=== PATIENT | male | born 2000 | race Caucasian/White ===

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

== ENCOUNTER 2024-11-05 08:00 | Outpatient (RCR) | payer OTHER, SELFPAY ==
--- NOTE | 2024-11-05 09:00 | BH.SGPN.GN ---
Behaviors/Verbalizations/Mental Status: [] Pt alert and oriented, neatly dressed and groomed. Eye contact good. Motor activity appropriate. Speech within normal limits. Affect congruent, mood hopeful. Thoughts linear, logical, no signs of hallucinations or delusions. Reviewed pt?s symptom tracker, no risk for suicidal ideation, plan, or intent 11/05/24. Client Response/Progress/Benefit: []Pt was an active participant in group discussions. Attentive. Able to identify mental health wins including ?realizing I need the help? and being able to stay at work yesterday without walking out. Pt's stressor today is ?work really sucks right now? sharing that he and his boss do not seem to have the same values. Pt is feeling hopeful? this morning. Pt receptive to feedback from peers which pt reported was helpful. Progress noted. Benefited from group support, encouragement, and feedback. Will continue in IOP to prevent decompensation, improve daily functioning, and increase emotional regulation skills. ?? Narrative Note: []
--- NOTE | 2024-11-05 10:10 | BH.SGPN.GN ---
Behaviors/Verbalizations/Mental Status: []Pt alert and oriented, neatly dressed and groomed. Eye contact fair. Motor activity appropriate. Speech within normal limits. Affect congruent, mood dysthymic. Thoughts linear, logical, no signs of hallucinations or delusions. Client Response/Progress/Benefit: [] Pt was attentive during psychoeducation and participated in group activity. Group discussed what contributes to a person?s perspective and how perspective can positively or negatively impact mental health treatment. Pt reflected on their perspective today and how it is impacting them. ?Pt appeared to benefit from increasing awareness of different perspectives and how they can affect mental health. Pt will continue IOP tx to improve emotion regulation, improve mood stability, and prevent decompensation.
--- NOTE | 2024-11-05 12:24 | BH.MDN ---
Multi-Disciplinary Note Note 60-min Individual: Time Started:: 11:15 Date: 11/05/24 Purpose of session/treatment goals addressed:: Purpose of session was to build rapport, gather background information, and start discussion about treatment goals. Eye Contact:: Good Motor Activity:: Appropriate Appearance:: Neat Speech:: Appropriate Mood:: Euthymic Affect:: Congruent Thoughts:: Linear, Logical and No evidence of hallucinations/delusions noted Staff Interventions:: CBT techniques, rapport building, strengths perspective, treatment planning and other (gather background information) Client Response:: Client shared on October 22, 2024 he was writing goodbye letters to his family but then his mom walked in and he opened up to her about what he was doing. This prompted him to go meet with the crisis team for a crisis assessment at the counseling center for suicidal ideation which he reported was passive thoughts and he was referred to the IOP program by the crisis team. The patient feels he had a bipolar mixed episode over the past several weeks characterized by increased irritability, anger outburst, impulsiveness, reckless behaviors such as driving fast, guilt, depression, crying spells and passive suicidal ideation. The patient has not taken any psychiatric medications for 8 months because he feels they made him too numb and groggy and took all of the experience of gurmeet out of life for him. He often becomes depressed after being hypomanic according to the patient. Client shared during this hypomanic state he was extremely angry for 2 of the days and broke a side table and put dents in his freezer door. Client shared he usually has about 2-3 hypomanic episodes a year, but noted this hypomanic episode lasted much longer and he scared himself that he started writing suicide notes because he's never done that before. He reports his daughter is protective against him attempting suicide and also his mother as he would not want to hurt his mother. He has had passive thoughts of twice in the past week. He denies active suicidal ideation, plan for suicide, homicidal ideation, hallucinations or delusions. Client reported while in [facility] he would like to get a more solid mental health diagnosis, explore medication options, and learn better ways to cope. Risks/Concerns:: See above in client response for suicidal thoughts and risk information. Client future oriented. Denies access to firearms and denies access to medications. Progress Toward Goals/Plan:: Pt's first day in program, limited progress noted. Session focused on building rapport, gathering background information (see psychosocial assessment for more information), and starting to discuss treatment goals. Plan is for client to continue IOP to improve mood stability, increase healthy coping, and prevent decompensation. Time Stopped:: 12:15
--- NOTE | 2024-11-05 14:01 | BH.MTP ---
Master Treatment Plan Patient Information Program Physician:: Dr. Whelan Primary Therapist:: TERRY Gil-S
--- NOTE | 2024-11-05 14:01 | BH.MTP ---
Master Treatment Plan Patient Information Program Physician:: Dr. Whelan Primary Therapist:: TERRY Gil-S
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
--- NOTE | 2024-11-06 10:05 | BH.SGPN.GN ---
Behaviors/Verbalizations/Mental Status: []Patient was alert and oriented, casually dressed and groomed. Eye contact good. motor activity appropriate. speech within normal limits. Affect congruent, mood dysthymic. Thoughts linear, logical, no signs of hallucinations or delusion. Client Response/Progress/Benefit: [] Pt participated in the group discussions AEB providing input, nodding and taking notes. Attentive during psychoeducation Goal Setting. Participated during the discussion on common barriers. Pt worked with group to identify common barriers to goal setting. Group also identified benefits of goals as sense of purpose, improved self-confidence, more motivation for other goals, sense of accomplishment, and improved mental health. Pt identified personal benefits to goal setting. Benefited from increased awareness of mental health benefits of goals as well as psychoeducation on SMART goal criteria. Will continue in IOP to improve mood stability, challenge distortions, and prevent decompensation.
[2024-11-06 10:21] VITALS: BP 133/80; PULSE 65
--- NOTE | 2024-11-06 12:46 | PCM.BH.PSYEV ---
Psychiatric Evaluation Initial Evaluation Initial Evaluation: History of Present Illness: [] The patient is a 24-year-old male with a girlfriend of over 3 years and a [id number] daughter with whom he lives. The patient has a history of bipolar disorder and anxiety and has a long psychiatric history with 5 prior psychiatric admissions with the most recent admission being in December 2023 at [facility]. He had a crisis assessment at the [facility] center on October 22, 2024 for suicidal ideation which were was passive but he was referred to the [facility] program by the crisis team. The patient feels he has had a mixed episode over the past several weeks characterized by increased irritability, anger outburst, impulsiveness, reckless behaviors such as driving fast, guilt, depression,'s crying spells and passive suicidal ideation. On October 22, 2024 he went to work and wrote goodbye letters to his family but then decided instead to go to the crisis center. The patient has not taken any psychiatric medications for 8 months because he feels they made him too numb and groggy and took all of the experience of gurmeet out of life for him. He often becomes depressed after being hypomanic according to the patient. He states that this hypomanic episode lasted longer than usual and he was rage cleaning, organizing the house and garage, irritable with his girlfriend and kicked a TV stand. He states he gets like this 2-3 times per year. He he had only 1 day of poor sleep during this episode. 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 He endorses hopelessness, worthlessness, anhedonia, feels he is a burden to everyone. Appetite and sleep are okay and he is getting 7 or 8 hours a night. He also endorses low energy, isolation and avoidance behaviors. He denies any history of self-harm. He drinks 1 or 2 energy drinks daily. He has some decreased concentration and endorses feeling guilty about the impact of his mental health needs on his family. He endorses passive suicidal ideation in hopes that he will not wake up tomorrow. For primary support he has his mother. He feels his daughter is protective against him committing suicide and also his mother as he would not want to hurt his mother. He has had passive thoughts of only twice in the past week. He denies active suicidal ideation, plan for suicide, homicidal ideation, hallucinations or delusions. Current Psychiatric Medications: [] No meds now and has not taken them for 6 to 8 months due to side effects making him numb, groggy and not able to experience gurmeet. He was on Abilify for 15 years up to 20 mg daily and did not like how he felt on it. He is also prescribed Wellbutrin, Lamictal and clonidine but is not taking them. Past Psychiatric History: [] Patient has been admitted 5 times total to psychiatric facilities which has met with his most recent 1 at [facility] in December 2023. He has a history of 4 5 suicide attempts primarily through overdose and once by hanging occurring between the ages of 15 and 23. He began counseling at age 13 after his father . He has also had other counseling with the most recent one in 2018. He has been on various meds including Zoloft and Prozac but they did not help. He finds Wellbutrin the most helpful. Substance Use History: [] The patient vapes e-cigarettes daily all throughout the day. He used to binge drink from age [age] and 1-1 alcoholic Anonymous meeting and does not drink as much now. He used LSD once and uses 1-2 hits of marijuana daily off of vape only to help with sleep at night. Allergies: [] No known allergies. 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 No medical issues and no surgeries. Family Psychiatric History: [] Father, maternal grandfather and paternal uncles have bipolar disorder. Mother has anxiety, depression and PTSD. No completed suicides in the family. His father and the whole side of his father's family have substance abuse issues. Personal/Social History: [] Patient was born and raised in [place]. His father of a heroin overdose at age 38 and his mother is his #1 supporter and the patient is very close to her. The patient thinks his childhood was mostly positive but his parents when he was 11 years old. His mother remarried and he had a good relationship with his stepfather. Patient feels guilty for being kicked out of the house in 2020 due to behavioral and drinking issues. He has 1 older and 1 younger biological brother and 2 stepsiblings with whom he feels closer. He currently lives with his girlfriend of over 3 years and their [id number]-sce daughter and states that their relationship is rough but has gotten a little better lately. He works as a railroad car cleaner for less than 6 months and is considering looking for new jobs. He graduated high school and had 1 semester of college. He enjoys being outside camping, fishing and boating. Legal History: [] No arrests. No DUIs. 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 Review of Systems: [] Review of systems includes occasional headaches but otherwise is negative except as noted in the present illness. Vital Signs: [] Vital signs are reviewed the nurses notes and updated and the patient is deemed medically able to participate in the IOP. Mental Status Examination: [] The patient is a 24-year-old male who appears normal for stated age and is casually dressed and groomed with good hygiene. He is cooperative during the interview and has no psychomotor agitation or retardation. Eye contact is good and speech is normal rate and rhythm and fluent with no pressure. Mood is irritable and pressed. Affect is minimally constricted. Thought process is goal-directed and organized. Thought content: There is evidence of recent passive thoughts of . There is no evidence of suicidal ideation, thoughts of self-harm, plan for suicide, homicidal ideation, hallucinations or delusions. Reality testing is intact. Intelligence is above average. Impulsivity is moderate. Insight is limited but some present. Judgment is intact. Diagnoses: [] 1. Bipolar 2 disorder (currently depressed and irritable) 2. Anxiety disorder, NOS 3. Primary support issues Plan: [] The patient will start the IOP and behavioral health at [facility] as the structure, support, education and group therapy will hopefully prevent worsening of the patient's symptoms. The risk, options, possible complications and side effects of the medications were discussed with the patient and he understands and accepts these. I recommended that the patient take medication for his highly variable moods and history of numerous psychiatric admissions and suicide attempts. The patient agrees to try Vraylar 1.5 mg p.o. daily if his mom agrees that it is an okay medication. Prescription is sent in for this. Lamictal could be added later to help prevent depression and stabilize mood. Strongly recommended that the patient discontinue all energy drink use as these are angiogenic and could contribute to irritability and anger outbursts. The patient should use coffee and wean slowly down to a reasonable doses of coffee such as 2 or 3 cups a day in the morning only. Patient will stay sober from all substance use. He will continue to follow-up with his outpatient providers and I will see the patient in follow-up in 2 weeks.
--- NOTE | 2024-11-06 12:46 | PCM.BH.PSYEV ---
Psychiatric Evaluation Initial Evaluation Initial Evaluation: History of Present Illness: [] The patient is a 24-year-old male with a girlfriend of over 3 years and a [id number]-[id number] daughter with whom he lives. The patient has a history of bipolar disorder and anxiety and has a long psychiatric history with 5 prior psychiatric admissions with the most recent admission being in December 2023 at [facility]. He had a crisis assessment at the [facility] on October 22, 2024 for suicidal ideation which were was passive but he was referred to the [facility] program by the crisis team. The patient feels he has had a mixed episode over the past several weeks characterized by increased irritability, anger outburst, impulsiveness, reckless behaviors such as driving fast, guilt, depression,'s crying spells and passive suicidal ideation. On October 22, 2024 he went to work and wrote goodbye letters to his family but then decided instead to go to the crisis center. The patient has not taken any psychiatric medications for 8 months because he feels they made him too numb and groggy and took all of the experience of gurmeet out of life for him. He often becomes depressed after being hypomanic according to the patient. He states that this hypomanic episode lasted longer than usual and he was rage cleaning, organizing the house and garage, irritable with his girlfriend and kicked a TV stand. He states he gets like this 2-3 times per year. He he had only 1 day of poor sleep during this episode. 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 He endorses hopelessness, worthlessness, anhedonia, feels he is a burden to everyone. Appetite and sleep are okay and he is getting 7 or 8 hours a night. He also endorses low energy, isolation and avoidance behaviors. He denies any history of self-harm. He drinks 1 or 2 energy drinks daily. He has some decreased concentration and endorses feeling guilty about the impact of his mental health needs on his family. He endorses passive suicidal ideation in hopes that he will not wake up tomorrow. For primary support he has his mother. He feels his daughter is protective against him committing suicide and also his mother as he would not want to hurt his mother. He has had passive thoughts of only twice in the past week. He denies active suicidal ideation, plan for suicide, homicidal ideation, hallucinations or delusions. Current Psychiatric Medications: [] No meds now and has not taken them for 6 to 8 months due to side effects making him numb, groggy and not able to experience gurmeet. He was on Abilify for 15 years up to 20 mg daily and did not like how he felt on it. He is also prescribed Wellbutrin, Lamictal and clonidine but is not taking them. Past Psychiatric History: [] Patient has been admitted 5 times total to psychiatric facilities which has met with his most recent 1 at [facility] in December 2023. He has a history of 4 5 suicide attempts primarily through overdose and once by hanging occurring between the ages of 15 and 23. He began counseling at age 13 after his father . He has also had other counseling with the most recent one in 2018. He has been on various meds including Zoloft and Prozac but they did not help. He finds Wellbutrin the most helpful. Substance Use History: [] The patient vapes e-cigarettes daily all throughout the day. He used to binge drink from age [age] and 1-1 alcoholic Anonymous meeting and does not drink as much now. He used LSD once and uses 1-2 hits of marijuana daily off of vape only to help with sleep at night. Allergies: [] No known allergies. 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 No medical issues and no surgeries. Family Psychiatric History: [] Father, maternal grandfather and paternal uncles have bipolar disorder. Mother has anxiety, depression and PTSD. No completed suicides in the family. His father and the whole side of his father's family have substance abuse issues. Personal/Social History: [] Patient was born and raised in [place]. His father of a heroin overdose at age 38 and his mother is his #1 supporter and the patient is very close to her. The patient thinks his childhood was mostly positive but his parents when he was 11 years old. His mother remarried and he had a good relationship with his stepfather. Patient feels guilty for being kicked out of the house in 2020 due to behavioral and drinking issues. He has 1 older and 1 younger biological brother and 2 stepsiblings with whom he feels closer. He currently lives with his girlfriend of over 3 years and their 96-aecij-eih daughter and states that their relationship is rough but has gotten a little better lately. 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 He graduated high school and had 1 semester of college. He enjoys being outside camping, fishing and boating. Legal History: [] No arrests. No DUIs. 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 Review of Systems: [] Review of systems includes occasional headaches but otherwise is negative except as noted in the present illness. Vital Signs: [] Vital signs are reviewed the nurses notes and updated and the patient is deemed medically able to participate in the IOP. Mental Status Examination: [] The patient is a 24-year-old male who appears normal for stated age and is casually dressed and groomed with good hygiene. He is cooperative during the interview and has no psychomotor agitation or retardation. Eye contact is good and speech is normal rate and rhythm and fluent with no pressure. Mood is irritable and pressed. Affect is minimally constricted. Thought process is goal-directed and organized. Thought content: There is evidence of recent passive thoughts of . There is no evidence of suicidal ideation, thoughts of self-harm, plan for suicide, homicidal ideation, hallucinations or delusions. Reality testing is intact. Intelligence is above average. Impulsivity is moderate. Insight is limited but some present. Judgment is intact. Diagnoses: [] 1. Bipolar 2 disorder (currently depressed and irritable) 2. Anxiety disorder, NOS 3. Primary support issues Plan: [] The patient will start the IOP and behavioral health at [facility] as the structure, support, education and group therapy will hopefully prevent worsening of the patient's symptoms. The risk, options, possible complications and side effects of the medications were discussed with the patient and he understands and accepts these. I recommended that the patient take medication for his highly variable moods and history of numerous psychiatric admissions and suicide attempts. The patient agrees to try Vraylar 1.5 mg p.o. daily if his mom agrees that it is an okay medication. Prescription is sent in for this. Lamictal could be added later to help prevent depression and stabilize mood. Strongly recommended that the patient discontinue all energy drink use as these are angiogenic and could contribute to irritability and anger outbursts. The patient should use coffee and wean slowly down to a reasonable doses of coffee such as 2 or 3 cups a day in the morning only. Patient will stay sober from all substance use. He will continue to follow-up with his outpatient providers and I will see the patient in follow-up in 2 weeks.
--- NOTE | 2024-11-06 12:58 | BH.DR.ITP ---
Initial Treatment Plan Patient Information Visit Information: ADMISSION DATE: EXPECTED LOS: 4-6 weeks Problems/Symptoms Problem #1:: Mood instability Symptom:: Irritability, anger outburst, impulsiveness, guilt, depression, crying spells, recent passive suicidal ideation, passive thoughts of , history of hypomania, worthlessness, hopelessness, anhedonia, low energy, isolation, guilt Problem #2:: Anxiety Symptom:: Worry, rumination, avoidance
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
--- NOTE | 2024-11-07 09:00 | BH.SGPN.GN ---
Behaviors/Verbalizations/Mental Status: [] Pt alert and oriented, neatly dressed and groomed. Eye contact good. Motor activity appropriate. Speech within normal limits. Affect congruent, mood dysthymic. Thoughts linear, logical, no signs of hallucinations or delusions. Reviewed pt?s symptom tracker, no risk for suicidal ideation, plan, or intent 11/07/24. Client Response/Progress/Benefit: []Pt was an active participant in group discussions. Attentive. Able to identify mental health wins including using de-escalation skills with his girlfriend and being able to ?bounce back from an argument? with his girlfriend which pt reports does not happen. Pt's stressor today is ?work has just been so awful.? Pt is feeling discontented? this morning. Pt receptive to feedback from peers which pt reported was helpful. Progress noted. Benefited from group support, encouragement, and feedback. Will continue IOP tx to promote use of healthy coping skills, increase distress tolerance, and improve mood stability. ?? Narrative Note: []
--- NOTE | 2024-11-07 10:00 | BH.SGPN.GN ---
Behaviors/Verbalizations/Mental Status: []Eye contact is good. Motor activity is appropriate. Appearance is casual. Speech is Appropriate. Mood is anxious. Affect is congruent. Thoughts are linear and logical. No evidence of psychosis. Client Response/Progress/Benefit: []Pt was an active participant in group discussion. Engaged and attentive during psychoeducation and interactive discussion on coping skills, why people use unhealthy coping skills, how to replace unhealthy coping skills, and internal vs external coping skills. Attentive as peers came up with list of unhealthy coping skills. Pt reported personally, they tend to either isolate or shut down, though often both occur. Group discussed the effects of maladaptive coping skills on mental health. Benefited from increased understanding of unhealthy coping skills and the need for developing healthy internal and external coping skills. Actively participated during experiential group activity and was able to related this activity to group topic. Will continue in IOP to promote healthy thinking patterns, apply healthy coping skills, and promote mood stability. Narrative Note: []
--- NOTE | 2024-11-07 11:05 | BH.SGPN.GN ---
Behaviors/Verbalizations/Mental Status: []Pt alert and oriented, casual in appearance. Eye contact good. Motor activity appropriate. Speech within normal limits. Affect congruent, mood euthymic. Thoughts linear, logical, no signs of hallucinations or delusions. Client Response/Progress/Benefit: [] Pt engaged participant AEB provided contributions during discussion, taking notes, and listening attentively to others. Engaged in the provided activity. Group discussed the different categories of coping skills which included distraction, emotional release, grounding, self-love, and thought challenging. Pt participated in creating a coping skills ?menu? from the different categories of coping skills. Pt's coping skill menu included: yard work, something creative, breathing, celebrating wins, and playing [facility] advocate on thoughts. Appeared to benefit from increasing repertoire of healthy coping skills. Will continue IOP to promote healthy coping, challenge distortions, and prevent decompensation.
--- NOTE | 2024-11-11 09:00 | BH.SGPN.GN ---
Behaviors/Verbalizations/Mental Status: [] Eye contact is good. Motor activity is appropriate. Appearance is casual. Speech is Appropriate. Mood is irritable. Affect is congruent. Thoughts are linear and logical. No evidence of psychosis. Reviewed daily check in sheet and no reports of suicidal ideations or intent. Client Response/Progress/Benefit: [] Pt was an active participant in group discussion. Attentive. Daily symptom tracker notes / for agitation. Able to identify mental health wins and healthy habits. According to pt he has been utilizing calming techniques and communication skills more consistently and has seen benefits. He reports only one ?little episode? however did not elaborate further. It?s unclear if this was anger outburst, depressive episode, or panic attack. Reports feeling ?ye? today. Stating he is in the middle ?not happy and not sad?. Primary stressors related to dealing with a difficulty person in his life. Group provided empathy and discussed strategies for dealing with difficulty people which was beneficial. Will continue in IOP to maintain safety, prevent decompensation, and increase healthy coping. Narrative Note: []
--- NOTE | 2024-11-11 10:05 | BH.SGPN.GN ---
Behaviors/Verbalizations/Mental Status: []Pt alert and oriented, neatly dressed and groomed. Eye contact good. Motor activity appropriate. Speech within normal limits. Affect congruent, mood agitated. Thoughts linear, logical, no signs of hallucinations or delusions. Client Response/Progress/Benefit: [] Pt was an active participant during interactive group discussions. Attentive during psychoeducation on the six types of boundaries (physical, emotional, intellectual, sexual, time, and material) AEB note-taking and providing input. Along with peers contributed to interactive discussion on defining what a boundary is in mental health. Pt along with peers identified challenges to setting boundaries and pt reported a personal barrier of not knowing what boundary to set. Pt along with peers identified the benefits to setting boundaries such as better relationships, increased time for self-care, and increased confidence, and feeling more heard. Group discussed the mental health benefits to establishing boundaries at work, school, and home. Pt benefited from increased awareness and insight on the importance/benefit to setting health boundaries. Will continue in IOP to prevent decompensation, improve daily functioning, and increase self-awareness. Narrative Note: []
--- NOTE | 2024-11-11 11:10 | BH.SGPN.GN ---
Behaviors/Verbalizations/Mental Status: [] Eye contact is good. Motor activity is appropriate. Appearance is casual. Speech is Appropriate. Mood is dysthymic. Affect is congruent. Thoughts are linear and logical. No evidence of psychosis. Client Response/Progress/Benefit: [] Client responded well to session AEB listening attentively to peers, providing input, as well as taking notes throughout. Group discussed different styles of boundary setting. Reports connecting most with rigid style of boundary setting. Participated in small group discussion brainstorming various strategies for improving healthy boundary setting. Pt took time to complete reflection on which skills would like to implement to improve boundaries. Plans to encourage his girlfriend to go to therapy by helping her find local resources. Seemed to benefit from increased awareness of how different boundary styles can impact mental health. Will continue IOP tx to increase consistent application of skills and prevent decompensation. Narrative Note: []
== END 2024-11-13 23:59 ==
LOC: BHIOP 08:00
PROVIDERS: Referring Provider Psychiatry & Neurology Psychiatry; Visit Provider Psychiatry & Neurology Psychiatry
DX: F31.81 Bipolar II disorder (principal); F41.9 Anxiety disorder, unspecified
CPT/HCPCS: S9480; 90834; 90837; 90853

== ENCOUNTER → 2025-02-19 | Outpatient (CLI) | payer OTHER, SELFPAY ==
--- OUTSIDE RECORDS SUMMARY | 2025-02-19 10:26 | XMS RPT_ITS | CCD ---
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 Name Role Phone WESLY RODRIGUEZ Attending Unavailable NO, PHYSICIAN Primary Care Unavailable Flor NOEL, Latoya De Souza Primary Care Provider LATOYA CHAMBERS Attending Unavailab le LATOYA CHAMBERS Primary Care Unavailab le Unavailable Primary Care Provider Unavailabl e No, Physician Primary Care Provider Unavailabl e BENITO CHIANG Consulting Unavailable RAFAL TREVINO Attending Unavailable NASREEN HADLEY Admitting Unavailable NO, PHYSICIAN Primary Care Unavailable NO, PHYSICIAN Primary Care Unavailable SHELLY NARANJO Attending Unavailable Self, Self Primary Care Provider Unavailabl e Unavailable Primary Care Provider Unavailabl e MERLIN CLEANING Attending Unavailable SELF, SELF Primary Care Unavailable SELF, SELF Referring Unavailable SELF, SELF Primary Care Unavailable EDIS CASTLE Attending Unavail able GIORGIO KEN Attending Unavailable PINA COBOS Attending Unavailable PHYSICIAN, NONE Primary Care Unavailable LENARD GRUBBS DO Attending Unavailable PHYSICIAN, NONE Primary Care Unavailable CHRISTIANO STAPLETON Attending Unavaila ble Unavailable Primary Care Provider UnavailJhoana Renteria Referring Unavailable Care Physician, No Primary Primary Care Unava ilable Jhoana Epstein Attending Unavailable Jhoana Epstein Referring Unavailable Care Physician, No Primary Primary Care Unava ilJhoana Jones Attending Unavailable SELF Referring Unavailable DEMETRIS KING JR Attending Unavailable Medications Current Medications Medication Drug Class(es) Dates Sig (Normalized) Sig (Original) acetaminophen 325 mg / oxyCODONE hydrochloride 5 mg oral tablet (2 sources) Opioid Agonist Start: 07-01-2023 End: 07-01-2023 oxyCODONE-acetamin ophen (PERCOCET) 5-325 MG per tablet 1 tablet Start: 07-01-2023 End: 07-04-2023 take 1 tablet by mouth every six hours as needed oxyCODONE-acetaminophen 5-325 MG per tablet Indications: Pain, dental Take 1 tablet by mouth every 6 hours as needed for up to 3 days. 12 tablet 0 07/01/2023 07/04/2023 Active amoxicillin 875 mg / clavulanate 125 mg oral tablet (4 sources) Penicillin-class Antibacterial Start: 06-30-2023 End: 07-07-2023 take 1 tablet by mouth every twelve hours Amoxicillin-clavulanate 875-125 MG tablet Take 1 tablet by mouth every 12 hours for 7 days. 14 tablet 0 06/30/2023 07/07/2023 Active Start: 06-30-2023 End: 06-30-2023 Amoxicillin-clavulanate (AUG MENTIN) 875-125 MG per tablet 1 tablet ARIPiprazole 15 mg oral tablet (10 sources) Atypical Antipsychotic Start: 01-18-2023 End: 02-17-2023 take 1 tablet by mouth once daily ARIPiprazole (ABILIFY) 15 MG tablet Take 1 (one) tablet (15 mg total) by mouth nightly . 30 tablet 0 01/18/2023 02/17/2023 Active Start: 01-16-2023 ARIPiprazole ( ABILIFY) tablet 10 mg Start: 01-16-2023 End: 01-18-2023 ARIPiprazole (ABILIFY) table t 15 mg Start: 01-14-2023 End: 01-16-2023 ARIPiprazole (ABILIFY) table t 5 mg Start: 11-29-2022 End: 01-18-2023 take 1 tablet by mouth once daily ARIPiprazole (Abilify) 2 MG tablet Indications: Severe episode of recurrent major depressive disorder, without psychotic features (HCC) Take 1 (one) tablet (2 mg total) by mouth daily . 30 tablet 1 11/29/2022 01/18/2023 Discontinued (Stop Taking at Discharge) brompheniramine maleate 0.4 mg/ml / dextromethorphan hydrobromide 2 mg/ml / pseudoephedrine hydrochloride 6 mg/ml oral solution (1 source) alpha-Adrenergic Agonist, Uncompetitive H-ouyafv-K-aspartate Receptor Antagonist, Sigma-1 Agonist Start: 11-14-2024 End: 11-21-2024 take 10 mL by mouth four times daily as needed Mjtkgmqhlpexztq-Zjolzoben-QN (BROMFED DM) 2-30-10 mg/5 mL syrup Indications: Fatigue, unspecified type , Acute cough Take 10 mL by mouth four times a day as needed (Cold Symptoms) for up to 7 days. 200 mL 11/14/2024 11/21/2024 Active dextromethorphan hydrobromide 15 mg / guaiFENesin 400 mg / pseudoephedrine hydrochloride 60 mg oral tablet (3 sources) alpha-Adrenergic Agonist, Uncompetitive M-oxppwq-N-aspartate Receptor Antagonist, Sigma-1 Agonist Start: 06-28-2023 take 1 tablet by mouth every six hours as needed pseudoephedrine-dextromethorp zamudio-guaiFENesin (Capmist DM) 60-15-400 MG tablet Take 1 tablet by mouth every 6 hours as needed for Other (Use as needed for cough & congestion.). 30 tablet 0 06/28/2023 Active escitalopram 10 mg oral tablet (8 sources) Serotonin Reuptake Inhibitor Start: 03-28-2023 take 1 tablet by mouth once daily Escitalopram 10 MG tablet Take 1 tablet by mouth daily. 0 03/28/2023 Active Start: 01-14-2023 End: 01-16-2023 escitalopram oxalate (LEXAPR O) tablet 20 mg Start: 11-29-2022 End: 02-17-2023 escitalopram oxalate (LEXAPR O) tablet 10 mg FLUoxetine 10 mg oral capsule (3 sources) Serotonin Reuptake Inhibitor Start: 02-24-2022 End: 03-24-2022 take 1 capsule by mouth once daily, then take 2 capsules by mouth once daily FLUoxetine (PROZAC) 10 MG capsule Take 1 (one) capsule (10 mg total) by mouth daily for 7 days, THEN 2 (two) capsules (20 mg total) daily for 21 days. 49 capsule 0 02/24/2022 03/24/2022 Active ibuprofen 800 mg oral tablet (3 sources) Nonsteroidal Anti-inflammatory Drug Start: 11-14-2024 End: 11-21-2024 take 1 tablet by mouth three times daily as needed for pain ibuprofen (MOTRIN) 800 mg tablet Indications: Fatigue, unspecified type , Acute cough Take 1 tablet by mouth three times a day as needed for pain or fever (specify temp.) for up to 7 days. 21 tablet 11/14/2024 11/21/2024 Active Start: 06-30-2023 End: 06-30-2023 Ibuprofen (MOTRIN) tablet 60 0 mg Start: 01-14-2023 End: 01-18-2023 take 1 tablet by mouth every six hours as needed for pain ibuprofen (ADVIL,MOTRIN) tablet 600 mg lamoTRIgine 100 mg oral tablet (6 sources) Mood Stabilizer, Anti-epileptic Agent Start: 03-28-2023 take 1 tablet by mouth once daily lamoTRIgine 100 MG tablet Take 1 tablet by mouth daily. 0 03/28/2023 Active Start: 01-19-2023 lamoTRIgine (L AMICTAL) 25 MG tablet 1 daily X 11 days and than 2 daily times X 2wks and than 4 daily thereafter. Watch for rash/fever Start: 01/19/23. 120 tablet 0 01/19/2023 Active Start: 01-19-2023 lamoTRIgine (L AMICTAL) 25 MG tablet 1 daily X 11 days and than 2 daily times X 2wks and than 4 daily thereafter. Watch for rash/fever Start: 01/19/23. 120 tablet 0 01/19/2023 Start: 01-16-2023 End: 01-18-2023 lamoTRIgine (LAMICTAL) table t 25 mg lidocaine hydrochloride 20 mg/ml mucous membrane topical solution (3 sources) Antiarrhythmic, Amide Local Anesthetic Start: 06-28-2023 take 15 mL oropharyngeal route every four hours as needed Lidocaine HCl (Lidocaine viscous) 2 % Solution 15 mL by Mouth/Throat route every 4 hours as needed. 100 mL 0 06/28/2023 Active nicotine 2 mg chewing gum (3 sources) Cholinergic Nicotinic Agonist Start: 01-18-2023 End: 02-17-2023 take 2-4 mg oropharyngeal route every two hours as needed nicotine polacrilex (NICORETTE) 2 mg gum Apply 1 (one) each to 2 (two) each (2-4 mg total) to the mouth or throat every 2 (two) hours as needed for smoking cessation . 100 each 0 01/18/2023 02/17/2023 Active Start: 01-14-2023 End: 01-18-2023 take 2-4 mg oropharyngeal route every hour as needed nicotine polacrilex (NICORETTE) gum 2-4 mg Completed/Discontinued Medications Medication Drug Class(es) Dates Sig (Normalized) Sig (Original) aluminum hydroxide 40 mg/ml / magnesium hydroxide 40 mg/ml / simethicone 4 mg/ml oral suspension (1 source) Start: 01-14-2023 End: 01-18-2023 take 30 mL by mouth every four hours as needed aluminum-magnesium hydroxide-simethico ne (MAALOX PLUS) 200-200-20 mg/5 mL suspension 30 mL 2 ml benztropine mesylate 1 mg/ml injection (1 source) Anticholinergic, Antihistamine Start: 01-14-2023 End: 01-18-2023 inject 2 mg by intramuscular injection every twenty-four hours as needed benztropine (COGENTIN) injection 2 mg cloNIDine hydrochloride 0.1 mg oral tablet (1 source) Central alpha-2 Adrenergic Agonist Start: 11-29-2022 End: 01-18-2023 take 1 tablet by mouth at bedtime as needed cloNIDine HCL (CATAPRES) 0.1 MG tablet Indications: Insomnia, unspecified type Take 1 (one) tablet (0.1 mg total) by mouth at bedtime as needed . 30 tablet 1 11/29/2022 01/18/2023 Discontinued (Stop Taking at Discharge) hydrOXYzine hydrochloride 25 mg oral tablet (1 source) Antihistamine Start: 01-14-2023 End: 01-18-2023 take 1 tablet by mouth every six hours as needed for anxiety hydrOXYzine (ATARAX) tablet 50 mg magnesium hydroxide 80 mg/ml oral suspension (1 source) Start: 01-14-2023 End: 01-18-2023 magnesium hydroxide (MOM) 400 mg/5 mL suspension 2,400 mg OLANZapine 5 mg oral tablet (1 source) Atypical Antipsychotic Start: 01-14-2023 End: 01-18-2023 take 1 tablet by mouth every six hours as needed OLANZapine (ZYPREXA) tablet 5 mg OLANZapine (ZyPREXA) injection 5 mg (1 source) Start: 01-14-2023 End: 01-18-2023 OLANZapine (ZyPREXA) injection 5 mg ondansetron 4 mg disintegrating oral tablet (1 source) Serotonin-3 Receptor Antagonist Start: 07-01-2023 End: 07-01-2023 Ondansetron (ZOFRAN-ODT) disintegrating tablet 4 mg traZODone hydrochloride 50 mg oral tablet (1 source) Serotonin Reuptake Inhibitor Start: 01-14-2023 End: 01-18-2023 traZODone (DESYREL) tablet 50 mg Problems Active Problems Problem Classification Problem Date Documented Da te Episodic/Chronic Anxiety disorders (10 sources) Mixed anxiety and depressive disorder; Translations: [Anxiety disorder, unspecified] Onset: 02-24-2022 Chronic Disorders of teeth and jaw (6 sources) Pulpitis; Translations: [Reversible pulpitis] Onset: 06-30-2023 06-30-2023 Episodic Fever of unknown origin (3 sources) Fever; Translations: [Fever, unspecified] Onset: 06-30-2023 06-30-2023 Episodic Malaise and fatigue (2 sources) Fatigue; Translations: [Other fatigue] Onset: 11-14-2024 11-14-2024 Episodic Mood disorders (10 sources) Major depressive disorder, single episode, unspecified; Translations: [Major depressive affective disorder, single episode, unspecified] Onset: 2022 Resolved: 01-14-2023 01-14-2023 Chronic Other lower respiratory disease (1 source) Cough; Translations: [Acute cough] 11-14-2024 Episodic Other upper respiratory infections (6 sources) Sore throat symptom; Translations: [Acute pharyngitis, unspecified] Onset: 06-28-2023 06-28-2023 Episodic Syncope (3 sources) Vasovagal syncope; Translations: [Syncope and collapse] Onset: 12-30-2022 12-30-2022 Episodic Unclassified (1 source) No additional problems on file Unclassified (1 source) Acute cough; Translations: [Acute cough] Onset: 11-14-2024 Viral infection (3 sources) Viral disease; Translations: [Viral infection, unspecified] Onset: 06-28-2023 06-28-2023 Episodic Past or Other Problems Problem Classification Problem Date Documented Da te Episodic/Chronic Administrative/social admission (5 sources) Patient encounter status; Translations: [Persons encountering health services in other specified circumstances] Onset: 02-24-2022 Episodic Residual codes; unclassified (1 source) Insomnia; Translations: [Insomnia, unspecified] Onset: 2022 2022 Episodic Suicide and intentional self-inflicted injury (2 sources) Suicidal ideations; Translations: [Suicidal ideations] Onset: 05-11-2022 Episodic Unclassified (3 sources) Onset: 12-30-2022 12-30-2022 NEGATED: Highlighted row has been ruled out!Unclassified (3 sources) No known active problems 06-28-2023 Results Test Name Value Interpretation Reference Range Facility ED NOTEon 01-30-2025 ED NOTE HNO ID: [id number] Author: ARTUR SHERMAN RN Service: Emergency Medicine Author Type: Registered Nurse Type: ED Notes Filed: 01/30/2025 21:09 Note Text: Pt states does not want to wait hours for room to be available. States is going to go somewhere that isn't as busy. Pt educated to come back if changes or he he still wants evaluated. Pt verbalized understanding Normal [facility] ED Triage Noteon 01-30-2025 ED Triage Note HNO ID: [id number] Author: DAVE MADRID PA-C Service: ? Author Type: Physician Laboratory Associate Type: ED Triage Notes Filed: 01/30/2025 21:10 Note Text: ED TRIAGE PROVIDER NOTE Patient Name: Abel Benitez Service Date: 01/30/25 BRIEF HPI: This is a 24 year old male who presents to the ED with: Syncopal episode. Patient states he became lightheaded today sat on the floor and then passed out. He states he has passed out approximately 5 times over the last 2 years. He has had some testing. He states he was never really told what the issue was. Denies chest pain palpitations. I suspect vasovagal syncope BRIEF EXAM: NAD Awake and Alert Non labored breathing No focal neurological deficits Heart regular rate and rhythm Respirations clear INITIAL WORKUP AND DECISION MAKING: Orders Placed This Encounter CBC w/ diff BMP High Sensitivity Troponin I with Reflex for ED Chest Pain NaCl 0.9% 1,000 mL iv bolus EKG SIGNATURE: Dave Madrid PA-C [facility] CNOVon 11-14-2024 CNOV Office Visit ([facility] ) ABEL BENITEZ ([id number]) 4 M Date Time Provider Department 11/14/24 5:45 PM DEMETRIS KING JR [facility] During your visit today, we recorded the following information about you: Temperature Pulse Respiration Blood pressure 99.2 degrees 105/minute 20/minute 144/88 Weight 104.2 kg Demetris King Jr., MUSIC PRODUCER.[facility] 11/14/2024 9:19 PM Signed [facility] Salima Benitez is a 24 year old male. The patient is a 23-year-old male presenting with acute onset of sore throat, headaches, myalgias, and fatigue. Patient presents with: Cough: Cough, body aches, fatigue, sore throat, diarrhea x 3 days HPI Acute URI Symptoms: - Onset of symptoms began Monday night/Monday morning. - Severe sore throat described as feeling like a branding iron or cigarette in the back of the throat. - Headaches, myalgias, and fatigue. - Low-grade fever noted during triage; has not checked temperature at home. - Mild cough, described as nothing crazy. - Nasal congestion and difficulty breathing through the nose. - Thick, phlegmy mucus in the throat, difficult to expectorate. - Denies diarrhea. - Has not been around anyone with strep throat. - Stayed home from work today due to symptoms. Review of Systems Constitutional: Positive for fatigue and fever. HENT: Positive for sinus pain. Respiratory: Positive for cough. Gastrointestinal: Negative for abdominal pain. Neurological: Positive for headaches. Objective BP 144/88 Pulse 105 Temp 37.3 ?C (99.2 ?F) (Temporal) Resp 20 Wt 104.2 kg (229 lb 12.8 oz) SpO2 98% Physical Exam General: No acute distress. HEENT: Tympanic membranes pearly william, no signs of infection; ear canals unremarkable; pharynx with significant mucus, no exudate. CV: Heart sounds normal, regular rhythm. Abd: Bowel sounds normal; no tenderness to palpation. Skin: Warm, dry. Tests: (Today) Combined COVID-19, Influenza, and RSV test: Results pending 1. Fatigue, unspecified type (R53.83) 2. Acute cough (R05.1) - Onset of symptoms began Monday morning, including severe pharyngitis, cephalalgia, myalgia, and fatigue. Low-grade fever recorded during triage. Mild cough and nasal congestion reported. No significant dyspnea or abdominal tenderness noted on examination. - Tympanic membranes are pearly william with no signs of infection; ear canals are unremarkable. Oropharyngeal examination reveals significant mucus without exudate. - Differential diagnosis includes viral upper respiratory infection, influenza, and COVID-19. - Ordered respiratory panel to test for COVID-19, influenza, and RSV; results expected tomorrow. - Recommended staying home from work and school until results are available. - Initiated Bromfed DM for cough and decongestion, advised use of Mucinex with adequate hydration (8-12 glasses of water per day) to facilitate mucus clearance. - Prescribed ibuprofen 800 mg for 7 days to manage pain and inflammation. - Patient understands and agrees with the treatment plan. { and Recording using [employer] software for draft documentation of the visit was discussed with the patient/authorized investment representative; all questions welcomed and answered. Patient/authorized investment representative agreed to proceed MDM Procedures Demetris King Jr., APRN.[facility] 11/14/2024 6:36 PM Signed Use Tylenol and the prescribed ibuprofen (800?mg for 7 days) as needed for pain, fever, or discomfort. You may use Bromfed DM if you need additional relief from your cough or congestion (note it lasts about 6 hours). Your COVID/influenza test results will be available tomorrow; please plan to stay home tomorrow while you wait for the results. Rest and take it slow with work and activities until you feel better. Referring Provider: SELF [[id number]] Allergies As of Date: 11/14/2024 (No Known Allergies) Date Reviewed: 11/14/2024 Reviewed by: Demetris King Jr., MUSIC PRODUCER.[facility] - Fully Assessed Reason for Visit: Cough [28] Cmt: Cough, body aches, fatigue, sore throat, diarrhea x 3 days Primary Visit Diagnosis:Fatigue, unspecified type [R53.83] Other Visit Diagnosis:Acute cough [R05.1] Order(s):COVID AND INFLUENZA A/B AND RSV PCR, ROUTINE [SQCVFLRS] Order #: [id number]. #:[id number] Brompheniramine-Pseud oeph-DM (BROMFED DM) 2-30-10 mg/5 mL syrupTake 10 mL by mouth four times a day as needed (Cold Symptoms) for up to 7 days.Disp: 200 mLRfl: 0 ibuprofen (MOTRIN) 800 mg tabletTake 1 tablet by mouth three times a day as needed for pain or fever (specify temp.) for up to 7 days.Disp: 21 tabletRfl: 0 Prescriptions as of 11/14/2024 - Brompheniramine-Pseud oeph-DM (BROMFED DM) 2-30-10 mg/5 mL syrup Take 10 mL by mouth four times a day as needed (Cold Symptoms) for up to 7 days. - ibuprofen (MOTRIN) 800 mg tablet Take 1 tablet by mouth thre (more content not included)... Normal [facility] .Auto Diffon 09-21-2023 Basophil, Absolute 0.1 10 3/mcL Normal 0.0-0.3 [facility] ([place]) Comment on above: Performed By: #### A SAL, CMP, CBC, MDW, ADIFF, MORPH, GFR, ALC #### [facility] [address] [place], [place] [address] Basophils/100 WBC (Bld) 0.9 % Normal 0.0-2.5 [facility] ([place]) Comment on above: Performed By: #### A SAL, CMP, CBC, MDW, ADIFF, MORPH, GFR, ALC #### [facility] [address] [place], [place] [address] Eosinophil, Absolute 0.1 10 3/mcL Normal 0.0-0.7 [facility] ([place]) Comment on above: Performed By: #### A SAL, CMP, CBC, MDW, ADIFF, MORPH, GFR, ALC #### [facility] [address] [place], [place] [address] Eosinophils/100 WBC (Bld) 1.1 % Normal 0.0-6.0 [facility] ([place]) Comment on above: Performed By: #### A SAL, CMP, CBC, MDW, ADIFF, MORPH, GFR, ALC #### [facility] [address] [place], [place] [address] Lymphocyte, Absolute 2.4 10 3/mcL Normal 0.9-4.3 [facility] ([place]) Comment on above: Performed By: #### A SAL, CMP, CBC, MDW, ADIFF, MORPH, GFR, ALC #### [facility] [address] [place], [place] [address] Lymphocytes/100 WBC (Bld) 34.5 % Normal 20.0-40.0 [facility] ([place]) Comment on above: Performed By: #### A SAL, CMP, CBC, MDW, ADIFF, MORPH, GFR, ALC #### [facility] [address] [place], [place] [address] Monocyte, Absolute 0.5 10 3/mcL Normal 0.1-1.4 [facility] ([place]) Comment on above: Performed By: #### A SAL, CMP, CBC, MDW, ADIFF, MORPH, GFR, ALC #### [facility] [address] [place], [place] [address] Monocytes/100 WBC (Bld) 7.4 % Normal 2.0-13.0 [facility] ([place]) Comment on above: Performed By: #### A SAL, CMP, CBC, MDW, ADIFF, MORPH, GFR, ALC #### [facility] [address] [place], [place] [address] Neutrophils/100 WBC (Bld) 56.1 % Normal 50.0-75.0 [facility] ([place]) Comment on above: Performed By: #### A SAL, CMP, CBC, MDW, ADIFF, MORPH, GFR, ALC #### [facility] [address] [place], [place] [address] .GFRon 09-21-2023 GFR Non- 79 ml/min/1.73sqm Normal [facility] ([place]) Comment on above: Result Comment: GFR Population mean for , Non- Americans Ages 20-29 = 116 mL/min/1.73 sq.m. Ages 30-39 = 107 mL/min/1.73 sq.m. Ages 40-49 = 99 mL/min/1.73 sq.m. Ages 50-59 = 93 mL/min/1.73 sq.m. Ages 60-69 = 85 mL/min/1.73 sq.m. Ages 70+ = 75 mL/min/1.73 sq.m. Chronic Kidney Disease: Less than 60 mL/min/1.73 square meters End Stage Renal Disease: Less than 15 mL/min/1.73 square meters Performed By: #### A CETA, DG #### [facility] [address] [place], [place] [address] GFR 96 ml/min/1.73sqm Normal [facility] ([place]) Comment on above: Result Comment: GFR Population mean for , Non- Americans Ages 20-29 = 116 mL/min/1.73 sq.m. Ages 30-39 = 107 mL/min/1.73 sq.m. Ages 40-49 = 99 mL/min/1.73 sq.m. Ages 50-59 = 93 mL/min/1.73 sq.m. Ages 60-69 = 85 mL/min/1.73 sq.m. Ages 70+ = 75 mL/min/1.73 sq.m. Chronic Kidney Disease: Less than 60 mL/min/1.73 square meters End Stage Renal Disease: Less than 15 mL/min/1.73 square meters Performed By: #### A CETA, DG #### [facility] [address] [place], [place] [address] .MDWon 09-21-2023 Monocyte Distribution Width 16.09 Normal 0.00-20.00 [facility] ([place]) Comment on above: Result Comment: For ED adult patients suspected of sepsis, MDW<=20.0 does not rule out sepsis or risk of sepsis Performed By: #### A SAL, CMP, CBC, MDW, ADIFF, MORPH, GFR, ALC #### [facility] [address] [place], [place] [address] .Morphon 09-21-2023 Platelet Estimate Normal Normal [facility]) Comment on above: Performed By: #### A SAL, CMP, CBC, MDW, ADIFF, MORPH, GFR, ALC #### [facility] [address] [place] [id number] .NEUABSon 09-21-2023 Neutrophil, Absolute 3.9 10 3/mcL Normal 2.3-8.1 [facility] ([place]) Comment on above: Performed By: #### A SAL, CMP, CBC, MDW, ADIFF, MORPH, GFR, ALC #### [facility] [address] [place] [address] ACETAon 09-21-2023 Acetaminophen [Mass/Vol] 0.0 ug/mL Normal 10.0-30.0 [facility]) Comment on above: Performed By: #### A CETA, DG #### [facility] [address] [place] [id number] Vivienne 09-21-2023 Ethanol Level 4 mg/dL High 0-3 [facility] ([place]) Comment on above: Performed By: #### A SAL, CMP, CBC, MDW, ADIFF, MORPH, GFR, ALC #### [facility] [address] [place] [id number] CBCon 09-21-2023 Erythrocyte distribution width (RBC) [Ratio] 13.1 % Normal 11.5-15.5 [facility] ([place]) Comment on above: Performed By: #### A SAL, CMP, CBC, MDW, ADIFF, MORPH, GFR, ALC #### [facility] [address] [place] [id number] Hematocrit (Bld) [Volume fraction] 43.6 % Normal 40.0-52.0 [facility] ([place]) Comment on above: Performed By: #### A SAL, CMP, CBC, MDW, ADIFF, MORPH, GFR, ALC #### [facility] [address] [place], [place] [address] Hgb 14.8 G/dL Normal 13.0-17.5 [facility] ([place]) Comment on above: Performed By: #### A SAL, CMP, CBC, MDW, ADIFF, MORPH, GFR, ALC #### [facility] [address] [place], [place] [address] MCH (RBC) [Entitic mass] 32.0 pg Normal 27.0-33.0 [facility] ([place]) Comment on above: Performed By: #### A SAL, CMP, CBC, MDW, ADIFF, MORPH, GFR, ALC #### [facility] [address] [place], [place] [address] MCHC 33.9 G/dL Normal 32.0-36.0 [facility] ([place]) Comment on above: Performed By: #### A SAL, CMP, CBC, MDW, ADIFF, MORPH, GFR, ALC #### [facility] [address] [place], [place] [address] MCV (RBC) [Entitic vol] 94.5 fL Normal 81.0-100.0 [facility] ([place]) Comment on above: Performed By: #### A SAL, CMP, CBC, MDW, ADIFF, MORPH, GFR, ALC #### [facility] [address] [place], [place] [address] Platelet 201 10 3/mcL Normal 150-450 [facility] ([place]) Comment on above: Performed By: #### A SAL, CMP, CBC, MDW, ADIFF, MORPH, GFR, ALC #### [facility] [address] [place], [place] [address] Platelet mean volume (Bld) [Entitic vol] 7.7 fL Normal 6.4-10.5 [facility] ([place]) Comment on above: Performed By: #### A SAL, CMP, CBC, MDW, ADIFF, MORPH, GFR, ALC #### [facility] [address] [place], [place] [address] RBC 4.62 10 6/mcL Normal 4.50-6.00 [facility] ([place]) Comment on above: Performed By: #### A SAL, CMP, CBC, MDW, ADIFF, MORPH, GFR, ALC #### [facility] [address] [place], [place] [address] WBC 7.0 10 3/mcL Normal 4.5-10.8 [facility] ([place]) Comment on above: Performed By: #### A SAL, CMP, CBC, MDW, ADIFF, MORPH, GFR, ALC #### [facility] [address] [place], [place] [address] CMPon 09-21-2023 Albumin Level 4.5 G/dL Normal 3.5-5.0 [facility] ([place]) Comment on above: Performed By: #### A CETA, DG #### [facility] [place], [place] [address] Albumin/Globulin [Mass ratio] 2.0 {ratio} Normal 1.1-2.5 [facility] ([place]) Comment on above: Performed By: #### A CETA, DG #### [facility] [address] [place], [place] [address] ALP [Catalytic activity/Vol] 62 U/L Normal 40-135 [facility] ([place]) Comment on above: Performed By: #### A CETA, DG #### [facility] [address] [place], [place] [address] ALT [Catalytic activity/Vol] 23 U/L Normal 16-63 [facility] ([place]) Comment on above: Performed By: #### A CETA, DG #### [address] [place], [place] [address] AST [Catalytic activity/Vol] 14 U/L Normal 10-40 [facility] ([place]) Comment on above: Performed By: #### A CETA, DG #### [address] [place], [place] [address] Bili Total 0.3 mg/dL Normal 0.2-1.0 [facility] ([place]) Comment on above: Result Comment: Use of this assay is not recommended for patients undergoing treatment with eltrombopag due to the potential for falsely elevated results. Performed By: #### A CETCarrie, DG #### Melony [address] [place], [place] [address] BUN/Creatinine Ratio 9 ratio Normal 7-27 [facility] ([place]) Comment on above: Performed By: #### A CETA, DG #### [address] [place], [place] [address] Calcium [Mass/Vol] 9.6 mg/dL Normal 8.4-10.2 [facility] ([place]) Comment on above: Performed By: #### A CETCarrie, DG #### [address] [place], [place] [address] Chloride [Moles/Vol] 104 mmol/L Normal 98-107 [facility] ([place]) Comment on above: Performed By: #### A CETA, DG #### [address] [place], [place] [address] CO2 [Moles/Vol] 33 mmol/L High 22-29 [facility] ([place]) Comment on above: Performed By: #### A CETCarrie, DG #### [address] [place], [place] [address] Creatinine [Mass/Vol] 1.17 mg/dL Normal 0.70-1.30 [facility] ([place]) Comment on above: Performed By: #### A CETA, DG #### [address] [place], [place] [address] Electrolyte Balance 5.0 mEq/L Normal 4.0-15.0 [facility] ([place]) Comment on above: Performed By: #### A CETA, DG #### [facility] [address] [place], [place] [address] Globulin 2.2 G/dL Normal [facility] ([place]) Comment on above: Performed By: #### A CETA, DG #### [facility] [address] [place], [place] [address] Glucose [Mass/Vol] 79 mg/dL Normal 70-105 [facility] ([place]) Comment on above: Performed By: #### A CETA, DG #### [facility] [address] [place], [place] [address] Potassium [Moles/Vol] 3.8 mmol/L Normal 3.5-5.1 [facility] ([place]) Comment on above: Performed By: #### A CETA, DG #### [facility] [address] [place], [place] [address] Sodium [Moles/Vol] 142 mmol/L Normal 136-145 [facility] ([place]) Comment on above: Performed By: #### A CETA, DG #### [facility] [address] [place], [place] [address] Total Protein 6.7 G/dL Normal 6.4-8.2 [facility] ([place]) Comment on above: Performed By: #### A CETA, DG #### [facility] [address] [place], [place] [address] Urea nitrogen [Mass/Vol] 11 mg/dL Normal 7-18 [facility] ([place]) Comment on above: Performed By: #### A CETA, DG #### [facility] [address] [place], [place] [address] COVPCRon 09-21-2023 SARS-CoV-2 (COVID-19) RNA TIMBO+probe Ql (Unsp spec) Negative Normal Negative [facility] ([place]) Comment on above: Result Comment: This test has been authorized by FDA under an EUA for use by authorized laboratories and has not been FDA cleared or approved. Results from the Xpert Xpress SARS-CoV-2/Flu/RSV or Xpert Xpress SARS-CoV-2 only test should be correlated with the clinical history, epidemiological data, and other data available to the clinician evaluating the patient. Performance of the Xpert Xpress SARS-CoV-2/Flu/RSV or Xpert Xpress SARS-CoV-2 only test has only been established in nasopharyngeal swab specimens. Erroneous test results might occur from improper specimen collection; failure to follow the recommended sample collection, handling, and storage procedures; technical error; or sample mix-up.False negative results may occur if virus is present at levels below the analytical limit of detection. Viral nucleic acid may persist in vivo, independent of virus viability. Detection of analyte target(s) does not imply that the corresponding virus(es) are infectious or are the causative agents for clinical symptoms.Recent patient exposure to FluMist or other live attenuated influenza vaccines may cause inaccurate positive results. Performed By: #### C OVPCR #### [address] [place], [place] [address] SALon 09-21-2023 Salicylate Level 1.6 mg/dL Low 2.8-20.0 [facility] ([place]) Comment on above: Performed By: #### A CETA, DG #### [facility] [place], [place] [address] UDRUGon 09-21-2023 Amphetamine (u) Negative Normal Negative [facility] ([place]) Comment on above: Performed By: #### U DRUG #### [address] [place], [place] [address] Barbiturate (u) Negative Normal Negative [facility] ([place]) Comment on above: Performed By: #### U DRUG #### [address] [place], [place] [address] Benzodiazepine (u) Negative Normal Negative [facility] ([place]) Comment on above: Performed By: #### U DRUG #### [address] [place], [place] [address] Cannabinoid (u) Positive Abnormal Negative [facility] ([place]) Comment on above: Performed By: #### U DRUG #### [address] [place], [place] [address] Cocaine Ql (U) Negative Normal Negative [facility] ([place]) Comment on above: Performed By: #### U DRUG #### [facility] [place], [place] [address] Methadone Ql (U) Negative Normal Negative [facility] ([place]) Comment on above: Performed By: #### U DRUG #### [address] [place], [place] [address] Opiate (u) Negative Normal Negative [facility] ([place]) Comment on above: Performed By: #### U DRUG #### [facility] [address] [place], [place] [address] PCP (u) Negative Normal Negative [facility] ([place]) Comment on above: Performed By: #### U DRUG #### Melony [address] [place], [place] [address] Urine Drugs screened: See Below Normal [facility] ([place]) Comment on above: Performed By: #### U DRUG #### [address] [place], [place] [address] COVID RSV FLU PANELon 2022 FLUAV Ag IA Ql (Unsp spec) Negative [facility] Comment on above: Order Comment: Use r brennen, foam, polyester or flocked swabs to collect a nasopharyngeal specimen. After collection, fold over the open end of the collection sleeve and seal with patient lab label, double bag in biohazard bag, and transport to the lab ELIZABETH, no later than 60 minutes from collection. Collection must be done while wearing N-95 mask, eye protection, gown and gloves. Use karl, foam, polyester or flocked swabs to collect a This order code is for the COVID/Flu/RSV combo testing. Performed By: #### C RFP #### [address] [address] FLUBV Ab IA Ql (S) Negative [facility] Comment on above: Order Comment: Use r brennen, foam, polyester or flocked swabs to collect a nasopharyngeal specimen. After collection, fold over the open end of the collection sleeve and seal with patient lab label, double bag in biohazard bag, and transport to the lab ELIZABETH, no later than 60 minutes from collection. Collection must be done while wearing N-95 mask, eye protection, gown and gloves. Use karl, foam, polyester or flocked swabs to collect a This order code is for the COVID/Flu/RSV combo testing. Performed By: #### C RFP #### [address] [address] RSV BY PCR Negative [facility] Comment on above: Order Comment: Use r brennen, foam, polyester or flocked swabs to collect a nasopharyngeal specimen. After collection, fold over the open end of the collection sleeve and seal with patient lab label, double bag in biohazard bag, and transport to the lab ELIZABETH, no later than 60 minutes from collection. Collection must be done while wearing N-95 mask, eye protection, gown and gloves. Use karl, foam, polyester or flocked swabs to collect a This order code is for the COVID/Flu/RSV combo testing. Performed By: #### C RFP #### [address] [address] SARS-CoV-2 (COVID-19) RNA TIMBO+probe Ql (Resp) Negative [facility] Comment on above: Order Comment: Use r brennen, foam, polyester or flocked swabs to collect a nasopharyngeal specimen. After collection, fold over the open end of the collection sleeve and seal with patient lab label, double bag in biohazard bag, and transport to the lab ELIZABETH, no later than 60 minutes from collection. Collection must be done while wearing N-95 mask, eye protection, gown and gloves. Use karl, foam, polyester or flocked swabs to collect a This order code is for the COVID/Flu/RSV combo testing. Performed By: #### C RFP #### [address] [address] RESPIRATORY PANEL (COVID, [place] U, RSV)on 06-30-2023 FLUAV Ag IA Ql (Unsp spec) Negative [facility] FLUBV Ab IA Ql (S) Negative [facility] Respiratory Syncytial Virus (RSV) Negative [facility] SARS-CoV-2 (COVID-19) RNA TIMBO+probe Ql (Resp) Negative [facility] SARS-CoV-2 (COVID-19) RNA TIMBO+probe Ql (Unsp spec) This order code is for the COVID/Flu/RSV combo testing. [facility] - [address] [place] [address] POCT MOLECULAR STREP Aon S. pyogenes Ag Ql (Throat) Negative [facility] Work Phone: [facility] Work Phone: Electrocardiogram, 12-leadon 01-16-2023 Atrial Rate [address] [facility] P Ramsay [address] [facility] P-R Interval [address] [facility] Q-T Interval [address] [facility] QRS Duration [address] [facility] QTC Calculation (Bezet) [address] [facility] R Ramsay [address] [facility] T Ramsay [address] [facility] Ventricular Rate 64 BPM [facility] Normal sinus rhythm with sinus arrhythmia Normal ECG Confirmed by Ellyn Blake MD ([id number]) on 01/16/2023 1:34:40 PM [facility] CBC Auto Differentialon Basophils (Bld) [#/Vol] 0.05 10*3/uL [facility] Basophils/100 WBC (Bld) 0.9 % [facility] Eosinophils (Bld) [#/Vol] 0.05 10*3/uL [facility] Eosinophils/100 WBC (Bld) 0.9 % [facility] Erythrocyte distribution width (RBC) [Entitic vol] 12.9 % 11.6 - 14.8 % [facility] Hematocrit (Bld) [Volume fraction] 38.4 % Low 41.0 - 53.0 % [facility] Hemoglobin (Bld) [Mass/Vol] 13.0 g/dL Low 13.5 - 17.5 g/dL [facility] Immature granulocytes (Bld) [#/Vol] 0.02 10*3/uL [facility] Immature granulocytes/100 WBC (Bld) 0.30 % [facility] Comment on above: The IG parameter is the percentage of metamyelocytes, myelocytes and promyelocytes. An immature granulocyte count (IG) of 1% or more suggests the possibility of infection, an IG count of 3% is very likely related to an infection. Interpretation and review of laboratory results Abnormal [facility] Lymphocytes (Bld) [#/Vol] 2.27 10*3/uL [facility] Lymphocytes/100 WBC (Bld) 39.3 % [facility] MCH (RBC) [Entitic mass] 31.9 pg 26.0 - 34.[address] [facility] MCHC (RBC) [Mass/Vol] 33.9 g/dL 31.0 - 37.0 g/dL [facility] MCV (RBC) [Entitic vol] 94.3 fL 80.0 - 100.0 fL [facility] Monocytes (Bld) [#/Vol] 0.49 10*3/uL [facility] Monocytes/100 WBC (Bld) 8.5 % [facility] Neutrophils (Bld) [#/Vol] 2.89 10*3/uL [facility] Neutrophils/100 WBC (Bld) 50.1 % [facility] Nucleated RBC (Bld) [#/Vol] 0.00 10*3/uL [facility] Nucleated RBC/100 WBC (Bld) [Ratio] 0.0 % [facility] Platelet mean volume (Bld) [Entitic vol] 9.9 fL 9.4 - 12.[address] [facility] Platelets (Bld) [#/Vol] 156 10*3/uL [facility] RBC (Bld) [#/Vol] 4.07 10*6/uL Low [facility] WBC (Bld) [#/Vol] 5.77 10*3/uL [facility] Comprehensive metabolic 2000 panelon 01-14-2023 Albumin [Mass/Vol] 3.9 g/dL 3.2 - 5.2 g/dL [facility] ALP [Catalytic activity/Vol] 52 U/L Low 75 - 270 U/L [facility] ALT [Catalytic activity/Vol] 16 U/L 14 - 65 U/L [facility] Anion gap [Moles/Vol] 7 mmol/L Low 10 - 20 mmol/L [facility] AST [Catalytic activity/Vol] 8 U/L 0 - 45 U/L [facility] Bilirubin [Mass/Vol] 1.2 mg/dL 0.0 - 1 .3 mg/dL [facility] Calcium [Mass/Vol] 9.4 mg/dL 8.4 - 10. 2 mg/dL [facility] Chloride [Moles/Vol] 111 mmol/L High 98 - 10 8 mmol/L [facility] Creatinine [Mass/Vol] 0.88 mg/dL 0.50 - 1.30 mg/dL [facility] GFR/1.73 sq M.predicted CKD-EPI (S/P/Bld) [Vol rate/Area] 126 - PINF [facility] Comment on above: Estimated GFR was ca lculated using the 2020 CKD-EPI creatinine equation. Glucose [Mass/Vol] 90 mg/dL 65 - 99 mg/dL [facility] HCO3 [Moles/Vol] 30 mmol/L 21 - 32 mmol/L [facility] Interpretation and review of laboratory results Abnormal [facility] Potassium [Moles/Vol] 3.5 mmol/L 3.5 - 5.1 mmol/L [facility] Protein [Mass/Vol] 6.6 g/dL 6.0 - 8.0 g/dL [facility] Sodium [Moles/Vol] 144 mmol/L 135 - 145 mmol/L [facility] Urea nitrogen [Mass/Vol] 13 mg/dL 8 - 25 mg/dL [facility] Urea nitrogen/Creatinine [Mass ratio] 14.8 mg/mg 10.0 - 20.0 [facility] Laborator y Services has implemented the eGFR calculation approach that does not have a coefficient for race that conforms to the NKF-ASN Task Force Recommendations. [facility] Lipid 1996 panelon 3 Cholesterol [Mass/Vol] 103 mg/dL 100 - 199 mg/dL [facility] Comment on above: National Cholesterol Education Program Guidelines: Cholesterol Desirable: <200 mg/dL Borderline High: 200-239 mg/dL High: greater than or equal to 240 mg/dL Cholesterol in HDL [Mass/Vol] 48 mg/dL 40 - 59 mg/dL [facility] Comment on above: National Cholesterol Education Program Guidelines: HDL Cholesterol Low: <40 mg/dL Near Optimal: 40-59 mg/dL High: greater than or equal to 60 mg/dL Cholesterol in LDL [Mass/Vol] 37 mg/dL 10 - 130 mg/dL [facility] Comment on above: National Cholesterol Education Program Guidelines: LDL Cholesterol Optimal: <100 mg/dL Near Optimal/above Optimal: 100-129 mg/dL Borderline High: 130-159 mg/dL High: 160-189 mg/dL Very High: greater than or equal to 190 mg/dL Cholesterol non HDL [Mass/Vol] 55 mg/dL [facility] Comment on above: National Cholesterol Education Program Guidelines: NON HDL Cholesterol Desirable: <130 mg/dL Borderline High: 130-159 mg/dL High: 160-189 mg/dL Very High: > or = 190 mg/dL Cholesterol.total/Ch olesterol in HDL [Mass ratio] 2.1 {ratio} ratio [facility] Comment on above: Males Cholesterol/HD L Ratio: Average risk: 5.0 1/2 average risk: 3.4 2 x average risk: 9.6 Triglyceride [Mass/Vol] 89 mg/dL 30 - 150 mg/dL [facility] Comment on above: National Cholesterol Education Program Guidelines: Triglyceride Normal: <150 mg/dL Borderline High: 150-199 mg/dL High: 200-499 mg/dL Very High: greater than or equal to 500 mg/dL No Panel Informationon 01-14 [facility] TSH DL <= 0.005 mIU/L Qnon 0 01-14-2023 Interpretation and review of laboratory results Normal [facility] TSH Qn 0.50 m[IU]/L [facility] Alcohol, Medicalon Ethanol [Mass/Vol] mg/dL NINF - 10 .00 mg/dL [facility] Comment on above: Alcohol cutoff: <10. 00 mg/dL = None Detected Ethanol [Mass/Vol]on 023 Interpretation and review of laboratory results Normal [facility] Lavender Topon 01-13-2023 Extra Tube Hold for add-ons. [facility] Comment on above: Auto resulted. [facility] No Panel Informationon 01-13 Extra Tube Hold for add-ons. [facility] Comment on above: Auto resulted. [facility] Urine Drug Screenon 01-14-20 23 Amphetamines Ql (U) Not detected None Detected [facility] Comment on above: Urine Amphetamine Cu toff: < 1000 ng/mL = None Detected Barbiturates Screen Ql (U) Not detected None Detected [facility] Comment on above: Urine Barbiturates C utoff: < 200 ng/mL = None Detected Benzodiazepines Ql (U) Not detected None Detected [facility] Comment on above: Urine Benzodiazepine Cutoff: < 200 ng/mL = None Detected Buprenorphine Ql (U) Not detected None Detected [facility] Comment on above: Urine Buprenorphine Cutoff: < 5 ng/mL = None Detected Cannabinoids Screen Ql (U) Positive Abnormal None Detected [facility] Comment on above: Urine Cannabinoids C utoff: < 50 ng/mL = None Detected Cocaine Ql (U) Not detected None Detected [facility] Comment on above: Urine Cocaine Cutoff : < 300 ng/mL = None Detected fentaNYL+Norfentanyl Screen Ql (U) Not detected None Detected [facility] Comment on above: Urine Fentanyl Cutof f: < 1 ng/mL = None Detected Interpretation and review of laboratory results Abnormal [facility] Methadone Screen Ql (U) Not detected None Detected [facility] Comment on above: Urine Methadone Cuto ff: < 300 ng/mL = None Detected Opiates Screen Ql (U) Not detected None Detected [facility] Comment on above: Urine Opiates Cutoff : < 300 ng/mL = None Detected oxyCODONE Ql (U) Not detected None Detected [facility] Comment on above: Urine Oxycodone Cuto ff: < 100 ng/mL = None Detected Specimen will be kep t for 1 week, if the sample is adequate. Confirmation testing can be initiated by calling the lab within 1 week. Screen results should be used for treatment purposes only. [facility] ED Clinical Summaryon 2021 ED Clinical Summary [facility] [address] [place], [address] Fax: [phone] PERSON INFORMATION Name: ABEL BENITEZ Age: 21 Years : 2000 Sex: Male Language: Tajik PCP: Marital Status: Single Med Service: Emergency Medicine Arrival: 11/07/2021 02:05:39 Visit Reason: Finger pain-swelling; Ring stuck on finger Acuity: 5 LOS: 000 01:39 Address: [address] [place] [address] Diagnosis: Constriction injury of finger Medications Administered: Radiology Orders: Laboratory Orders: Lab and Rad: Laboratory or Other Results This Visit (last charted value for your 11/07/2021 visit) No Laboratory or Other Results This Visit Medications: PROVIDER INFORMATION Provider Role Assigned Unassigned Barbie Syed ED Nurse 11/07/2021 02:18:49 MD Kumar Trishena R ED Provider 11/07/2021 02:26:52 Attending Physician: MD Kumar Trishena R Admit Doc MD Kumar Trishena R Consulting Doc VITALS INFORMATION Vital Sign Triage Latest Temp Oral 98.7 Deg F 98.7 Deg F Temp Temporal Temp Intravascular Temp Axillary Temp Rectal 02 Sat 98 % 98 % Respiratory Rate 16 br/min 16 br/min Peripheral Pulse Rate 100 bpm 100 bpm Apical Heart Rate Blood Pressure 139 mmHg / 71 mmHg 139 mmHg / 71 mmHg Allergies No Known Allergies Immunizations No Immunizations Documented This Visit DISCHARGE INFORMATION Discharge Disposition: Home or Self Care Discharge Location: Discharge Date and Time: 11/07/2021 03:44:00 ED Checkout Date and Time: 11/07/2021 03:44:00 DEPART REASON INCOMPLETE INFORMATION Depart Action Incomplete Reason Vital Signs/Pain Recently assessed Problems No Problems Documented Smoking Status 5-9 cigarettes (between 1/4 to 1/2 pack)/day in last 30 days PATIENT EDUCATION INFORMATION Instructions: Finger Sprain, Adult, [id number] Follow up: With: Address: When: Follow up with primary care provider In 1 week 11/14/2021, only if needed Comments: Return for any worsening or worrisome symptoms Normal [facility] ED Note Physicianon 11-08-19 ED Note Physician Basic Information Chief Complaint pt comes to ed with ring stuck on right 4th finger. pt state he placed the ring on and hour ago and has been trying to get it off for an hour now. alert and oriented x3. ED Assigned Provider/Time Time Seen: MD Kumar Trishena R / 11/07/2021 02:26 History of Present Illness This is a 21-year-old male who was trying on a friend's running when it got stuck onto his right ring finger. He has been trying for the last hour to get the ring off without any success Review of Systems 10 point review review of systems completed: Pertinent positives negatives as stated above otherwise review of systems negative Physical Exam Vitals & Measurements T: 98.7 ??F (Oral) HR: 100 (Peripheral) RR: 16 BP: 139/71 SpO2: 98% HT: 187 cm WT: 100 kg (Dosing) BMI: 28.6 General: [Alert and oriented, well nourished, no acute distress]. Eye: [PERRL, EOMI, normal conjunctiva]. HENT: [Normocephalic, tolerating saliva]. Neck: [Supple, non-tender, trachea midline]. Lungs: [Clear to auscultation, non-labored respiration]. Heart: [Normal rate, regular rhythm, no murmur, gallop or edema]. Abdomen: [Soft, non-tender, non-distended, normal bowel sounds]. Musculoskeletal: [Right ring finger with small metal stainless steel ring on the finger, there is swelling near the ring we are unable to safely remove the ring from the finger]. Skin: [Skin is warm, dry and pink, no rashes or lesions]. Neurologic: [Awake, alert, and oriented X3, CN II-XII intact, strength 5 out of 5 throughout sensation to light touch present and symmetrical]. Psychiatric: [Cooperative, appropriate mood and affect]. Procedure No Qualifying Data No Qualifying Data No Qualifying Data No Qualifying Data Medical Decision Making Differential diagnoses: Suspected foreign body, finger injury, finger ischemia. Finger is warm well perfused we will use ring cutter to remove the ring and continue to monitor closely Assessment/Plan Finger pain-swelling [id number] Final Diagnosis: Ring stuck on finger Problem List/Past Medical History Ongoing No qualifying data Historical No qualifying data Medications Inpatient No active inpatient medications Home No active home medications Allergies No Known Allergies Social History Alcohol Current user Substance Use Never Tobacco Smoking tobacco use: 5-9 cigarettes (between 1/4 to 1/2 pack)/day in last 30 days. Diagnostic Results No qualifying data available. Electronically Signed on 11/07/21 04:35 MD José, Aguilar Shultz [facility] ED Patient Summaryon 022 ED Patient Summary [facility] Emergency Department [address] [place] [address] [phone] Discharge Instructions (Patient) Name:ABEL BENITEZ : 2000 [facility]: [id number] Reason For Visit: Finger pain-swelling Final Diagnosis: Constriction injury of finger Visit Date: 11/07/2021 02:05:39 Address: [address] [place] [address] Primary Care Provider: Name: Phone: Emergency Department Providers:Primary Physician: MD José, Aguilar Shultz [facility] would like to thank you for allowing us to assist you with your healthcare needs. The following includes patient education materials and information regarding your injury/illness. Follow-up Instructions: You were treated today on an emergency basis; it may be gupta to contact your primary care provider to notify them of your visit today. You may have been referred to your regular doctor or a specialist, please follow up as instructed. If your condition worsens or you can't get in to see the doctor, contact the Emergency Department. With: Address: When: Follow up with primary care provider In 1 week 11/14/2021, only if needed Comments: Return for any worsening or worrisome symptoms Patient Education Materials: Finger Sprain, Adult, [id number] Finger Sprain, Adult A finger sprain is a tear or stretch in a ligament in your finger. Ligaments are tissues that connect bones to each other. Follow these instructions at home: If you have a splint: ?? Do not put pressure on any part of the splint until it is fully hardened. This may take many hours. ?? Wear the splint as told by your doctor. Take it off only as told by your doctor. ?? Loosen the splint if your fingers tingle, lose feeling (get numb), or turn cold and blue. ?? Keep the splint clean. ?? If the splint is not waterproof: ? Do not let it get wet. ? Cover it with a watertight covering when you take a bath or a shower. If you have a cast: ?? Do not put pressure on any part of the cast until it is fully hardened. This may take many hours. ?? Do not stick anything inside the cast to scratch your skin. ?? Check the skin around the cast every day. Tell your doctor about any concerns. ?? You may put lotion on dry skin around the edges of the cast. Do not put lotion on the skin under the cast. ?? Keep the cast clean. ?? If the cast is not waterproof: ? Do not let it get wet. ? Cover it with a watertight covering when you take a bath or a shower. Managing pain, stiffness, and swelling ?? If directed, put ice on the injured area: ? If you have a removable splint, take it off as told by your doctor. ? Put ice in a plastic bag. ? Place a towel between your skin and the bag or between your cast and the bag. ? Leave the ice on for 20 minutes, 2?3 times a day. ?? Gently move your fingers often to avoid stiffness and to lessen swelling. ?? Raise (elevate) the injured area above the level of your heart while you are sitting or lying down. Medicines ?? Take [id number] and prescription medicines only as told by your doctor. ?? Do not drive or use heavy machinery while taking prescription pain medicine. General instructions ?? Keep any bandages (dressings) dry until your doctor says they can be taken off. ?? Do exercises as told by your doctor or physical therapist. ?? Do not wear rings on your injured finger. ?? Keep all follow-up visits as told by your doctor. This is important. Get help right away if: ?? Your pain is not helped by medicine. ?? Your bruising or swelling gets worse. ?? Your splint or cast is damaged. ?? You lose feeling in your finger. ?? Your finger turns blue. ?? Your finger feels colder than normal when you touch it. ?? You have a fever. Summary ?? A finger sprain is a tear or stretch in a ligament in your finger. Ligaments are tissues that connect bones to each other. ?? If you have a splint, loosen the splint if your fingers tingle, lose feeling (get numb), or turn cold and blue. ?? Gently move your fingers often to avoid stiffness and to lessen swelling. ?? If directed, put ice on the injured area. This information is not intended to replace advice given to you by your health care provider. Make sure you discuss any questions you have with your health care provider. Document Revised: 06/15/2018 Document Reviewed: 2017 [employer] Patient Education ? 2020 [employer]. Allergy Info: No Known Allergies Medication Information: [facility] ED Physicians provided you with a complete list of medications post discharge, if you have been instructed to stop taking a medication please ensure you also follow up with this information to your Primary Care Physician. Unless otherwise noted, patient will continue to take medications as prescribed prior to the Emergency Room visit (more content not included)... Normal [facility] CNOVon 07-29-2019 CNOV Office Visit (UCWSTR ) ABEL BENITEZ ([id number]) 4 M Date Time Provider Department 07/29/19 3:30 PM NADEGE NAGEL WSTR During your visit today, we recorded the following information about you: Temperature Pulse Respiration Blood pressure 98.1 degrees 101/minute 18/minute 102/70 Weight 94.5 kg Nadege Nagel APRN.BOBBIN DOFFER 07/29/2019 4:27 PM Signed [facility] PATIENT INFO BRONCHITIS OVERVIEW Bronchitis develops when there is swelling and irritation of the bronchi, the large tubes that carry air to the lungs. There are two types of bronchitis: acute (sudden onset) and chronic (long-standing). Acute bronchitis often occurs with a viral infection, such as the common cold, and is sometimes called a chest cold. The most common symptom of acute bronchitis is a nagging cough. Treatment of acute bronchitis usually involves treating the symptoms, such as sore throat and congestion. Antibiotics do not help to eliminate acute bronchitis caused by a virus. Antiviral agents are useful in some cases of acute bronchitis due to influenza, but there are antiviral agents for other forms of viral bronchitis. BRONCHITIS CAUSES Most cases of bronchitis are caused by a viral infection of the upper airways, such as the common cold or the flu. Less commonly, a bacterium such as pertussis (whooping cough) is the cause. BRONCHITIS SYMPTOMS The most common symptoms of acute bronchitis include: ? A persistent cough; this may last 10 to 20 days ? Some people cough up mucus, which may be clear, yellow, or green in color Fever is not common in people with acute bronchitis. However, having a fever can be a sign of another condition, such as the flu or pneumonia. Conditions with similar features ? There are other conditions that have symptoms similar to those of acute bronchitis. ? Chronic cough ? A persistent cough that lasts more than eight weeks is considered a chronic cough, which is discussed in detail elsewhere. ? Chronic bronchitis ? Chronic bronchitis is defined as a cough that occurs on most days of the month for at least three months of the year during two consecutive years. ? Pneumonia ? Signs of pneumonia include fever and a fast heart and breathing rate. ? Postnasal drip ? Postnasal drip occurs when secretions drain from the sinuses into the throat. This can cause the throat to feel irritated, which causes you to feel like you need to clear your throat frequently. Postnasal drip can be caused by the common cold, allergies, sinusitis, or environmental irritants. BRONCHITIS DIAGNOSIS Most people who have a persistent cough after an upper respiratory infection (cold) do not need to see a healthcare provider. Diagnostic testing, such as x-rays, cultures, and blood tests, are not usually needed for people with acute bronchitis. However, testing may be recommended if your diagnosis is not clear based upon your examination or if another condition, such as pneumonia, is suspected. When to seek help ? You should call your healthcare provider if you have any of the following: ? Fever (temperature greater than 100.4? F or 38? C) ? A cough that lasts longer than 10 days ? Chest pain with coughing, difficulty breathing, or coughing up blood ? A barking cough that makes it hard to speak, especially if it persists ? Cough accompanied by unexplained weight loss People who are older than 75 do not always have a fever or other concerning symptoms. If you are over 75 years and you have a persistent cough, you should call your clinician to determine if and when an office visit is recommended. BRONCHITIS TREATMENT Relief of symptoms ? There is no specific treatment for bronchitis, but there are a few treatments available for the common cold. ? A nonsteroidal antiinflammatory drug (ibuprofen, naproxen), aspirin, or acetaminophen (Tylenol?) can help to relieve the pain of a sore throat or headache. ? Pseudoephedrine is a decongestant that can improve nasal congestion. Most drugstores in the [place] carry pseudoephedrine behind the counter, so you must ask for it from the pharmacist (a prescription is not required). Other decongestants, such as phenylephrine, are not as effective as pseudoephedrine. Antihistamines such as diphenhydramine (Benadryl?) may also help, but can cause side effects such as drowsiness and drying of the eyes, nose, and mouth. ? Heated, humidified, air can improve symptoms of nasal congestion and runny nose, and has few to no side effects. ? Cough suppressants such as dextromethorphan may be helpful. Antibiotics ? Antibiotics are NOT helpful for most people with bronchitis since the illness is typically caused by a virus. Antibiotics treat bacterial, not viral infections. Antibiotics may be helpful for some patients with other chronic diseases. Many people request antibiotics in the hopes that it will get rid of the cough, and some people even think that antibiotics have helped on previous occasions. However, there is no benefit of antibiotics for most cases of bronchitis. PREVENTING THE SPREAD OF ILLNESS Hand washing is an essential and highly effective way to prevent the spread of infection. Wet your hands with water and plain soap and rub them together for 15 to 30 seconds. Pay special attention to the fingernails, between the fingers, and the wrists. Rinse your hands thoroughly, and dry with a single use towel. Alcohol-based hand rubs are a good alternative for disinfecting hands if a sink is not available. Spread the hand rub over the entire surface of your hands, fingers, and wrists until dry. You can use hand rubs repeatedly without irritating the skin or losing effectiveness. Hand rubs are available as a liquid or wipe in small, portable sizes that are easy to carry in a pocket or handbag. When a sink is available, you should wash visibly soiled hands with soap and water. Wash your hands before preparing food and eating, and after going to the bathroom, and after coughing, blowing the nose, or sneezing. While it is not always possible to limit contact with people who are ill, avoid touching your eyes, nose, or mouth after direct contact, when possible. In addition, use a tissue to cover your mouth when sneezing or coughing. Throw away used tissues promptly and then wash your hands. Sneezing/coughing into the sleeve of your clothing (at the inner elbow) is another way of containing sprays of saliva and secretions and does not contaminate your hands. Sneezing and coughing without covering your mouth can spread infection to anyone within 6 feet. Nadege Nagel APRN.BOBBIN DOFFER 07/29/2019 4:37 PM Signed Subjective HPI Pt presents with c/o nasal congestion, cough and sore throat x 4 days. Cough became more frequent, moist, nonproductive. Past 2 days has been wheezing at hs during coughing fits. Took Dayquil and Nyquil x several times with minimal improvement. No hx asthma, RAD. Denies fever, chills, myalgias, dyspnea. Did not receive influenza vaccine this season. Review of Systems Constitutional: Negative for chills and fever. HENT: Positive for congestion and sore throat. Negative for ear discharge, ear pain, sinus pain and tinnitus. Respiratory: Positive for cough and wheezing. Negative for sputum production and shortness of breath. Cardiovascular: Negative for chest pain. Skin: Negative for rash. Neurological: Negative for headaches. Objective Physical Exam Constitutional: He is oriented to person, place, and time and well-developed, well-nourished, and in no distress. No distress. HENT: Head: Normocephalic. Right Ear: Hearing, tympanic membrane, external ear and ear canal normal. Left Ear: Hearing, tympanic membrane, external ear and ear canal normal. Nose: Nose normal. Right sinus exhibits no maxillary sinus tenderness and no frontal sinus tenderness. Left sinus exhibits no maxillary sinus tenderness and no frontal sinus tenderness. Mouth/Throat: Uvula is midline, oropharynx is clear and moist and mucous membranes are normal. No oropharyngeal exudate, posterior oropharyngeal edema, posterior oropharyngeal erythema or tonsillar abscesses. Eyes: Pupils are equal, round, and reactive to light. Conjunctivae are normal. Right eye exhibits no discharge. Left eye exhibits no discharge. Neck: Neck supple. Cardiovascular: Normal rate, regular rhythm and normal heart sounds. Exam reveals no gallop and no friction rub. No murmur heard. Pulmonary/Chest: Effort normal and breath sounds normal. No accessory muscle usage. No tachypnea. No respiratory distress. He has no decreased breath sounds (CTA, good air movement throughout, no cough noted during exam.). He has no wheezes. He has no rhonchi. He has no rales. Lymphadenopathy: He has no cervical adenopathy. Neurological: He is alert and oriented to person, place, and time. Skin: Skin is warm. He is not diaphoretic. BP 102/70 Pulse 101 Temp 36.7 ?C (98.1 ?F) (Tympanic) Resp 18 Wt 94.5 kg (208 lb 6.4 oz) SpO2 97% .Patient presents with: Sore Throat: sore thorat, cough and fever x 4 days PAST MEDICAL HISTORY Diagnosis Date - Depression - Disruptive mood dysregulation disorder (HCC) - Otitis media PAST SURGICAL HISTORY Procedure Laterality Date - PAST SURGICAL HISTORY OF 12/2010 teeth extracted x 2 ALLERGIES Patient has no known allergies. MEDICATIONS escitalopram oxalate (LEXAPRO) 10 mg tablet Take 1 tablet by mouth once daily. cloNIDine HCl (CATAPRES) 0.1 mg tablet Take 1 tablet by mouth once daily. ARIPiprazole (ABILIFY) 10 mg tablet Take 10 mg by mouth once daily. Acetaminophen (JR. TYLENOL MELTAWAYS) 160 mg TbDL Take by mouth. predniSONE (DELTASONE) 20 mg tablet Take 2 tablets by mouth once daily for 5 days. Take daily with food. guaiFENesin (MUCINEX) 600 mg 12 hr tablet Take 2 tablets by mouth twice daily. benzonatate (TESSALON PERLES) 100 mg capsule Take 1 capsule by mouth three times daily as needed. albuterol HFA (PROVENTIL HFA, VENTOLIN HFA) 90 mcg/actuation inhaler Inhale 2 Puffs as instructed every 4 hours as needed. Inhalational Spacing Device spcr 1 Device one time only for 1 dose. omeprazole (PRILOSEC) 20 mg capsule Take 1 capsule by mouth as needed. FLUoxetine HCl (PROZAC) 40 mg capsule Take 40 mg by mouth once daily. sertraline (ZOLOFT) 25 mg tablet Take 1 tablet by mouth once daily. FAMILY HISTORY Problem Relation Age of Onset - Allergies Father allergic to shellfish - None Mother Social History Tobacco Use - Smoking status: Never Smoker - Smokeless tobacco: Never Used Substance Use Topics - Alcohol use: Not on file - Drug use: Not on file ASSESSMENT/PLAN: 1. Bronchitis - ICD9: 490, ICD10: J40 (primary diagnosis) - PREDNISONE 20 MG TABLET - MUCINEX 600 MG TABLET, EXTENDED RELEASE - BENZONATATE 100 MG CAPSULE - ALBUTEROL SULFATE HFA 90 MCG/ACTUATION AEROSOL INHALER - INHALATIONAL SPACING DEVICE 2. Sore throat - ICD9: 462, ICD10: J02.9 - Rapid Strep negative in the office today and Throat culture pending - Discussed supportive care treatment with fluids, rest and analgesia. - Contagious dz precautions discussed- including considered contagious until on antibiotics for 24 hours - The patient should follow up in 3-5 days if symptoms persist or worsen - Call back if drooling, increased temperature, symptoms of dehydration and/or still sick in one week - RAPID STREP TEST B/O - GROUP A STREPTOCOCCUS BY PCR The patient is instructed to return or seek emergency treatment if symptoms become worse or with any acute change in condition. The patient verbalizes understanding and is in agreement with plan of care. Nadege Nagel CNP Referring Provider: SELF [[id number]] Allergies As of Date: 07/29/2019 (No Known Allergies) Date Reviewed: 07/29/2019 Reviewed by: Liliana Parkinson LPN - Fully Assessed Reason for Visit: Sore Throat [200] Cmt: sore thorat, cough and fever x 4 days Primary Visit Diagnosis:Bronchitis [J40] Other Visit Diagnosis:Sore throat [J02.9] Order(s):RAPID STREP TEST B/O [[id number]] Order #: [id number] GROUP A STREPTOCOCCUS BY PCR [SQGASPCR] Order #: [id number] predniSONE (DELTASONE) 20 mg tabletTake 2 tablets by mouth once daily for 5 days. Take daily with food.Disp: 10 tabletRfl: 0 guaiFENesin (MUCINEX) 600 mg 12 hr tabletTake 2 tablets by mouth twice daily.Disp: 30 tabletRfl: 0 benzonatate (TESSALON PERLES) 100 mg capsuleTake 1 capsule by mouth three times daily as needed.Disp: 40 capsuleRfl: 0 albuterol HFA (PROVENTIL HFA, VENTOLIN HFA) 90 mcg/actuation inhalerInhale 2 Puffs as instructed every 4 hours as needed.Disp: 1 InhalerRfl: 0 Inhalational Spacing Device spcr1 Device one time only for 1 dose.Disp: 1 EachRfl: 0 Prescriptions as of 07/29/2019 Sig: ESCITALOPRAM 10 MG TABLET Take 1 tablet by mouth once d* CLONIDINE HCL 0.1 MG TABLET Take 1 tablet by mouth once d* ARIPIPRAZOLE 10 MG TABLET Take 10 mg by mouth once rc* ACETAMINOPHEN 160 MG DISINTEG* Take by mouth. PREDNISONE 20 MG TABLET Take 2 tablets by mouth once * MUCINEX 600 MG TABLET, EXTEND* Take 2 tablets by mouth twice* BENZONATATE 100 MG CAPSULE Take 1 capsule by mouth three* ALBUTEROL SULFATE HFA 90 MCG/* Inhale 2 Puffs as instructed * INHALATIONAL SPACING DEVICE 1 Device one time only for 1 * OMEPRAZOLE 20 MG CAPSULE,SEBASTIAN* Take 1 capsule by mouth as ne* FLUOXETINE 40 MG CAPSULE Take 40 mg by mouth once rc* * SERTRALINE 25 MG TABLET Take 1 tablet by mouth once d* Medication notes this encounter OMEPRAZOLE 20 MG CAPSULE,DELAYED RELEASE >> Liliana Parkinson [employer] 07/29/2019 3:54 PM >> LILIANA PARKINSON LPN MonJul 29, 2019 3:54 PM PRN Problem List As Of Date 07/29/2019 Noted Resolved Fracture of medial malleolus, left, closed [S82*03/26/2012 Other instructions from your clinician: [facility] PATIENT INFO BRONCHITIS OVERVIEW Bronchitis develops when there is swelling and irritation of the bronchi, the large tubes that carry air to the lungs. There are two types of bronchitis: acute (sudden onset) and chronic (long-standing). Acute bronchitis often occurs with a viral infection, such as the common cold, and is sometimes called a chest cold. The most common symptom of acute bronchitis is a nagging cough. Treatment of acute bronchitis usually involves treating the symptoms, such as sore throat and congestion. Antibiotics do not help to eliminate acute bronchitis caused by a virus. Antiviral agents are useful in some cases of acute bronchitis due to influenza, but there are antiviral agents for other forms of viral bronchitis. BRONCHITIS CAUSES Most cases of bronchitis are caused by a viral infection of the upper airways, such as the common cold or the flu. Less commonly, a bacterium such as pertussis (whooping cough) is the cause. BRONCHITIS SYMPTOMS The most common symptoms of acute bronchitis include: ? A persistent cough; this may last 10 to 20 days ? Some people cough up mucus, which may be clear, yellow, or green in color Fever is not common in people with acute bronchitis. However, having a fever can be a sign of another condition, such as the flu or pneumonia. Conditions with similar features ? There are other conditions that have symptoms similar to those of acute bronchitis. ? Chronic cough ? A persistent cough that lasts more than eight weeks is considered a chronic cough, which is discussed in detail elsewhere. ? Chronic bronchitis ? Chronic bronchitis is defined as a cough that occurs on most days of the month for at least three months of the year during two consecutive years. ? Pneumonia ? Signs of pneumonia include fever and a fast heart and breathing rate. ? Postnasal drip ? Postnasal drip occurs when secretions drain from the sinuses into the throat. This can cause the throat to feel irritated, which causes you to feel like you need to clear your throat frequently. Postnasal drip can be caused by the common cold, allergies, sinusitis, or environmental irritants. BRONCHITIS DIAGNOSIS Most people who have a persistent cough after an upper respiratory infection (cold) do not need to see a healthcare provider. Diagnostic testing, such as x-rays, cultures, and blood tests, are not usually needed for people with acute bronchitis. However, testing may be recommended if your diagnosis is not clear based upon your examination or if another condition, such as pneumonia, is suspected. When to seek help ? You should call your healthcare provider if you have any of the following: ? Fever (temperature greater than 100.4? F or 38? C) ? A cough that lasts longer than 10 days ? Chest pain with coughing, difficulty breathing, or coughing up blood ? A barking cough that makes it hard to speak, especially if it persists ? Cough accompanied by unexplained weight loss People who are older than 75 do not always have a fever or other concerning symptoms. If you are over 75 years and you have a persistent cough, you should call your clinician to determine if and when an office visit is recommended. BRONCHITIS TREATMENT Relief of symptoms ? There is no specific treatment for bronchitis, but there are a few treatments available for the common cold. ? A nonsteroidal antiinflammatory drug (ibuprofen, naproxen), aspirin, or acetaminophen (Tylenol?) can help to relieve the pain of a sore throat or headache. ? Pseudoephedrine is a decongestant that can improve nasal congestion. Most drugstores in the [place] carry pseudoephedrine behind the counter, so you must ask for it from the pharmacist (a prescription is not required). Other decongestants, such as phenylephrine, are not as effective as pseudoephedrine. Antihistamines such as diphenhydramine (Benadryl?) may also help, but can cause side effects such as drowsiness and drying of the eyes, nose, and mouth. ? Heated, humidified, air can improve symptoms of nasal congestion and runny nose, and has few to no side effects. ? Cough suppressants such as dextromethorphan may be helpful. Antibiotics ? Antibiotics are NOT helpful for most people with bronchitis since the illness is typically caused by a virus. Antibiotics treat bacterial, not viral infections. Antibiotics may be helpful for some patients with other chronic diseases. Many people request antibiotics in the hopes that it will get rid of the cough, and some people even think that antibiotics have helped on previous occasions. However, there is no benefit of antibiotics for most cases of bronchitis. PREVENTING THE SPREAD OF ILLNESS Hand washing is an essential and highly effective way to prevent the spread of infection. Wet your hands with water and plain soap and rub them together for 15 to 30 seconds. Pay special attention to the fingernails, between the fingers, and the wrists. Rinse your hands thoroughly, and dry with a single use towel. Alcohol-based hand rubs are a good alternative for disinfecting hands if a sink is not available. Spread the hand rub over the entire surface of your hands, fingers, and wrists until dry. You can use hand rubs repeatedly without irritating the skin or losing effectiveness. Hand rubs are available as a liquid or wipe in small, portable sizes that are easy to carry in a pocket or handbag. When a sink is available, you should wash visibly soiled hands with soap and water. Wash your hands before preparing food and eating, and after going to the bathroom, and after coughing, blowing the nose, or sneezing. While it is not always possible to limit contact with people who are ill, avoid touching your eyes, nose, or mouth after direct contact, when possible. In addition, use a tissue to cover your mouth when sneezing or coughing. Throw away used tissues promptly and then wash your hands. Sneezing/coughing into the sleeve of your clothing (at the inner elbow) is another way of containing sprays of saliva and secretions and does not contaminate your hands. Sneezing and coughing without covering your mouth can spread infection to anyone within 6 feet. Prescriptions ordered this encounter Disp Refills Start End PREDNISONE 20 MG TABLET 10 t* 0 07/29/2019 08/03/2019 Route: ORAL Sig: Take 2 tablets by mouth once daily for 5 days. Take daily with food. MUCINEX 600 MG TABLET, EXTENDED RELE* 30 t* 0 07/29/2019 Route: ORAL Sig: Take 2 tablets by mouth twice daily. BENZONATATE 100 MG CAPSULE 40 c* 0 07/29/2019 Route: ORAL Sig: Take 1 capsule by mouth three times daily as needed. ALBUTEROL SULFATE HFA 90 MCG/ACTUATI* 1 In* 0 07/29/2019 Route: INHALATION Sig: Inhale 2 Puffs as instructed every 4 hours as needed. INHALATIONAL SPACING DEVICE 1 Ea* 0 07/29/2019 07/29/2019 Route: Misc Si Device one time only for 1 dose. Letter Text Encounter Status:Closed by NADEGE NAGEL CNP on 07/29/19 Normal [facility] Group A Strep by PCRon 07-29 GAS Specimen Source Throat Swab Normal [facility] Comment on above: Performed By: #### G ASPCR #### [facility] [address] [place], [place] [address] Group A Strep PCR Negative Normal [facility] Comment on above: Result Comment: This test was developed and its performance characteristics determined by [facility]'s [facility] [place] ( [facility]). It has not been cleared or approved by the FDA. [facility] is regulated under CLIA as qualified to perform high complexity testing. This test is used for clinical purposes. It should not be regarded as investigational or for research. Performed By: #### G ASPCR #### [facility] [address] [place], [place] [address] PROGRESSon 07-29-2019 PROGRESS HNO ID: [id number] Author: Nadege Nagel Service: ? Author Type: Nurse Practitioner Type: Progress Notes Filed: 07/29/2019 4:37 PM Note Text: Subjective HPI Pt presents with c/o nasal congestion, cough and sore throat x 4 days. Cough became more frequent, moist, nonproductive. Past 2 days has been wheezing at hs during coughing fits. Took Dayquil and Nyquil x several times with minimal improvement. No hx asthma, RAD. Denies fever, chills, myalgias, dyspnea. Did not receive influenza vaccine this season. Review of Systems Constitutional: Negative for chills and fever. HENT: Positive for congestion and sore throat. Negative for ear discharge, ear pain, sinus pain and tinnitus. Respiratory: Positive for cough and wheezing. Negative for sputum production and shortness of breath. Cardiovascular: Negative for chest pain. Skin: Negative for rash. Neurological: Negative for headaches. Objective Physical Exam Constitutional: He is oriented to person, place, and time and well-developed, well-nourished, and in no distress. No distress. HENT: Head: Normocephalic. Right Ear: Hearing, tympanic membrane, external ear and ear canal normal. Left Ear: Hearing, tympanic membrane, external ear and ear canal normal. Nose: Nose normal. Right sinus exhibits no maxillary sinus tenderness and no frontal sinus tenderness. Left sinus exhibits no maxillary sinus tenderness and no frontal sinus tenderness. Mouth/Throat: Uvula is midline, oropharynx is clear and moist and mucous membranes are normal. No oropharyngeal exudate, posterior oropharyngeal edema, posterior oropharyngeal erythema or tonsillar abscesses. Eyes: Pupils are equal, round, and reactive to light. Conjunctivae are normal. Right eye exhibits no discharge. Left eye exhibits no discharge. Neck: Neck supple. Cardiovascular: Normal rate, regular rhythm and normal heart sounds. Exam reveals no gallop and no friction rub. No murmur heard. Pulmonary/Chest: Effort normal and breath sounds normal. No accessory muscle usage. No tachypnea. No respiratory distress. He has no decreased breath sounds (CTA, good air movement throughout, no cough noted during exam.). He has no wheezes. He has no rhonchi. He has no rales. Lymphadenopathy: He has no cervical adenopathy. Neurological: He is alert and oriented to person, place, and time. Skin: Skin is warm. He is not diaphoretic. BP 102/70 Pulse 101 Temp 36.7 ?C (98.1 ?F) (Tympanic) Resp 18 Wt 94.5 kg (208 lb 6.4 oz) SpO2 97% .Patient presents with: Sore Throat: sore thorat, cough and fever x 4 days PAST MEDICAL HISTORY Diagnosis Date - Depression - Disruptive mood dysregulation disorder (HCC) - Otitis media PAST SURGICAL HISTORY Procedure Laterality Date - PAST SURGICAL HISTORY OF 12/2010 teeth extracted x 2 ALLERGIES Patient has no known allergies. MEDICATIONS escitalopram oxalate (LEXAPRO) 10 mg tablet Take 1 tablet by mouth once daily. cloNIDine HCl (CATAPRES) 0.1 mg tablet Take 1 tablet by mouth once daily. ARIPiprazole (ABILIFY) 10 mg tablet Take 10 mg by mouth once daily. Acetaminophen (JR. TYLENOL MELTAWAYS) 160 mg TbDL Take by mouth. predniSONE (DELTASONE) 20 mg tablet Take 2 tablets by mouth once daily for 5 days. Take daily with food. guaiFENesin (MUCINEX) 600 mg 12 hr tablet Take 2 tablets by mouth twice daily. benzonatate (TESSALON PERLES) 100 mg capsule Take 1 capsule by mouth three times daily as needed. albuterol HFA (PROVENTIL HFA, VENTOLIN HFA) 90 mcg/actuation inhaler Inhale 2 Puffs as instructed every 4 hours as needed. Inhalational Spacing Device spcr 1 Device one time only for 1 dose. omeprazole (PRILOSEC) 20 mg capsule Take 1 capsule by mouth as needed. FLUoxetine HCl (PROZAC) 40 mg capsule Take 40 mg by mouth once daily. sertraline (ZOLOFT) 25 mg tablet Take 1 tablet by mouth once daily. FAMILY HISTORY Problem Relation Age of Onset - Allergies Father allergic to shellfish - None Mother Social History Tobacco Use - Smoking status: Never Smoker - Smokeless tobacco: Never Used Substance Use Topics - Alcohol use: Not on file - Drug use: Not on file ASSESSMENT/PLAN: 1. Bronchitis - ICD9: 490, ICD10: J40 (primary diagnosis) - PREDNISONE 20 MG TABLET - MUCINEX 600 MG TABLET, EXTENDED RELEASE - BENZONATATE 100 MG CAPSULE - ALBUTEROL SULFATE HFA 90 MCG/ACTUATION AEROSOL INHALER - INHALATIONAL SPACING DEVICE 2. Sore throat - ICD9: 462, ICD10: J02.9 - Rapid Strep negative in the office today and Throat culture pending - Discussed supportive care treatment with fluids, rest and analgesia. - Contagious dz precautions discussed- including considered contagious until on antibiotics for 24 hours - The patient should follow up in 3-5 days if symptoms persist or worsen - Call back if drooling, increased temperature, symptoms of dehydration and/or still sick in one week - RAPID STREP TEST B/O - GROUP A STREPTOCOCCUS BY PCR The patient is instructed to return or seek emergency treatment if symptoms become worse or with any acute change in condition. The patient verbalizes understanding and is in agreement with plan of care. Nadege Nagel CNP Normal [facility] CNOVon 05-02-2019 CNOV Office Visit ([facility] ) ABEL BENITEZ ([id number]) 4 M Date Time Provider Department 05/02/19 2:00 PM SHAI GUERRERO [facility] During your visit today, we recorded the following information about you: Temperature Pulse Respiration Blood pressure 98.3 degrees 71/minute 16/minute 104/68 Weight 94.5 kg Shai Guerrero MD 05/02/2019 2:29 PM Signed Patient presents with: Testicular Pain: with swelling x 1 week HPI: Testicular pain: Duration: bothering him for a month or 2. Much worse the last week Location: scrotum Character: Swollen painful and itchy rash Relieving: Neosporin last night helped PAST MEDICAL HISTORY Diagnosis Date - Depression - Disruptive mood dysregulation disorder (HCC) - Otitis media PAST SURGICAL HISTORY Procedure Laterality Date - PAST SURGICAL HISTORY OF 12/2010 teeth extracted x 2 MEDICATIONS: escitalopram oxalate (LEXAPRO) 10 mg tablet Take 1 tablet by mouth once daily. omeprazole (PRILOSEC) 20 mg capsule Take 1 capsule by mouth as needed. cloNIDine HCl (CATAPRES) 0.1 mg tablet Take 1 tablet by mouth once daily. ARIPiprazole (ABILIFY) 10 mg tablet Take 10 mg by mouth once daily. Acetaminophen (JR. TYLENOL MELTAWAYS) 160 mg TbDL Take by mouth. FLUoxetine HCl (PROZAC) 40 mg capsule Take 40 mg by mouth once daily. sertraline (ZOLOFT) 25 mg tablet Take 1 tablet by mouth once daily. ALLERGIES: ALLERGIES No Known Allergies VITALS: BP 104/68 Pulse 71 Temp 36.8 ?C (98.3 ?F) (Left Tympanic) Resp 16 Wt 94.5 kg (208 lb 6.4 oz) SpO2 98% PE: Pleasant, in no acute distress. Accompanied by his mother. : normal external male genitalia. Erythema of the scrotum, inguinal creases and perigenital thighs. Bilaterally descended testicles are non-tender. ASSESSMENT/PLAN: 1. Tinea cruris - ICD9: 110.3, ICD10: B35.6 He may use antifungal cream initially since it may be more soothing. - NYSTATIN 100,000 UNIT/GRAM TOPICAL POWDER Shai Guerrero MD Referring Provider: SELF [200] Allergies As of Date: 05/02/2019 (No Known Allergies) Date Reviewed: 05/02/2019 Reviewed by: Leisa Oates Ma - Fully Assessed Reason for Visit: Testicular Pain [823] Cmt: with swelling x 1 week Primary Visit Diagnosis:Tinea cruris [B35.6] Order(s):nystatin (NYSTOP) powderApply 1 application to affected area twice daily for 14 days.Disp: 30 gRfl: 0 Prescriptions as of 05/02/2019 Sig: ESCITALOPRAM 10 MG TABLET Take 1 tablet by mouth once d* OMEPRAZOLE 20 MG CAPSULE,SEBASTIAN* Take 1 capsule by mouth as ne* CLONIDINE HCL 0.1 MG TABLET Take 1 tablet by mouth once d* ARIPIPRAZOLE 10 MG TABLET Take 10 mg by mouth once rc* ACETAMINOPHEN 160 MG DISINTEG* Take by mouth. NYSTATIN 100,000 UNIT/GRAM TO* Apply 1 application to affect* FLUOXETINE 40 MG CAPSULE Take 40 mg by mouth once rc* * SERTRALINE 25 MG TABLET Take 1 tablet by mouth once d* Medication notes this encounter FLUOXETINE 40 MG CAPSULE >> Lesia Oates Ma 05/02/2019 2:05 PM >> LESIA OATES MA May 02, 2019 2:05 PM D/C Problem List As Of Date 05/02/2019 Noted Resolved Fracture of medial malleolus, left, closed [S82*INVALID FOR* Prescriptions ordered this encounter Disp Refills Start End NYSTATIN 100,000 UNIT/GRAM TOPICAL P* 30 g 0 05/02/2019 05/16/2019 Route: TOPICAL Sig: Apply 1 application to affected area twice daily for 14 days. Encounter Status:Closed by SHAI GUERRERO MD on 05/02/19 Normal [facility] PROGRESSon 05-02-2019 PROGRESS HNO ID: [id number] Author: Shai Guerrero Service: ? Author Type: Physician Type: Progress Notes Filed: 05/02/2019 2:29 PM Note Text: Patient presents with: Testicular Pain: with swelling x 1 week HPI: Testicular pain: Duration: bothering him for a month or 2. Much worse the last week Location: scrotum Character: Swollen painful and itchy rash Relieving: Neosporin last night helped PAST MEDICAL HISTORY Diagnosis Date - Depression - Disruptive mood dysregulation disorder (HCC) - Otitis media PAST SURGICAL HISTORY Procedure Laterality Date - PAST SURGICAL HISTORY OF 12/2010 teeth extracted x 2 MEDICATIONS: escitalopram oxalate (LEXAPRO) 10 mg tablet Take 1 tablet by mouth once daily. omeprazole (PRILOSEC) 20 mg capsule Take 1 capsule by mouth as needed. cloNIDine HCl (CATAPRES) 0.1 mg tablet Take 1 tablet by mouth once daily. ARIPiprazole (ABILIFY) 10 mg tablet Take 10 mg by mouth once daily. Acetaminophen (JR. TYLENOL MELTAWAYS) 160 mg TbDL Take by mouth. FLUoxetine HCl (PROZAC) 40 mg capsule Take 40 mg by mouth once daily. sertraline (ZOLOFT) 25 mg tablet Take 1 tablet by mouth once daily. ALLERGIES: ALLERGIES No Known Allergies VITALS: BP 104/68 Pulse 71 Temp 36.8 ?C (98.3 ?F) (Left Tympanic) Resp 16 Wt 94.5 kg (208 lb 6.4 oz) SpO2 98% PE: Pleasant, in no acute distress. Accompanied by his mother. : normal external male genitalia. Erythema of the scrotum, inguinal creases and perigenital thighs. Bilaterally descended testicles are non-tender. ASSESSMENT/PLAN: 1. Tinea cruris - ICD9: 110.3, ICD10: B35.6 He may use antifungal cream initially since it may be more soothing. - NYSTATIN 100,000 UNIT/GRAM TOPICAL POWDER Shai Guerrero MD Normal [facility] Vital Signs Date Time Vital Sign Value Performing Clinician Keeshai cecilio 11-14-2024 18:03-0400 Body temperature 99.19 [degF] Demetris King Jr., MUSIC PRODUCER.TAVIA Work Phone: [facility] 11-14-2024 18:03-0400 Body weight 104.24 kg Demetris King Jr., MUSIC PRODUCER.TAVIA Work Phone: [facility] 11-14-2024 18:03-0400 Diastolic blood pressure 88 mm[Hg] Demetris King Jr., MUSIC PRODUCER.TAVIA Work Phone: [facility] 11-14-2024 18:03-0400 Heart rate 105 /min Demetris King Jr., MUSIC PRODUCER.BOBBIN DOFFER Work Phone: [facility] 11-14-2024 18:03-0400 Respiratory rate 20 /min Demetris King Jr., MUSIC PRODUCER.BOBBIN DOFFER Work Phone: [facility] 11-14-2024 18:03-0400 SaO2% (BldA) [Mass fraction] 98 % Demetris King Jr., MUSIC PRODUCER.BOBBIN DOFFER Work Phone: [facility] 11-14-2024 18:03-0400 Systolic blood pressure 144 mm[Hg] Demetris King Jr., MUSIC PRODUCER.BOBBIN DOFFER Work Phone: [facility] 07-01-2023 14:57-0500 Body temperature 98.2 [degF] Giorgio Suellen DO Work Phone: [facility] 07-01-2023 14:57-0500 Diastolic blood pressure 85 mm[Hg] Giorgio Ken DO Work Phone: [facility] 07-01-2023 14:57-0500 Heart rate 76 /min Giorgio Suellen DO Work Phone: [facility] 07-01-2023 14:57-0500 Respiratory rate 14 /min Giorgio Suellen DO Work Phone: [facility] 07-01-2023 14:57-0500 SaO2% (BldA) [Mass fraction] 97 % Giorgio Suellen DO Work Phone: [facility] 07-01-2023 14:57-0500 Systolic blood pressure 152 mm[Hg] Giorgio Suellen DO Work Phone: [facility] 06-30-2023 11:04-0500 Body height 190.5 cm Edis Castle DO Work Phone: [facility] 06-30-2023 11:04-0500 Body mass index (BMI) [Ratio] 24.47 kg/m2 Edis Castle DO Work Phone: [facility] 06-30-2023 11:04-0500 Body weight 88.8 kg Edis Castle DO Work Phone: [facility] 06-30-2023 10:59-0500 Body temperature 101.3 [degF] Edis Castle DO Work Phone: [facility] 06-30-2023 10:59-0500 Diastolic blood pressure 69 mm[Hg] Edis Monroeugh DO Work Phone: [facility] 06-30-2023 10:59-0500 Heart rate 109 /min Edis Castle DO Work Phone: [facility] 06-30-2023 10:59-0500 Respiratory rate 18 /min Edis Castle DO Work Phone: [facility] 06-30-2023 10:59-0500 SaO2% (BldA) [Mass fraction] 97 % Edis Catsle DO Work Phone: [facility] 06-30-2023 10:59-0500 Systolic blood pressure 129 mm[Hg] Edis Castle DO Work Phone: [facility] 06-28-2023 12:16-0500 Body temperature 99.81 [degF] Merlin Cleaning MARKETING SEGMENT MANAGER Work Phone: [facility] 06-28-2023 12:16-0500 Heart rate 97 /min Merlin West MARKETING SEGMENT MANAGER Work Phone: [facility] 06-28-2023 12:16-0500 Respiratory rate 16 /min Merlin West MARKETING SEGMENT MANAGER Work Phone: [facility] 06-28-2023 12:16-0500 SaO2% (BldA) [Mass fraction] 99 % Merlin West MARKETING SEGMENT MANAGER Work Phone: [facility] 01-18-2023 08:12-0400 Body temperature 97.9 [degF] Rafal Trevino MD Work Phone: [facility] 01-18-2023 08:12-0400 Diastolic blood pressure 73 mm[Hg] Rafal Trevino MD Work Phone: [facility] 01-18-2023 08:12-0400 Heart rate 58 /min Rafal Trevino MD Work Phone: [facility] 01-18-2023 08:12-0400 Respiratory rate 16 /min Rafal Trevino MD Work Phone: [facility] 01-18-2023 08:12-0400 SaO2% (BldA) [Mass fraction] 100 % Rafal Trevino MD Work Phone: [facility] 01-18-2023 08:12-0400 Systolic blood pressure 115 mm[Hg] Rafal Trevino MD Work Phone: [facility] 01-14-2023 01:58-0400 Body height 190.5 cm Rafal Trevino MD Work Phone: [facility] 01-14-2023 01:58-0400 Body mass index (BMI) [Ratio] 20.62 kg/m2 Rafal Trevino MD Work Phone: [facility] 01-14-2023 01:58-0400 Body weight 74.84 kg Rafal Trevino MD Work Phone: [facility] 12-30-2022 01:46-0400 SaO2% (BldA) [Mass fraction] 98 % Pina Foskey DO Work Phone: [facility] 12-30-2022 01:42-0400 Diastolic blood pressure 50 mm[Hg] Pina Foskey DO Work Phone: [facility] 12-30-2022 01:42-0400 Heart rate 58 /min Pina Foskey DO Work Phone: [facility] 12-30-2022 01:42-0400 Respiratory rate 18 /min Pina Foskey DO Work Phone: [facility] 12-30-2022 01:42-0400 Systolic blood pressure 94 mm[Hg] Pina Foskey DO Work Phone: [facility] 12-30-2022 01:04-0400 Body temperature 97.81 [degF] Pina Cobos DO Work Phone: [facility] 12-30-2022 01:04-0400 Body weight 82.24 kg Pina Cobos DO Work Phone: [facility] 02-24-2022 11:55-0400 Body height 188 cm Latoya Chambers MD Work Phone: [facility] 02-24-2022 11:55-0400 Body mass index (BMI) [Ratio] 26.28 kg/m2 Latoya Chambers MD Work Phone: [facility] 02-24-2022 11:55-0400 Body weight 92.85 kg Latoya Chambers MD Work Phone: [facility] 02-24-2022 11:55-0400 Diastolic blood pressure 63 mm[Hg] Latoya Chambers MD Work Phone: [facility] 02-24-2022 11:55-0400 Heart rate 65 /min Latoya Chambers MD Work Phone: [facility] 02-24-2022 11:55-0400 SaO2% (BldA) [Mass fraction] 95 % Latoya Chambers MD Work Phone: [facility] 02-24-2022 11:55-0400 Systolic blood pressure 98 mm[Hg] Latoya Chambers MD Work Phone: [facility] Encounters Encounter Date Encounter Type Care Provider Facility Start: 01-30-2025 End: 01-30-2025 Emergency department patient visit Facility:[id number] Start: 11-14-2024 End: 11-14-2024 ambulatory SELF Facility:[id number] Start: 11-14-2024 End: 11-14-2024 Patient encounter procedure Demetris King APRN.BOBBIN DOFFER Work Phone: [facility] Nelda Comment on above: Fatigue, unspecified type (Primary Dx); Acute cough Start: 11-14-2024 End: 11-21-2024 ambulatory [facility] Facility:[facility] Start: 11-05-2024 End: 11-13-2024 ambulatory [facility] Facility:[facility] Start: 10-17-2023 End: 10-17-2023 Emergency department patient visit NONE PHYSICIAN Facility:A Start: 09-21-2023 End: 09-21-2023 Emergency department patient visit NONE PHYSICIAN Facility:A Start: 07-01-2023 End: 07-01-2023 Emergency department patient visit GIORGIO KEN Facility:[facility] Start: 07-01-2023 End: 07-01-2023 Emergency department patient visit Giorgio Ken DO Work Phone: [facility] Emergency Department Start: 06-30-2023 End: 06-30-2023 Emergency department patient visit SELF SELF Facility:[facility] Start: 06-30-2023 End: 06-30-2023 Emergency department patient visit Edis Castle DO Work Phone: [facility] Emergency Department Start: 06-28-2023 ambulatory [facility] Facility:[facility] Start: 06-28-2023 End: 06-28-2023 Office outpatient new 30 minutes [facility] MARKETING SEGMENT MANAGER Work Phone: [facility] Comment on above: Viral illness (Prima ry Dx); Sore throat Start: 01-13-2023 End: 01-18-2023 Evaluation and management of inpatient [facility] Start: 01-13-2023 End: 01-18-2023 Evaluation and management of inpatient Genia Mao MD Work Phone: [facility] Start: 12-30-2022 End: 12-30-2022 Emergency department patient visit PINA COBOS [facility] Start: 12-30-2022 End: 12-30-2022 Emergency department patient visit Pina Cobos DO Work Phone: [facility] Emergency Department Start: 05-11-2022 End: 05-11-2022 Emergency department patient visit PHYSICIAN [facility] Start: 03-18-2022 Documentation procedure Magaly Willams MA [facility] Comment on above: Care coordination P Start: 02-25-2022 Documentation procedure Magaly Willams MA [facility] Comment on above: Care coordination P Start: 02-24-2022 End: 02-24-2022 ambulatory LATOYA CHAMBERS [facility] Amb[facility] Start: 02-24-2022 End: 02-24-2022 Office outpatient new 45 minutes Latoya Chambers MD Work Phone: [facility] Comment on above: Encounter to [facility] (Primary Dx); Anxiety and depression Start: 12-25-2021 End: 12-25-2021 Emergency department patient visit [facility] Procedures Date Procedure Procedure Detail Performing Clinician Start: 06-30-2023 RESPIRATORY PANEL (C OVID, FLU, RSV) Edis Castle DO Work Phone: Start: 06-28-2023 Iadna streptococcus group a amplified probe tq [facility] MARKETING SEGMENT MANAGER Work Phone: Start: 01-14-2023 Ecg routine ecg w/le ast 12 lds trcg only w/o i&r Nasreen Hadley MD Work Phone: Start: 01-14-2023 Comprehensive metabo lic panel Nasreen Hadley MD Work Phone: Start: 01-14-2023 Lipid panel Nasreen Hadley MD Work Phone: Start: 01-13-2023 Drug tst prsmv instr mnt chem analyzers pr date Genia Mao MD Work Phone: Start: 01-13-2023 Blood ethanol measurement Genia Mao MD Work Phone: Start: 01-13-2023 ROBIN TOP Genia Mao MD Work Phone: Start: 01-13-2023 LAVENDER TOP Genia Mao MD Work Phone: Start: 01-13-2023 LIGHT GREEN TOP Genia Mao MD Work Phone: Start: 01-13-2023 MINT GREEN TOP Genia Mao MD Work Phone: Start: 01-13-2023 RAINBOW DRAW Genia Mao MD Work Phone: Start: 02-24-2022 Adult depression scr eening assessment Latoya Chambers MD Work Phone: Plan of Treatment Date Care Activity Detail Author Start: 03-17-2025 Influenza vaccination Influenza Vaccine (Season Ended) [facility] Start: 02-27-2025 Urine microalbumin profile DTaP,Tdap,Td Vaccine (4 - Td or Tdap) [facility] Start: 03-17-2024 Covid-19 Vaccine ( season) Covid-19 Vaccine ( season) [facility] Start: 03-17-2023 Influenza [facility] Start: 01-27-2023 End: 01-27-2023 Patient encounter procedure 01/27/2023 3:30 PM EDT Office Visit [facility] [address] [place] [phone] Guanako Shepherd CNP [address] [place] [address] [facility] Start: 12-25-2022 Depression Remission Assessment (PHQ9) Depression Remission Assessment (PHQ9) [facility] Start: 03-17-2022 Influenza vaccination Sequential Influenza Vaccine (#1) [facility] Start: 03-10-2022 End: 03-10-2022 Patient encounter procedure 03/10/2022 Office Visit Primary Care Latoya Chambers MD [address] [place] [address] [id number] [facility] Start: 2021 Hepatitis B Vaccine (1 of 3 - 19+ 3-dose series) Hepatitis B Vaccine (1 of 3 - 19+ 3-dose series) [facility] Start: 2021 Third diphtheria, tetanus and acellular pertussis (DTaP) vaccination TDAP (ADULT) [facility] Start: 2020 Anxiety Screening Anxiety Screening [facility] Start: 2020 Depression Screening Depression Screening [facility] Start: 2020 Hepatitis C screening Hepatitis C Screening [facility] Start: 2020 HIV screening HIV Screening [facility] Start: 2018 Meningococcal B Vaccine (1 of 2 - Standard) Meningococcal B Vaccine (1 of 2 - Standard) [facility] Start: [address] [facility] Start: 2017 HPV Vaccine (1 - Male 3-dose series) HPV Vaccine (1 - Male 3-dose series) [facility] Start: 2016 Peds To Adult Transition Annual Assessment Peds To Adult Transition Annual Assessment [facility] Start: 2014 Depression screening using PHQ-9 (Patient Health Questionnaire 9) score Depression Screening (PHQ-2/9) [facility] Start: 2014 Peds To Adult Transition Initial Discussion Peds To Adult Transition Initial Discussion [facility] Start: 2013 Vaccination for human papillomavirus [facility] Start: 2008 PNEUMOCOCCAL VACCINE SERIES (1 - PCV) PNEUMOCOCCAL VACCINE SERIES (1 - PCV) [facility] Start: 2008 Pneumococcal Vaccine: Ped or At-Risk (1 - PCV) Pneumococcal Vaccine: Ped or At-Risk (1 - PCV) [facility] [facility] Start: 2005 History and physical examination, annual for health maintenance Wellness Visit [facility] Start: 03-25-2003 COVID-19 Vaccine (#1) COVID-19 Vaccine (#1) [facility] Start: 2002 Hepatitis B vaccination HEP B VACCINE (1 of 3 - 3-dose series) [facility] Start: 2002 Hepatitis C screening HEPATITIS C VIRUS SCREENING [facility] Start: [address] [facility] COVID & INFLUENZA A/ B & RSV PCR, ROUTINE COVID & INFLUENZA A/B & RSV PCR, ROUTINE Microbiology Routine Fatigue, unspecified type Acute cough 11/14/2024 6:43 PM EDT [facility] Work Phone: Immunizations Immunization Date Immunization Notes Care Provider Viraj dacosta 06-10-2013 influenza virus vacc ine, unspecified formulation Demetris King Jr., MUSIC PRODUCER.BOBBIN DOFFER Work Phone: [facility] Payers Date Payer Category Payer Self-pay 2024 Unknown [id number] 2023 Private Health Insurance [id number] 2023 Medicaid MEDICAID [facility] [id number] 2023-Present [phone] [address] [place] [address] [id number] 2022 Medicaid [id number] 2022 Unknown [id number] 2019 Unknown [id number] 2019 Unknown [id number] 2002 Unknown [id number] 00 2002 Unknown [id number] 03 2002 Unknown [id number] 03 2002 Unknown [id number] 03 2002 Unknown [id number] 78 2002 Unknown [id number] 78 2002 Unknown [id number] 78 2002 Unknown [id number] 83 2002 Unknown [id number] 27 2002 Unknown [id number] 27 Unknown [id number] 62 Unknown [id number] 62 Social History Date Type Detail Facility Start: 12-25-2021 End: 06-28-2023 Tobacco smoking status NVIS Occasional tobacco smoker [facility] History of tobacco use Cigarette Smoker [facility] Start: 12-25-2021 End: 11-14-2024 Cigarettes smoked current (pack per day) - Reported 0.5 [facility] Start: 12-25-2021 End: 11-14-2024 Tobacco use and exposure Smokeless tobacco non-user [facility] Start: 02-24-2022 Alcohol intake Current drinke r of alcohol (finding) [facility] Start: 02-24-2022 History SDOH Alcohol [facility] Start: 02-24-2022 History SDOH Alcohol Comment socially [facility] Start: 02-24-2022 History SDOH [facility] Start: 02-24-2022 History SDOH Food Worry [address] [facility] Start: 02-24-2022 History SDOH Transport Med 2 [facility] Start: 2002 [facility]: 02-14-2022 End: 12-30-2022 Exposure to SARS-CoV-2 (event) Not sure [facility] Start: 12-30-2022 End: 11-14-2024 Tobacco smoking status NVIS Never smoked tobacco [facility] Start: 12-30-2022 End: 11-14-2024 Alcohol intake Ex-drinker (finding) [facility] Start: 12-30-2022 End: 11-14-[address] [facility] Start: 01-14-2023 Tobacco smoking status NHIS Smokes tobacco daily [facility] Start: 01-14-2023 Tobacco use and exposure Former smokeless tobacco user [facility] How often to you hav e a drink containing alcohol? 2-[address] [facility] Average Number of Drinks Not on file [facility] How often do you hav e 6 or more drinks on 1 occasion? Monthly [facility] Do you feel stress - tense, restless, nervous, or anxious, or unable to sleep at night because your mind is troubled all the time - these days [OSQ] Very much [facility] (I/We) worried whether (my/our) food would run out before (I/we) got money to buy more. Never true [facility] In the past 12 months, was there a time when you were not able to pay the mortgage or rent on time? No [facility] Start: 09-15-2022 Gender identity Identifies as male gender (finding) [facility] Start: 09-15-2022 Sexual orientation Heterosexual (fin ling) [facility] Start: 06-28-2023 Tobacco use and exposure User of smokeless tobacco [facility] Phone: NEGATED: Highlighted rowStart: MARITZA History of tobacco use Passive smoker [facility] Clinical Notes 01-20-2020 to 11-14-2024 Patient InstructionsDemetris King Jr., MUSIC PRODUCER.BOBBIN DOFFER - 11/14/2024 6:34 PM EDTDischarge InstructionsAttachJoaquim Ken, DO - 07/01/2023 3:16 PM Eva Ken, DO - 07/01/2023 3:16 PM ESTAttachments Note Date & Type Note Facility 11-14-2024 Note SARS-COV-2 (AGENT OF COVID-19) RNA: Not detected INFLUENZA A RNA: Not detected INFLUENZA B RNA: Not detected RESPIRATORY SYNCYTIAL VIRUS (RSV) RNA: Not detected [facility] Comment on above: Performed By: #### [id number] #### [facility] CLIA [id number] [address] [place] [address] [place] 11-14-2024 Instructions Demetris King Jr., MUSIC PRODUCER.BOBBIN DOFFER - 11/14/2024 6:36 PM EDT Use Tylenol and the prescribed ibuprofen (800?mg for 7 days) as needed for pain, fever, or discomfort. You may use Bromfed DM if you need additional relief from your cough or congestion (note it lasts about 6 hours). Your COVID/influenza test results will be available tomorrow; please plan to stay home tomorrow while you wait for the results. Rest and take it slow with work and activities until you feel better. documented in this encounter [facility] 11-14-2024 Note HNO ID: [id number] Author: DEMETRIS KING JR, APRN.BOBBIN DOFFER Service: ? Author Type: Nurse Practitioner Type: Progress Notes Filed: 11/14/2024 21:19 Note Text: [facility] NELDA Benitez is a 24 year old male. The patient is a 23-year-old male presenting with acute onset of sore throat, headaches, myalgias, and fatigue. Patient presents with: Cough: Cough, body aches, fatigue, sore throat, diarrhea x 3 days HPI Acute URI Symptoms: - Onset of symptoms began Monday night/Monday morning. - Severe sore throat described as feeling like a branding iron or cigarette in the back of the throat. - Headaches, myalgias, and fatigue. - Low-grade fever noted during triage; has not checked temperature at home. - Mild cough, described as nothing crazy. - Nasal congestion and difficulty breathing through the nose. - Thick, phlegmy mucus in the throat, difficult to expectorate. - Denies diarrhea. - Has not been around anyone with strep throat. - Stayed home from work today due to symptoms. Review of Systems Constitutional: Positive for fatigue and fever. HENT: Positive for sinus pain. Respiratory: Positive for cough. Gastrointestinal: Negative for abdominal pain. Neurological: Positive for headaches. Objective BP 144/88 Pulse 105 Temp 37.3 ?C (99.2 ?F) (Temporal) Resp 20 Wt 104.2 kg (229 lb 12.8 oz) SpO2 98% Physical Exam General: No acute distress. HEENT: Tympanic membranes pearly william, no signs of infection; ear canals unremarkable; pharynx with significant mucus, no exudate. CV: Heart sounds normal, regular rhythm. Abd: Bowel sounds normal; no tenderness to palpation. Skin: Warm, dry. Tests: (Today) Combined COVID-19, Influenza, and RSV test: Results pending 1. Fatigue, unspecified type (R53.83) 2. Acute cough (R05.1) - Onset of symptoms began Monday morning, including severe pharyngitis, cephalalgia, myalgia, and fatigue. Low-grade fever recorded during triage. Mild cough and nasal congestion reported. No significant dyspnea or abdominal tenderness noted on examination. - Tympanic membranes are pearly william with no signs of infection; ear canals are unremarkable. Oropharyngeal examination reveals significant mucus without exudate. - Differential diagnosis includes viral upper respiratory infection, influenza, and COVID-19. - Ordered respiratory panel to test for COVID-19, influenza, and RSV; results expected tomorrow. - Recommended staying home from work and school until results are available. - Initiated Bromfed DM for cough and decongestion, advised use of Mucinex with adequate hydration (8-12 glasses of water per day) to facilitate mucus clearance. - Prescribed ibuprofen 800 mg for 7 days to manage pain and inflammation. - Patient understands and agrees with the treatment plan. { and Recording using [employer] software for draft documentation of the visit was discussed with the patient/authorized investment representative; all questions welcomed and answered. Patient/authorized investment representative agreed to proceed MDM Procedures [facility] 11-14-2024 History of Present illness Narrative [facility] NELDA Benitez is a 24 year old male. The patient is a 23-year-old male presenting with acute onset of sore throat, headaches, myalgias, and fatigue. Patient presents with: Cough: Cough, body aches, fatigue, sore throat, diarrhea x 3 days HPI Acute URI Symptoms: - Onset of symptoms began Monday night/Monday morning. - Severe sore throat described as feeling like a branding iron or cigarette in the back of the throat. - Headaches, myalgias, and fatigue. - Low-grade fever noted during triage; has not checked temperature at home. - Mild cough, described as nothing crazy. - Nasal congestion and difficulty breathing through the nose. - Thick, phlegmy mucus in the throat, difficult to expectorate. - Denies diarrhea. - Has not been around anyone with strep throat. - Stayed home from work today due to symptoms. Review of Systems Constitutional: Positive for fatigue and fever. HENT: Positive for sinus pain. Respiratory: Positive for cough. Gastrointestinal: Negative for abdominal pain. Neurological: Positive for headaches. Objective BP 144/88 Pulse 105 Temp 37.3 C (99.2 F) (Temporal) Resp 20 Wt 104.2 kg (229 lb 12.8 oz) SpO2 98% Physical Exam General: No acute distress. HEENT: Tympanic membranes pearly william, no signs of infection; ear canals unremarkable; pharynx with significant mucus, no exudate. CV: Heart sounds normal, regular rhythm. Abd: Bowel sounds normal; no tenderness to palpation. Skin: Warm, dry. Tests: (Today) Combined COVID-19, Influenza, and RSV test: Results pending 1. Fatigue, unspecified type (R53.83) 2. Acute cough (R05.1) - Onset of symptoms began Monday morning, including severe pharyngitis, cephalalgia, myalgia, and fatigue. Low-grade fever recorded during triage. Mild cough and nasal congestion reported. No significant dyspnea or abdominal tenderness noted on examination. - Tympanic membranes are pearly william with no signs of infection; ear canals are unremarkable. Oropharyngeal examination reveals significant mucus without exudate. - Differential diagnosis includes viral upper respiratory infection, influenza, and COVID-19. - Ordered respiratory panel to test for COVID-19, influenza, and RSV; results expected tomorrow. - Recommended staying home from work and school until results are available. - Initiated Bromfed DM for cough and decongestion, advised use of Mucinex with adequate hydration (8-12 glasses of water per day) to facilitate mucus clearance. - Prescribed ibuprofen 800 mg for 7 days to manage pain and inflammation. - Patient understands and agrees with the treatment plan. { and Recording using [employer] software for draft documentation of the visit was discussed with the patient/authorized investment representative; all questions welcomed and answered. Patient/authorized investment representative agreed to proceed MDM Procedures documented in this encounter [facility] 07-01-2023 Hospital Discharge instructions Giorgio Ken, - 07/01/2023 3:57 PM EST Thank you for coming to [facility] ED for your healthcare needs! You were seen and evaluated for dental pain. You did not want to get CT scan or labs performed during this visit. Please continue take the antibiotic as prescribed. You were given a short course of pain medication for home. Did not take prior to driving or operating heavy machinery understand the risks of addiction, respiratory depression with this medication. There is Tylenol and this medication but you can supplement with Motrin and Tylenol with a max dose of Tylenol 4 g a day.. Please return to the emergency department for any new or concerning symptoms such as but not limited to drooling, inability to swallow secretions. no improvement after 48 hours of antibiotics or any other new or concerning symptoms.. Please call you PCP and schedule a follow up appointment as soon as possible for re-evaluation. If you were provided with follow up with a specialist please call and schedule an appointment as soon as possible. Please take all medications as prescribed. You were given information regards to the dental Clinic at [facility]. Recommend calling to schedule a follow-up appointment as soon as possible. Please look for a survey in the mail and to give us feedback about the care you received today. Have a great day! The following attachments cannot be sent through Care Everywhere.Tooth and Gum Pain (Tajik)documented in this encounter [facility] Work Phone: 07-01-2023 Physician Emergency department Note Chief Complaint Patient presents with Abscess Abel Benitez is a 22 y.o. male who presented with complaints of concerns for her a dental abscess. Patient was seen evaluated yesterday for similar complaint. He was discharged home on Augmentin. He is had 1 dose of Augmentin since discharge. At that time it was discussed per chart review of possibly obtaining a CT scan although the suspicion remained low for any deep space abscess. Patient states that he was having fevers previously, no fevers today and has not taken anything for pain prior to arrival or today at all. He states that he is really here because of the pain. He states that it hurts to swallow but is able tolerate his secretions. Denies any headache, vomiting, neck stiffness. Past Medical History: Diagnosis Date Syncope No past surgical history on file. History reviewed. No pertinent family history. No Known Allergies Social History Socioeconomic History Marital status: Single Spouse name: Not on file Number of children: Not on file Years of education: Not on file Highest education level: Not on file Occupational History Not on file Tobacco Use Smoking status: Some Days Types: Cigarettes Smokeless tobacco: Current Vaping Use Vaping Use: Some days Substance and Sexual Activity Alcohol use: Not Currently Drug use: Yes Frequency: 7.0 times per week Types: Other, Marijuana Comment: THC edible at night for sleep Sexual activity: Yes Other Topics Concern Not on file Social History Narrative Not on file Social Determinants of Health Financial Resource Strain: Not on file Food Insecurity: Not on file Transportation Needs: Not on file Physical Activity: Not on file Stress: Not on file Social Connections: Not on file Intimate Partner Violence: Not on file Housing Stability: Not on file Review of Systems Constitutional: Negative for activity change, appetite change, fatigue and fever. HENT: Positive for dental problem and sore throat. Negative for congestion and drooling. Gastrointestinal: Negative for nausea and vomiting. Musculoskeletal: Negative for neck pain and neck stiffness. Skin: Negative for wound. Neurological: Negative for headaches. All other systems reviewed and are negative. Physical Exam ED Triage Vitals [07/01/23 1457] Enc Vitals Group BP 152/85 Pulse (Heart Rate) 76 Resp Rate 14 Temp 98.2 F (36.8 C) Temp source Oral O2 Sat (%) 97 % Weight Height Head Circumference Peak Flow Pain Score Pain Loc Pain Edu? Excl. in GC? Vitals: 07/01/23 1457 BP: 152/85 Pulse: 76 Resp: 14 Temp: 98.2 degrees F (36.8 degrees C) TempSrc: Oral SpO2: 97% Physical Exam Vitals and nursing note reviewed. Constitutional: General: He is not in acute distress. Appearance: Normal appearance. He is not ill-appearing or toxic-appearing. HENT: Head: Normocephalic and atraumatic. Mouth/Throat: Mouth: Mucous membranes are moist. Comments: Patient handling secretions without difficulty, no dental abscess, there is some poor dentition, particularly in the right lower molars, no submental swelling or erythema, no tongue elevation, there is some mild posterior pharyngeal erythema on the right, but tonsils are symmetric, uvula midline, no trismus, handling secretions without difficulty. Does have some reproducible dental pain with palpation of the most posterior molar on the lower right side Cardiovascular: Rate and Rhythm: Normal rate. Pulses: Normal pulses. Pulmonary: Effort: Pulmonary effort is normal. No respiratory distress. Abdominal: General: Abdomen is flat. Neurological: Mental Status: He is alert. Mental status is at baseline. Psychiatric: Behavior: Behavior normal. No results found for this visit on 07/01/23. No orders to display EKG ED Course Upon my evaluation, this patient had high probability of imminent or life-threatening deterioration due to which required my direct attention, intervention and personal management Total minutes of critical care time spent in direct and indirect care of this critically ill patient excludes separately billable procedures. This time includes airway assessment and stabilization if indicated, ordering and interpretation of laboratory data, ordering and interpretation of radiologic tests, discussion with consultants/patient's family, and monitoring for potential decompensation. Interventions were performed as documented. MEDICAL DECISION MAKING External documents reviewed: nursing notes this encounter, patient medical records available in [employer] locally or with care everywhere Medical Decision Making Patient is [age] male who presents with complaints of dental pain, sore throat. On exam patient is well-appearing, nontoxic. Vital signs are within normal limits. Patient is handling secretions without difficulty, no change in phonation. No red flags on exam, uvula midline, tonsils symmetric, no dental abscess, no tongue elevation or submandibular swelling or erythema. He is tolerating his secretions. Based on his clinical exam I have a low suspicion for peritonsillar abscess, Mark's or other deep space infections however per chart review from visit yesterday did offer CT scan with contrast as well as basic labs. Patient states that he does not want CT or labs at this time and is just here for something for pain. I did discuss with the patient why we would be obtaining the CT scan including for looking for deep space infection, small peritonsillar abscess that is not clinically evident on exam. Patient is understanding of this, the risks and benefits and is declining at this time. Will plan for a 1 time dose of Percocet, Zofran to prevent any nausea or vomiting and if patient is feeling better discharge home. ED Course as of 07/01/23 1701 Time: 07/01 152 Comment: Given that patient has only taken 1 dose of the antibiotic, would not consider this a failure of outpatient antibiotics. I did discuss this with the patient. Time: 07/01 1537 Comment: Patient is feeling better after the dose of pain medication. Will give him a couple doses for home as well as information for follow-up in the dental clinic at [facility]. Patient is still does not want labs and CT scan at this time. He does want to go home with pain control. Will provide patient prescription for Percocet, he was instructed not to take prior to driving or operating heavy machinery understand the risks of addiction and respiratory depression with this medication. Patient was given strict return precautions including no improvement of symptoms after 48 hours of antibiotics, inability to handle secretions or any other concerning symptoms. Patient agreeable for discharge home at this time. After shared decision-making patient discharged home in stable condition. Risk Prescription drug management. Shared decision making: Discussed plan of care and follow up plan with patient Code status if being admitted: 1. Pain, dental Giorgio Ken DO 07/01/23 1701 [facility] Phone: 07-01-2023 Emergency department Note Chief Complaint Patient presents with Abscess Abel Benitez is a 22 y.o. male who presented with complaints of concerns for her a dental abscess. Patient was seen evaluated yesterday for similar complaint. He was discharged home on Augmentin. He is had 1 dose of Augmentin since discharge. At that time it was discussed per chart review of possibly obtaining a CT scan although the suspicion remained low for any deep space abscess. Patient states that he was having fevers previously, no fevers today and has not taken anything for pain prior to arrival or today at all. He states that he is really here because of the pain. He states that it hurts to swallow but is able tolerate his secretions. Denies any headache, vomiting, neck stiffness. Past Medical History: Diagnosis Date Syncope No past surgical history on file. History reviewed. No pertinent family history. No Known Allergies Social History Socioeconomic History Marital status: Single Spouse name: Not on file Number of children: Not on file Years of education: Not on file Highest education level: Not on file Occupational History Not on file Tobacco Use Smoking status: Some Days Types: Cigarettes Smokeless tobacco: Current Vaping Use Vaping Use: Some days Substance and Sexual Activity Alcohol use: Not Currently Drug use: Yes Frequency: 7.0 times per week Types: Other, Marijuana Comment: THC edible at night for sleep Sexual activity: Yes Other Topics Concern Not on file Social History Narrative Not on file Social Determinants of Health Financial Resource Strain: Not on file Food Insecurity: Not on file Transportation Needs: Not on file Physical Activity: Not on file Stress: Not on file Social Connections: Not on file Intimate Partner Violence: Not on file Housing Stability: Not on file Review of Systems Constitutional: Negative for activity change, appetite change, fatigue and fever. HENT: Positive for dental problem and sore throat. Negative for congestion and drooling. Gastrointestinal: Negative for nausea and vomiting. Musculoskeletal: Negative for neck pain and neck stiffness. Skin: Negative for wound. Neurological: Negative for headaches. All other systems reviewed and are negative. Physical Exam ED Triage Vitals [07/01/23 1457] Enc Vitals Group BP 152/85 Pulse (Heart Rate) 76 Resp Rate 14 Temp 98.2 F (36.8 C) Temp source Oral O2 Sat (%) 97 % Weight Height Head Circumference Peak Flow Pain Score Pain Loc Pain Edu? Excl. in GC? Vitals: 07/01/23 1457 BP: 152/85 Pulse: 76 Resp: 14 Temp: 98.2 degrees F (36.8 degrees C) TempSrc: Oral SpO2: 97% Physical Exam Vitals and nursing note reviewed. Constitutional: General: He is not in acute distress. Appearance: Normal appearance. He is not ill-appearing or toxic-appearing. HENT: Head: Normocephalic and atraumatic. Mouth/Throat: Mouth: Mucous membranes are moist. Comments: Patient handling secretions without difficulty, no dental abscess, there is some poor dentition, particularly in the right lower molars, no submental swelling or erythema, no tongue elevation, there is some mild posterior pharyngeal erythema on the right, but tonsils are symmetric, uvula midline, no trismus, handling secretions without difficulty. Does have some reproducible dental pain with palpation of the most posterior molar on the lower right side Cardiovascular: Rate and Rhythm: Normal rate. Pulses: Normal pulses. Pulmonary: Effort: Pulmonary effort is normal. No respiratory distress. Abdominal: General: Abdomen is flat. Neurological: Mental Status: He is alert. Mental status is at baseline. Psychiatric: Behavior: Behavior normal. No results found for this visit on 07/01/23. No orders to display EKG ED Course Upon my evaluation, this patient had high probability of imminent or life-threatening deterioration due to which required my direct attention, intervention and personal management Total minutes of critical care time spent in direct and indirect care of this critically ill patient excludes separately billable procedures. This time includes airway assessment and stabilization if indicated, ordering and interpretation of laboratory data, ordering and interpretation of radiologic tests, discussion with consultants/patient's family, and monitoring for potential decompensation. Interventions were performed as documented. MEDICAL DECISION MAKING External documents reviewed: nursing notes this encounter, patient medical records available in Epic locally or with care everywhere Medical Decision Making Patient is J89-ifdr-jzy male who presents with complaints of dental pain, sore throat. On exam patient is well-appearing, nontoxic. Vital signs are within normal limits. Patient is handling secretions without difficulty, no change in phonation. No red flags on exam, uvula midline, tonsils symmetric, no dental abscess, no tongue elevation or submandibular swelling or erythema. He is tolerating his secretions. Based on his clinical exam I have a low suspicion for peritonsillar abscess, Mark's or other deep space infections however per chart review from visit yesterday did offer CT scan with contrast as well as basic labs. Patient states that he does not want CT or labs at this time and is just here for something for pain. I did discuss with the patient why we would be obtaining the CT scan including for looking for deep space infection, small peritonsillar abscess that is not clinically evident on exam. Patient is understanding of this, the risks and benefits and is declining at this time. Will plan for a 1 time dose of Percocet, Zofran to prevent any nausea or vomiting and if patient is feeling better discharge home. ED Course as of 07/01/23 170 Time: 07/01 1524 Comment: Given that patient has only taken 1 dose of the antibiotic, would not consider this a failure of outpatient antibiotics. I did discuss this with the patient. Time: 07/01 1559 Comment: Patient is feeling better after the dose of pain medication. Will give him a couple doses for home as well as information for follow-up in the dental clinic at [facility]. Patient is still does not want labs and CT scan at this time. He does want to go home with pain control. Will provide patient prescription for Percocet, he was instructed not to take prior to driving or operating heavy machinery understand the risks of addiction and respiratory depression with this medication. Patient was given strict return precautions including no improvement of symptoms after 48 hours of antibiotics, inability to handle secretions or any other concerning symptoms. Patient agreeable for discharge home at this time. After shared decision-making patient discharged home in stable condition. Risk Prescription drug management. Shared decision making: Discussed plan of care and follow up plan with patient Code status if being admitted: 1. Pain, dental Giorgio Ken DO 07/01/231702 Pt here for same complaint yesterday, abscess to right lower wisdom tooth, given antibiotics. Pt states feeling worse and fever persists. However patient hasn't taken anything for fever since yesterday documented in this encounter -[facility] Phone: 07-01-2023 Emergency department Note Pt here for same complaint yesterday, abscess to right lower wisdom tooth, given antibiotics. Pt states feeling worse and fever persists. However patient hasn't taken anything for fever since yesterday -[facility] Phone: 06-30-2023 Hospital Discharge instructions Edis Castle DO - 06/30/2023 11:37 AM EST As we discussed there was no specific abscess to be drained today. I am not sure that your fever is coming from your dental infection. I will call you with your viral panel results which maybe helpful. Take the antibiotics prescribed as directed return to the emergency department if you feel any worsened swelling in the back of your throat difficulty breathing lightheadedness or any other concerns The following attachments cannot be sent through Care Everywhere.URI (Upper Respiratory Infection): Viral (Tajik)Tooth: Abscessed (Tajik)documented in this encounter -[facility] Phone: 06-30-2023 Physician Emergency department Note Chief Complaint Patient presents with Dental Pain Abscess Abel Benitez is a 22 y.o. male who presented with concerns for a dental infection. The patient has had URI symptoms for the past several days was seen at urgent care a few days ago had a rapid strep test that was negative worse complaint at that point was a sore throat but also with nasal congestion stuffy head runny nose. He states around that time that he was there he began with some dental pain in his wisdom tooth on the bottom right. He feels it is swollen inside of his mouth a little in his worried that he is an abscess areas never had that before. No difficulty breathing or swallowing other than the sore throat sensation that he has been having. He has been having fevers off and on past 3 days as well unsure if they are coming from dental infection or his other illness. Family member was positive sick contact ill at the same time Past Medical History: Diagnosis Date Syncope No past surgical history on file. No family history on file. No Known Allergies Social History Socioeconomic History Marital status: Single Spouse name: Not on file Number of children: Not on file Years of education: Not on file Highest education level: Not on file Occupational History Not on file Tobacco Use Smoking status: Some Days Types: Cigarettes Smokeless tobacco: Current Vaping Use Vaping Use: Some days Substance and Sexual Activity Alcohol use: Not Currently Drug use: Yes Frequency: 7.0 times per week Types: Other, Marijuana Comment: THC edible at night for sleep Sexual activity: Yes Other Topics Concern Not on file Social History Narrative Not on file Social Determinants of Health Financial Resource Strain: Not on file Food Insecurity: Not on file Transportation Needs: Not on file Physical Activity: Not on file Stress: Not on file Social Connections: Not on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 motivation. 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 As he got older, he began to have periods of high energy and severe insomnia, sometimes lasting for weeks at a time. His mood remains dysphoric during these periods. He only has (visual) hallucinations and paranoid thoughts when he has been sleep deprived for a while. His mother and maternal grandfather are both diagnosed with bipolar disorder. He has a [employer] card. Other than this, he does not drink alcohol or use street drugs. He does admit to taking his medications irregularly. Discharge Diagnoses and Associated Hospital Course: * Bipolar affective disorder, depressed, severe ([facility]) Assessment & Plan A: Abel is a 22 year old male who has had severe mood problems since he was 12 years old, when his father by accidental overdose on drugs. In addition to chronic depression, he has periods of hyperactivity and severe insomnia. Focus and concentration are poor. No psychosis unless he is sleep-deprived. Not taking medicine regularly. Crashed into some mail boxes in a half-hearted suicide attempt. He has made two previous attempts. No substance abuse outside of cannabis (medical card). 01-15-2023: Abel is feeling about the same as yesterday. He remains depressed but he denies suicidal thoughts today. He thinks he may be a little calmer after the increase in Abilify to 5 mg. No side effects. Plan: Admit to inpatient psychiatry for patient safety and stabilization Suicide precautions Continue Abilify 5 mg at bedtime and Lexapro 20 mg PRN medications for agitation, insomnia and anxiety Individual and group therapies Internal medicine consult Milieu consult for collateral information and discharge planning 01-16-2023: Patient reports he is still feeling tired and down but not as compared to yesterday. Patient has appropriately engaged with staff and peers and is attending his groups and taking care of his ADLs. He is not withdrawn or isolated. He is tolerating the increase in Abilify well. Patient endorses his thoughts are still racing and he is distractible. Patient understands that he has been impulsive and has difficulty managing his emotions. Patient is aware that he has legal issues awaiting with his court date on 01/18/2023. Patient denies any active or passive suicidal ideation today. Patient is sleeping better. Still struggling with his energy and motivation. Still feeling helpless and worthless but denies any feelings of hopelessness Increase Abilify to 10 mg p.o. daily Reduce Lexapro to 10 mg p.o. daily Start lamotrigine 25 mg p.o. daily. Hunter-Juvencio's rash was discussed. Patient to monitor for rash/fever 01-17-2023: Patient is feeling less tired as compared to yesterday. He feels less depressed and denies feeling irritable today. He is not displaying any psychomotor agitation. Impulse control is fair. He reports reduced racing thoughts and is less distractible. Anxiety distress is moderate. Patient slept 8 hours last night. Still his energy and motivation is not where he would like it to be but overall he feels better. He is feels significantly less hopeless as compared to the time of his hospitalization. He denies suicidal ideation. Appetite is fair. Increase Abilify to 50 mg p.o. daily Continue Lexapro 10 mg p.o. daily Continue lamotrigine 25 mg p.o. daily 01/18/2023: Patient is a brief but beneficial stay. Patient responded well to medication management as well as psychotherapeutic interventions provided on the unit. By the time of discharge patient was reported he was feeling significantly better and denied feeling irritable or sad. He reports improved energy and motivation and was not feeling tired or drowsy. Sleep quality and quantity is fair. Appetite is within normal limits. He is not endorsing any racing thoughts or flight of ideas or distractibility at discharge attention span and concentration is fair. Motor activity is within normal limits. He denied any ongoing feelings of hopelessness or active or passive suicidal ideation at the time of discharge. Impulse control is fair at discharge. He was discharged home in fair condition. Consults placed Procedures Inpatient consult to Behavioral Health Emergency Department consult to Psych - Component Design Engineer Hospitalize Patient To : Inpatient consult to Hospitalist Allergies Patient has no known allergies. Procedures performed No orders of the defined types were placed in this encounter. Other tests No orders of the defined types were placed in this encounter. Studies pending at discharge None Laboratory Results: Results from last 7 days Lab Units 01/14/23 0643 SODIUM mmol/L 144 POTASSIUM mmol/L 3.5 CHLORIDE mmol/L 111* BUN mg/dL 13 CREATININE mg/dL 0.88 ALTR U/L 16 AST U/L 8 ALK PHOS U/L 52* TOTAL PROTEIN g/dL 6.6 GLUCOSE mg/dL 90 CALCIUM mg/dL 9.4 Results from last 7 days Lab Units 01/14/23 0643 WBC K/mcL 5.77 HGB g/dL 13.0* HCT % 38.4* PLT K/mcL 156 Lab Results Component Value Date CHOL 103 01/14/2023 HDL 48 01/14/2023 LDLCALC 37 01/14/2023 TRIG 89 01/14/2023 No results found for: HGBA1C Lab Results Component Value Date TSH 0.50 01/14/2023 Review of Systems: Constitutional:No fever, no weight loss Eyes:No diplopia ENT:No sinus drainage CV:No chest pain. No ankle swelling Resp:No dyspnea. No wheezing GI:No abdominal pain.No abdominal distention :No dysuria Neuro:No headache Integumentary:No skin rash MuscSkel:No arthralgias Endo:No polyuria Heme/lymphatic:No apparent lymphadenopathy Allergic/Immunologic:No hives Mental Status Evaluation: General Appearance & Behavior: age appropiate, pleasant, cooperative, and good eye contact Grooming & Hygiene: Fair hygiene and grooming Psychomotor Activity: no psychomotor abnormalities or muscle atrophy noted Gait & Station stable gait and ability to rise from bed/chair without assistance Speech: normal rate, rhythym, volume, and spontaneity Flow of Thought: linear and goal directed Thought Associations: Intact Content of Thought: No evidence of suicidal ideations/homicidal ideations/psychosis Mood: Better Affect: Pleasant and full range Insight: fair Judgment: Improved Orientation: alert and oriented to person, place, time, and circumstances Memory: intact recent and remote Attention: adequate Concentration: Fair Language: intact Fund of Knowledge: estimated average intelligence Discharge Information PRINCIPAL DIAGNOSIS at Discharge: Bipolar affective disorder, depressed, severe (HCC) Discharge Medications: Medication List START taking these medications lamoTRIgine 25 MG tablet Commonly known as: LAMICTAL 1 daily X 11 days and than 2 daily times X 2wks and than 4 daily thereafter. Watch for rash/fever Start: 01/19/23. Start taking on: January 19, 2023 nicotine polacrilex 2 mg gum Commonly known as: NICORETTE Apply 1 (one) each to 2 (two) each (2-4 mg total) to the mouth or throat every 2 (two) hours as needed for smoking cessation . CHANGE how you take these medications ARIPiprazole 15 MG tablet Commonly known as: ABILIFY Take 1 (one) tablet (15 mg total) by mouth nightly . What changed: medication strength how much to take when to take this CONTINUE taking these medications escitalopram oxalate 10 MG tablet Commonly known as: LEXAPRO Take 1 (one) tablet (10 mg total) by mouth daily . STOP taking these medications cloNIDine HCL 0.1 MG tablet Commonly known as: CATAPRES Where to Get Your Medications These medications were sent to [facility]/pharmacy #[id number] AT INTERSECTION OF [address] [address] ARIPiprazole 15 MG tablet escitalopram oxalate 10 MG tablet lamoTRIgine 25 MG tablet nicotine polacrilex 2 mg gum This patient is being discharged on one antipsychotic. Diagnostic work up including: BMI, blood pressure, hemoglobin A1c or blood glucose, and lipid panel have been completed in the past year performed within [facility] and available in EPIC. Glucose <126mg/dL, no indication of impaired glucose tolerance or insulin resistance in fasting or nonfasting state. Tobacco cessation medication ordered for patient at this time. Disposition: Home Follow Up: [facility] [address] [address] Go in 1 month(s) *FOR A NEW FAMILY DOCTOR: WALK IN CLINIC HELD DAILY: M-F 8-4 & SAT. 8-5* Guanako Shepherd CNP [address] [facility] [address] Go on 01/27/2023 Appt already listed on AVS: 01/27/23 at 3:30 pm with Guanako Shepherd CNP, for med management PLEASE CALL TO RESCHEDULE IF UNABLE TO MAKE APPT Discharge Diet: Resume home diet Additional Information: Provider(s): Primary Care: No, Physician Phone: None Address: [facility] To contact Rafal Trevino MD or diet consultant physician, call [phone] ([place]) for 24 hour/7 day for emergencies related to inpatient stay or to obtain results of studies pending at discharge. Patient instructions, including activity, were given to the patient/family at discharge. Please see the After Visit Summary in the medical record for details. Time spent on discharge: > 30 minutes Completed by: Rafal Trevino on 01/18/23, 12:22 PM documented in this encounter [facility] 01-18-2023 History of Present illness Narrative Dr. Trevino to discharge patient home today. Follow-[facility] with [facility] provider of care has mutual access to the [email or web address] therefore AVS not faxed. Safety Plan already completed. He denies any SI, HI, hallucinations, or further discharge needs. He has transportation home to a safe environment. Case closed. Time in Group: 40 - 0 Goal: Pt shares he is feeling relieved because I am heading home today. His goal for today is to start fresh. Steps include take accountability for my mistakes, communicate how I am feeling and what I need, put my words into actions. Goal is important because it is long overdo. Life Skills: Group had a round table discussion in regards to dealing with worry/anxiety. Pt shares that he has been with his girlfriend constantly for the past year is now finding himself running/pulling away. Talked about the importance of healthy boundaries in relationships and qualities that are needed. Pt receptive to feedback and motivated to make positive changes. Awoke per self. Obtained breakfast tray and is eating in the lounge. 0834 Up in the hallway, having used the phone. States slept eh. Could have been better. The beds are hard. Denies pain. States appetite was good. Denies any thoughts of suicide or self harm and agrees to come to staff if feels unsafe to self. Denies any depression and rates his anxiety at a 4/10. Is thankful that he may be discharged today and says he feels ready to go. Says he has a court date to get ready for and a dog at home that he misses. Describes his dog as a long-haired Morrison Retriever, [place] mix, named Max. 0900 Up Walking in the hallway. 1000 To scheduled therapy group. 1132 Discharge teaching completed, voicing understanding. Phoned girlfriend for transportation. Provided with AVS and Return to work slip. 1146 Discharged home with belongings including safe items in care of girlfriend. RN walked him through front entrance to meet her. Pt thanked RN by name, smiling. 1930: Patient is in lounge watching tv with peers, visitor just left. 1999: Patient having drink and snack in lounge, talking to peer, watching a movie. Mood is good. Denies SI, not anxious, but feels saying I am anxious to go home if that counts. He says he feels ready to go home, more forward thinking. He says he struggled with sleep last night, felt like he tossed and turned. He would like to try trazodone tonight. 2029: Patient showered. Appropriate with hygiene supplies. 2104: Patient up to nurse station for medication and trazodone. He goes into room to lay down. 2200: Patient resting in bed quietly, eyes closed, respirations even and unlabored. 2300: Patient is resting in bed quietly, eyes closed, respirations even and unlabored. 0000: Patient is resting quietly in bed, eyes closed, respirations even and unlabored. 0100: Patient up to use restroom. 0200: Patient resting quietly, even respirations. 0400: Patient is resting quietly in bed, eyes closed, respirations even and unlabored. 0600: Patient is resting in bed quietly, eyes closed, respirations even and unlabored. Pt slept 8 hours so far. Psychiatry Progress Note Patient Name: Abel Benitez Admit Date: 6290819 MR #: [id number] : 2000 Perpetual Assessment Abel Benitez is a 22 y.o. male presenting with unstable mood and suicidal ideation. Diagnosis & Plan/Recommendations PRINCIPAL DIAGNOSIS: Bipolar affective disorder, depressed, severe (HCC) * Bipolar affective disorder, depressed, severe (HCC) Assessment & Plan A: Abel is a 22 year old male who has had severe mood problems since he was 12 years old, when his father by accidental overdose on drugs. In addition to chronic depression, he has periods of hyperactivity and severe insomnia. Focus and concentration are poor. No psychosis unless he is sleep-deprived. Not taking medicine regularly. Crashed into some mail boxes in a half-hearted suicide attempt. He has made two previous attempts. No substance abuse outside of cannabis (medical card). 01-15-2023: Abel is feeling about the same as yesterday. He remains depressed but he denies suicidal thoughts today. He thinks he may be a little calmer after the increase in Abilify to 5 mg. No side effects. 01-16-2023: Patient reports he is still feeling tired and down but not as compared to yesterday. Patient has appropriately engaged with staff and peers and is attending his groups and taking care of his ADLs. He is not withdrawn or isolated. He is tolerating the increase in Abilify well. Patient endorses his thoughts are still racing and he is distractible. Patient understands that he has been impulsive and has difficulty managing his emotions. Patient is aware that he has legal issues awaiting with his court date on 01/18/2023. Patient denies any active or passive suicidal ideation today. Patient is sleeping better. Still struggling with his energy and motivation. Still feeling helpless and worthless but denies any feelings of hopelessness 01-17-2023: Patient is feeling less tired as compared to yesterday. He feels less depressed and denies feeling irritable today. He is not displaying any psychomotor agitation. Impulse control is fair. He reports reduced racing thoughts and is less distractible. Anxiety distress is moderate. Patient slept 8 hours last night. Still his energy and motivation is not where he would like it to be but overall he feels better. He is feels significantly less hopeless as compared to the time of his hospitalization. He denies suicidal ideation. Appetite is fair. Plan: Admit to inpatient psychiatry for patient safety and stabilization Suicide precautions Continue Abilify to 15 mg p.o. daily Continue Lexapro to 10 mg p.o. daily Continue lamotrigine 25 mg p.o. daily. Patient to monitor for rash/fever. Hunter-Juvencio's rash was discussed. PRN medications for agitation, insomnia and anxiety Individual and group therapies Internal medicine consult Milieu SW consult for collateral information and discharge planning Comorbid issues impacting my care plan include non-adherence and substance use. Following for depressed mood, unstable mood, suicidal ideation Interval History: Charts were reviewed, updates obtained from designated nursing staff and psychologist social. Patient was interviewed and discussed in treatment team. Patient reports he is feeling less down and depressed and less tired as compared to yesterday. Still his motivation and energy is not where he would like it to be but he feels mildly improved as compared to yesterday. Patient reports reduced racing thoughts and is less distractible. He is feeling less hopeless and denied any active or passive suicidal ideation today. He has not made any threats or gestures of self-harm. ADLs are fair. He reports moderate anxiety distress. He denies any irritability. Impulse control has been fair. He has not made any threats of harming others. He has not been violent or aggressive. Review of Systems: Constitutional, cardiac, pulmonary, neurologic, musculoskeletal, GI, and systems reveiwed and negative except as noted above Physical Examination: Vital Signs: BP 105/60 (BP Location: Right arm, Patient Position: Sitting) Pulse (!) 58 Temp 97.9 F (36.6 C) (Oral) Resp 16 Ht 6' 3 Wt 74.8 kg (165 lb) SpO2 98% BMI 20.62 kg/m Mental Status Evaluation: General Appearance & Behavior: age appropriate, pleasant, cooperative, good eye contact Grooming & Hygiene: street clothes adequate hygiene Psychomotor Activity: no psychomotor abnormalities or muscle atrophy noted Gait & Station stable gait and ability to rise from bed/chair without assistance Speech: Normal rate and tone Flow of Thought: Reduced racing thoughts Thought Associations: Intact Content of Thought: No evidence of SI/HI Mood: Okay Affect: Restricted Insight: Adequate Judgment: Adequate Orientation: alert and oriented to person, place, time, and circumstances Memory: intact recent and remote Attention: Less distractible Concentration: Adequate Language: fluent Fund of Knowledge: estimated average intelligence Laboratory and Additional Data Reviewed: Laboratory 01/17/23 1:00 PM Medications 01/17/23 1:00 PM Transcriptions 01/17/23 1:00 PM Treatment options and alternatives reviewed with patient. Risks, benefits, side effects of all psychiatric medications discussed with patient and informed consent obtained. All questions were answered. Rafal Trevino MD 01/17/2023 1:00 PM Has been quietly sitting in the lounge , watching tv with male peer. Now obtaining breakfast tray and returning to the [facility] to eat. RN introduced self . Was polite and soft spoken, maintaining appropriate eye contact and denying any needs at this time. 0806 Returned to his room/bed. States didn't sleep well last night and woke up around 4 AM. VS obtained. Describes mood as Tired. Denies feeling depressed and rates anxiety at a level 3/10. Denies feeling suicidal and agrees to come to staff if feels unsafe to self. Affect dull. Spoke of being unhappy living in [place]. He enjoys camping and being outdoors. 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 0859 In the dining area looking at a picture book. Shared that would like to travel. AM medications reviewed before taking. Med compliant. Checked for pill taking. 0946 1:[address] Trevino. 1140 Awakened from nap for lunch. [facility]. 1215 Resting quietly in bed. 1630 Participated in Nursing group, receiving , completing and reviewing handout entitled, My Strengths and Qualities. 1640 Eating supper in the lounge. 1745 Reading in the dining area. 1800 Female visitor here. 1930: Patient is in lounge watching tv, visitor just left. He is calm, quiet, cooperative. 1999: Patient having drink and snack in lounge with peers. 2030: Pt up to nurse station for medication. He reports feeling ok rates anxiety 10. Educated pt on anxiety, panic attacks, coping skills, medications. Pt verbalized understanding. Given hydroxyzine with Abilify. Discussed changes to Abilify from 10mg to 15mg. He was given the 5mg earlier this evening, called for order to administer 10mg tonight and proceed with 15mg at bedtime tomorrow. Pt verbalized understanding. Educated on medications, pt says he used to be on trazodone but it made him so tired he wet the bed because he couldn't wake up to use restroom. 2100: Pt completed HS hygiene routine and went to bed. He denies further needs or concerns. Visitor brought him clothing, they were placed in washer. 2200: Patient is resting in bed quietly, eyes closed, respirations even and unlabored. 0000: Patient is resting quietly in bed, eyes closed, respirations even and unlabored. 0200: Patient is resting in bed quietly, eyes closed, respirations even and unlabored. 0400: Patient resting quietly, eyes closed, respirations even and unlabored. 0600: Patient resting in bed quietly, eyes closed, respirations even and unlabored. He slept about 8 hours so far. Unstable mood anPsychiatry Progress Note Patient Name: Abel Benitez Admit Date: [id number] MR #: [id number] : 2000 Perpetual Assessment Abel Benitez is a 22 y.o. male presenting with unstable mood and suicidal ideation. Diagnosis & Plan/Recommendations PRINCIPAL DIAGNOSIS: Bipolar affective disorder, depressed, severe (HCC) * Bipolar affective disorder, depressed, severe (HCC) Assessment & Plan A: Abel is a 22 year old male who has had severe mood problems since he was 12 years old, when his father by accidental overdose on drugs. In addition to chronic depression, he has periods of hyperactivity and severe insomnia. Focus and concentration are poor. No psychosis unless he is sleep-deprived. Not taking medicine regularly. Crashed into some mail boxes in a half-hearted suicide attempt. He has made two previous attempts. No substance abuse outside of cannabis (medical card). 01-15-2023: Abel is feeling about the same as yesterday. He remains depressed but he denies suicidal thoughts today. He thinks he may be a little calmer after the increase in Abilify to 5 mg. No side effects. 01-16-2023: Patient reports he is still feeling tired and down but not as compared to yesterday. Patient has appropriately engaged with staff and peers and is attending his groups and taking care of his ADLs. He is not withdrawn or isolated. He is tolerating the increase in Abilify well. Patient endorses his thoughts are still racing and he is distractible. Patient understands that he has been impulsive and has difficulty managing his emotions. Patient is aware that he has legal issues awaiting with his court date on 01/18/2023. Patient denies any active or passive suicidal ideation today. Patient is sleeping better. Still struggling with his energy and motivation. Still feeling helpless and worthless but denies any feelings of hopelessness Plan: Admit to inpatient psychiatry for patient safety and stabilization Suicide precautions Increase Abilify to 10 mg p.o. daily Reduce Lexapro to 10 mg p.o. daily Start lamotrigine 25 mg p.o. daily. Patient to monitor for rash/fever. Hunter-Juvencio's rash was discussed. PRN medications for agitation, insomnia and anxiety Individual and group therapies Internal medicine consult Milieu consult for collateral information and discharge planning Comorbid issues impacting my care plan include non-adherence and substance use. Following for depressed mood, unstable mood, suicidal ideation Interval History: Charts were reviewed, updates obtained from designated nursing staff and psychologist social. Patient was interviewed and discussed in treatment team. Patient reported he still feeling tired and struggling with low energy and low motivation. He is making efforts to attend his groups and engage appropriately. He is not isolated or withdrawn. Patient reports he still has increasing anxiety. Patient acknowledges that he has been impulsive and unable to manage his emotions. He is somewhat anxious about his legal problems and has a court date in 2 days. Patient is still feeling helpless and worthless but reports decreased feelings of hopelessness denied any active or passive suicidal ideation today. He has not been any threats or gestures of self-harm. While he has not hospitalized his impulse control has been fair. ADLs are fair. He has not been aggressive or violent. Review of Systems: Constitutional, cardiac, pulmonary, neurologic, musculoskeletal, GI, and systems reveiwed and negative except as noted above Physical Examination: Vital Signs: BP (!) 112/56 Pulse 60 Temp 97.5 F (36.4 C) (Oral) Resp 14 Ht 6' 3 Wt 74.8 kg (165 lb) SpO2 100% BMI 20.62 kg/m Mental Status Evaluation: General Appearance & Behavior: age appropriate, pleasant, cooperative, good eye contact Grooming & Hygiene: street clothes adequate hygiene Psychomotor Activity: no psychomotor abnormalities or muscle atrophy noted Gait & Station stable gait and ability to rise from bed/chair without assistance Speech: Normal rate and tone Flow of Thought: Racing thoughts Thought Associations: Intact Content of Thought: No evidence of SI/HI Mood: Tired Affect: Restricted Insight: Adequate Judgment: Adequate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 for back pain. Skin: Negative for rash. Neurological: Positive for syncope. Negative for dizziness, tremors, seizures, facial asymmetry, speech difficulty, weakness, light-headedness, numbness and headaches. Psychiatric/Behavioral: Negative for confusion. All other systems reviewed and are negative. Past Medical History: Past Medical History: Diagnosis Date Syncope Past Surgical History: No past surgical history on file. Allergies: No Known Allergies Medications: Patient's Medications No medications on file Family History: History reviewed. No pertinent family history. Social History: Social History Socioeconomic History Marital status: Single Spouse name: Not on file Number of children: Not on file Years of education: Not on file Highest education level: Not on file Occupational History Not on file Tobacco Use Smoking status: Never Smokeless tobacco: Never Vaping Use Vaping Use: Never used Substance and Sexual Activity Alcohol use: Not Currently Drug use: Yes Frequency: 7.0 times per week Types: Other, Marijuana Comment: THC edible at night for sleep Sexual activity: Yes Other Topics Concern Not on file Social History Narrative Not on file Social Determinants of Health Financial Resource Strain: Not on file Food Insecurity: Not on file Transportation Needs: Not on file Physical Activity: Not on file Stress: Not on file Social Connections: Not on file Intimate Partner Violence: Not on file Housing Stability: Not on file Physical Exam: Physical Exam Vitals and nursing note reviewed. Constitutional: General: He is not in acute distress. HENT: Head: Normocephalic and atraumatic. Right Ear: Tympanic membrane normal. Left Ear: Tympanic membrane normal. Nose: Nose normal. Mouth/Throat: Pharynx: Uvula midline. Eyes: General: No scleral icterus. Right eye: No discharge. Left eye: No discharge. Conjunctiva/sclera: Conjunctivae normal. Pupils: Pupils are equal, round, and reactive to light. Neck: Thyroid: No thyromegaly. Vascular: No JVD. Cardiovascular: Rate and Rhythm: Normal rate and regular rhythm. Heart sounds: Normal heart sounds. No murmur heard. Pulmonary: Effort: Pulmonary effort is normal. No respiratory distress. Breath sounds: Normal breath sounds. Abdominal: General: Bowel sounds are normal. Palpations: Abdomen is soft. Tenderness: There is no abdominal tenderness. Musculoskeletal: General: Normal range of motion. Right hand: Normal. Normal strength. Left hand: Normal. Normal strength. Cervical back: Normal range of motion and neck supple. Right lower leg: Normal. No swelling. No edema. Left lower leg: Normal. No swelling. No edema. Skin: General: Skin is warm. Findings: No rash. Neurological: General: No focal deficit present. Mental Status: He is alert and oriented to person, place, and time. GCS: GCS eye subscore is 4. GCS verbal subscore is 5. GCS motor subscore is 6. Cranial Nerves: Cranial nerves 2-12 are intact. No cranial nerve deficit, dysarthria or facial asymmetry. Sensory: Sensation is intact. No sensory deficit. Motor: Motor function is intact. Coordination: Coordination is intact. Gait: Gait is intact. Deep Tendon Reflexes: Reflexes are normal and symmetric. Reflex Scores: Patellar reflexes are 2+ on the right side and 2+ on the left side. Vital Signs During ED Visit Patient Vitals for the past 24 hrs: BP Temp Temp src Pulse Resp SpO2 Weight 12/30/22 0104 -- 97.8 F (36.6 C) Oral -- -- -- 82.2 kg (181 lb 4.8 oz) 12/30/22 0101 98/58 -- -- (!) 42 16 97 % -- Orders/Results: No orders of the defined types were placed in this encounter. No results found for this or any previous visit. Radiographic Imaging No orders to display Procedures: Procedures Moderate Sedation Procedure: No Medications Ordered/Given During ED Visit Medications - No data to display Medical Decision Making Vasovagal episode. He stable. No neuro findings. An related without difficulty. Discharge. Clinical Impression: 1. Vasovagal episode Acute No follow-ups on file. New Prescriptions No medications on file Discontinued Medications No medications on file An After Visit Summary was printed and given to the patient with above information. Pina Cobos DO 12/30/22 0140 documented in this encounter [facility] 12-30-2022 Hospital Discharge instructions Pina Cobos DO - 12/30/2022 1:33 AM EDT Thank you for allowing us to be involved in your care today. Please follow up as discussed during your stay. This information is included in your discharge paperwork. Appropriate follow up is essential in your continued care after today's visit. If you had any diagnostic studies (Labs, X-rays, CT-scan , Ultrasound or Cultures) have your Primary Care Physician (PCP) review them with you since there may be results that require further follow up or investigation. Return to the Emergency Department at any point with worsening conditions or concerns. The physician and staff of the Emergency Department would like to thank you for choosing our facility for your health care needs. Our goal is to provide exceptional service. You may be receiving a survey in the mail following your visit. Because your feedback is very important to us, we hope you will take the time to complete and return the survey. If for any reason, you feel that you cannot rate us Very Good or 5 for the service you received today, please let us know prior to your discharge. Please follow up with your family doctor or one of your choosing. You may find a provider through the [facility] Physician Referral Service by calling [phone] or by visiting [email or web address] Thank You for choosing the [facility] Emergency Department! The following attachments cannot be sent through Care Everywhere.Vasovagal Syncope (Tajik)documented in this encounter [facility] 12-30-2022 Emergency department Note This RN was triaging another pt while this pt was in the room as a visitor. The pt was sitting in the chair, started to slump over in chair and against sink, dystonia of bilat hands and wrists. Pt was then moved by this Rn and another RN from chair to bed, laid face down. Pt then became alert, recited medications that pt took, name and . No episodes of vomiting, no loss of bladder control. Pt then moved to RM 6 in pt ED cot. [facility] 12-30-2022 Physician Emergency department Note Emergency Department Report [facility] EMERGENCY DEPARTMENT Service Date:.12/30/22 PCP: No primary care provider on file. Chief Complaint: Chief Complaint Patient presents with Syncope Pt visitor- brief episode of syncope, pt very pale upon being transported to bed 6. Per patient, this has been happening for 2 weeks now, I'm not sure, I haven't had time to follow up about it. Upon entering room patient is bradycardic (42 is palpated pulse)-provider notified, no further orders. KLEBER Benitez is a 22 y.o. male presents to the ED today due to Vasovagal episode while in the emergency department with his girlfriend. He was concerned she was going to be so he says he ever worked up and passed out. He had a vasovagal episode in front of the nursing staff as well as me. No postictal state. No loss of bowel or bladder. He was immediately alert and aware with no postictal state. He has no other complaints currently. Review of Systems: Review of Systems Constitutional: Negative for chills and fever. HENT: Negative for congestion, sore throat, trouble swallowing and voice change. Eyes: Negative for discharge and visual disturbance. Respiratory: Negative for cough and shortness of breath. Cardiovascular: Negative for chest pain and leg swelling. Gastrointestinal: Negative for abdominal pain, nausea and vomiting. Genitourinary: Negative for dysuria. Musculoskeletal: Negative for back pain. Skin: Negative for rash. Neurological: Positive for syncope. Negative for dizziness, tremors, seizures, facial asymmetry, speech difficulty, weakness, light-headedness, numbness and headaches. Psychiatric/Behavioral: Negative for confusion. All other systems reviewed and are negative. Past Medical History: Past Medical History: Diagnosis Date Syncope Past Surgical History: No past surgical history on file. Allergies: No Known Allergies Medications: Patient's Medications No medications on file Family History: History reviewed. No pertinent family history. Social History: Social History Socioeconomic History Marital status: Single Spouse name: Not on file Number of children: Not on file Years of education: Not on file Highest education level: Not on file Occupational History Not on file Tobacco Use Smoking status: Never Smokeless tobacco: Never Vaping Use Vaping Use: Never used Substance and Sexual Activity Alcohol use: Not Currently Drug use: Yes Frequency: 7.0 times per week Types: Other, Marijuana Comment: THC edible at night for sleep Sexual activity: Yes Other Topics Concern Not on file Social History Narrative Not on file Social Determinants of Health Financial Resource Strain: Not on file Food Insecurity: Not on file Transportation Needs: Not on file Physical Activity: Not on file Stress: Not on file Social Connections: Not on file Intimate Partner Violence: Not on file Housing Stability: Not on file Physical Exam: Physical Exam Vitals and nursing note reviewed. Constitutional: General: He is not in acute distress. HENT: Head: Normocephalic and atraumatic. Right Ear: Tympanic membrane normal. Left Ear: Tympanic membrane normal. Nose: Nose normal. Mouth/Throat: Pharynx: Uvula midline. Eyes: General: No scleral icterus. Right eye: No discharge. Left eye: No discharge. Conjunctiva/sclera: Conjunctivae normal. Pupils: Pupils are equal, round, and reactive to light. Neck: Thyroid: No thyromegaly. Vascular: No JVD. Cardiovascular: Rate and Rhythm: Normal rate and regular rhythm. Heart sounds: Normal heart sounds. No murmur heard. Pulmonary: Effort: Pulmonary effort is normal. No respiratory distress. Breath sounds: Normal breath sounds. Abdominal: General: Bowel sounds are normal. Palpations: Abdomen is soft. Tenderness: There is no abdominal tenderness. Musculoskeletal: General: Normal range of motion. Right hand: Normal. Normal strength. Left hand: Normal. Normal strength. Cervical back: Normal range of motion and neck supple. Right lower leg: Normal. No swelling. No edema. Left lower leg: Normal. No swelling. No edema. Skin: General: Skin is warm. Findings: No rash. Neurological: General: No focal deficit present. Mental Status: He is alert and oriented to person, place, and time. GCS: GCS eye subscore is 4. GCS verbal subscore is 5. GCS motor subscore is 6. Cranial Nerves: Cranial nerves 2-12 are intact. No cranial nerve deficit, dysarthria or facial asymmetry. Sensory: Sensation is intact. No sensory deficit. Motor: Motor function is intact. Coordination: Coordination is intact. Gait: Gait is intact. Deep Tendon Reflexes: Reflexes are normal and symmetric. Reflex Scores: Patellar reflexes are 2+ on the right side and 2+ on the left side. Vital Signs During ED Visit Patient Vitals for the past 24 hrs: BP Temp Temp src Pulse Resp SpO2 Weight 12/30/22 0104 -- 97.8 F (36.6 C) Oral -- -- -- 82.2 kg (181 lb 4.8 oz) 12/30/22 0101 98/58 -- -- (!) 42 16 97 % -- Orders/Results: No orders of the defined types were placed in this encounter. No results found for this or any previous visit. Radiographic Imaging No orders to display Procedures: Procedures Moderate Sedation Procedure: No Medications Ordered/Given During ED Visit Medications - No data to display Medical Decision Making Vasovagal episode. He stable. No neuro findings. An related without difficulty. Discharge. Clinical Impression: 1. Vasovagal episode Acute No follow-ups on file. New Prescriptions No medications on file Discontinued Medications No medications on file An After Visit Summary was printed and given to the patient with above information. Pina Cobos DO 12/30/22 0140 [facility] 03-18-2022 History of Present illness Narrative This [employer] manager of employee relations attempted to contact patient regarding referral to [facility] program placed by PCP at request of [employer]. The patient did not answer. Left voice mail message at patient's contact number with request for return call. THIRD and FINAL attempt. [phone] Behavioral Health Screenings: JACY-7 02/24/2022 JACY-7 Score 18 PHQ-9 02/24/2022 PHQ-9 Total Score 19 documented in this encounter [facility] 02-25-2022 History of Present illness Narrative This [employer] manager of employee relations attempted to contact patient regarding referral to [facility] program placed by PCP at request of [employer]. The patient did not answer. Left voice mail message at patient's contact number with request for return call. First attempt. [phone] Behavioral Health Screenings: JACY-7 02/24/2022 JACY-7 Score 18 PHQ-9 02/24/2022 PHQ-9 Total Score 19 documented in this encounter [facility] 02-24-2022 Evaluation + Plan note Associated Problem(s): Anxiety and depression Ordered prozac 10mg Referral placed for [facility] 02-24-2022 Miscellaneous Notes Associated Problem(s): Anxiety and depression Ordered prozac 10mg Referral placed for [employer] documented in this encounter [facility] 02-24-2022 Instructions Latoya Chambers MD - 02/24/2022 12:05 PM EDT [id number] Suicide crisis hotline documented in this encounter [facility] 02-24-2022 History of Present illness Narrative OFFICE VISIT PROGRESS NOTE HPI Abel Benitez is here to establish care Complains of anxiety and depression Interested medication and counseling Thinks he has Restless Leg Syndrome Also thinks he has aspergers as he thinks he has issues with social cues No suicidal ideation or homicidal ideation Previously tried lexapro, zoloft, and prozac The following portions of the patient's history were reviewed and updated as appropriate: allergies, current medications and problem list. The patient's surgical, family, and social history was reviewed and updated as appropriate. Review of Systems Constitutional: Negative for chills and fever. HENT: Negative for congestion and sore throat. Eyes: Negative for visual disturbance. Respiratory: Negative for cough. Gastrointestinal: Negative for abdominal pain, constipation and diarrhea. Musculoskeletal: Negative for back pain and myalgias. Skin: Negative for rash and wound. Neurological: Negative for dizziness, weakness and headaches. Psychiatric/Behavioral: Negative for sleep disturbance. The patient is nervous/anxious and depression. Vitals: 02/24/22 1155 BP: 98/63 BP Location: Right arm Patient Position: Sitting BP Cuff Size: X-large Adult Pulse: 65 SpO2: 95% Weight: 92.9 kg (204 lb 11.2 oz) Height: 6' 2 Body mass index is 26.28 kg/m . Physical Exam Vitals and nursing note reviewed. Constitutional: Appearance: Normal appearance. HENT: Head: Normocephalic and atraumatic. Nose: Nose normal. No congestion. Mouth/Throat: Mouth: Mucous membranes are moist. Eyes: Conjunctiva/sclera: Conjunctivae normal. Cardiovascular: Rate and Rhythm: Normal rate and regular rhythm. Pulses: Normal pulses. Pulmonary: Effort: Pulmonary effort is normal. No respiratory distress. Breath sounds: Normal breath sounds. Abdominal: General: Abdomen is flat. Palpations: Abdomen is soft. Skin: General: Skin is warm. Neurological: General: No focal deficit present. Mental Status: She is alert. Gait: Gait normal. Psychiatric: Mood and Affect: Mood normal. Behavior: Behavior normal. Thought Content: Thought content normal. Judgment: Judgment normal. OARRS/NARxCHECK Report Received and Assessed: No data found Date controlled substance agreement signed: No data found Date of last drug screen: No data found Functional Assessment: No data found Assessment/Plan Problem List Items Addressed This Visit Other Anxiety and depression Ordered prozac 10mg Referral placed for [facility] Relevant Medications FLUoxetine (PROZAC) 10 MG capsule Other Relevant Orders Ambulatory Ref to [facility] Regional Engineer Encounter to establish care - Primary Return in about 2 weeks (around 03/10/2022) for anxiety and depression. If any referrals were placed at today's visit the patient was instructed to call the office if they haven't heard anything about the referral within 2 weeks of today's visit. For any new medications prescribed today, patient was educated about indications for the medication, how to take the medication and potential side effects of the medications. Depression Screening 02/24/2022 Little interest or pleasure in doing things 2 Feeling down, depressed, or hopeless 2 PHQ-2 Total Score 4 Trouble falling or staying asleep, or sleeping too much 3 Feeling tired or having little energy 3 Poor appetite or overeating 0 Feeling bad about yourself - or that you are a failure or have let yourself or your family down 3 Trouble concentrating on things, such as reading the newspaper or watching television 3 Moving or speaking so slowly that other people could have noticed. Or the opposite - being so fidgety or restless that you have been moving around a lot more than usual 3 Thoughts that you would be better off , or of hurting yourself in some way 0 PHQ-9 Total Score 19 If you checked off any problems, how difficult have these problems made it for you to do your work, take care of things at home, or get along with other people? Very difficult PHQ2 = 4 PHQ9 = 19 GAD7 = 18 documented in this encounter [facility] 11-07-2021 Note Patient Education In structions Name: ABEL BENITEZ Current Date: 11/07/2021 03:44:26 [facility]: [id number] The following sheet(s) are the Patient Education Leaflets for ABEL BENITEZ [facility] Finger Sprain, Adult A finger sprain is a tear or stretch in a ligament in your finger. Ligaments are tissues that connect bones to each other. Follow these instructions at home: If you have a splint: ?? Do not put pressure on any part of the splint until it is fully hardened. This may take many hours. ?? Wear the splint as told by your doctor. Take it off only as told by your doctor. ?? Loosen the splint if your fingers tingle, lose feeling (get numb), or turn cold and blue. ?? Keep the splint clean. ?? If the splint is not waterproof: ? Do not let it get wet. ? Cover it with a watertight covering when you take a bath or a shower. If you have a cast: ?? Do not put pressure on any part of the cast until it is fully hardened. This may take many hours. ?? Do not stick anything inside the cast to scratch your skin. ?? Check the skin around the cast every day. Tell your doctor about any concerns. ?? You may put lotion on dry skin around the edges of the cast. Do not put lotion on the skin under the cast. ?? Keep the cast clean. ?? If the cast is not waterproof: ? Do not let it get wet. ? Cover it with a watertight covering when you take a bath or a shower. Managing pain, stiffness, and swelling ?? If directed, put ice on the injured area: ? If you have a removable splint, take it off as told by your doctor. ? Put ice in a plastic bag. ? Place a towel between your skin and the bag or between your cast and the bag. ? Leave the ice on for 20 minutes, 2?3 times a day. ?? Gently move your fingers often to avoid stiffness and to lessen swelling. ?? Raise (elevate) the injured area above the level of your heart while you are sitting or lying down. Medicines ?? Take xinu-puz-glssqet and prescription medicines only as told by your doctor. ?? Do not drive or use heavy machinery while taking prescription pain medicine. General instructions ?? Keep any bandages (dressings) dry until your doctor says they can be taken off. ?? Do exercises as told by your doctor or physical therapist. ?? Do not wear rings on your injured finger. ?? Keep all follow-up visits as told by your doctor. This is important. Get help right away if: ?? Your pain is not helped by medicine. ?? Your bruising or swelling gets worse. ?? Your splint or cast is damaged. ?? You lose feeling in your finger. ?? Your finger turns blue. ?? Your finger feels colder than normal when you touch it. ?? You have a fever. Summary ?? A finger sprain is a tear or stretch in a ligament in your finger. Ligaments are tissues that connect bones to each other. ?? If you have a splint, loosen the splint if your fingers tingle, lose feeling (get numb), or turn cold and blue. ?? Gently move your fingers often to avoid stiffness and to lessen swelling. ?? If directed, put ice on the injured area. This information is not intended to replace advice given to you by your health care provider. Make sure you discuss any questions you have with your health care provider. Document Revised: 06/15/2018 Document Reviewed: 2017 [employer] Patient Education ? 2020 [employer]. [facility] 10-29-2020 Note CHILD PSYCHIATRY OUT PATIENT PROGRESS NOTE DATE OF SERVICE: 10/29/2020 AGE: 20 y.o. GRADE: [employer], 12th grade. IEP in place. I interviewed the patient and his mother via phone for 20 minutes. This is a telephone evaluation and management service requested by the patient/guardian that was performed with the originating site at home and the distant site at office. This visit occurred during the Coronavirus (COVID-19) Public Health Emergency. An audio/visual visit was not available. Prior to interview patient's electronic medical records and available collateral information were reviewed and incorporated into current note and noted in italics. Patient was informed of the purpose and nature of the interview to take place and the confidentiality boundaries that applied. REASON FOR VISIT: Medication check. SUBJECTIVE: (reported issues and events since last appointment) Abel states I don't have concerns for myself today. Overall, I feel like things are going really good. I graduated in July and I am going to walk for graduation. Reports good energy but lacking motivation for basic chores but with other things it's pretty good. Denies anhedonia. Enjoys hanging out with friends. States I got my licence and a car so I have been driving around a lot. Denies SI/HI/AH/VH. Denies self harm. Hetal states 'I have had any anxiety. Denies feeling restless. Denies panic attacks. Mom states he has been doing very well. He is looking towards future goals. 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 He seem to have a good group of friends. We are very proud me. History of legal involvement as a minor. Previous PO ([facility], [facility]). Sleep: Abel reports sleeping well School Bedtime: Fluctuates, 1-2 AM, up at 8-10 am, varies on weekends . Appetite: Decreased. Eating 2 meals per day. Exercise: so-so, it's been lacking. I go to the gym once per month. Current Risk Level Low Acute Risk: History of past [id number]- or suicidal thoughts;Protective factors outweigh risk factors Patient able to plan for safety: yes Safety education provided to guardian: yes [place] Suicide Severity Rating Scale (C-SSRS) SUICIDAL IDEATION SINCE LAST VISIT 1. Wish to be ? No If yes, describe: 2. Non-Specific Active Suicidal Thoughts: No If yes, describe: 3. Active Suicidal Ideation with Any Methods (Not Plan) without Intent to Act: If yes, describe: 4. Active Suicidal Ideation with Some Intent to Act, without Specific Plan: If yes, describe: 5. Active Suicidal Ideation with Specific Plan and Intent: If yes, describe: INTENSITY OF IDEATION SINCE LAST VISIT Most Severe Ideation: Description of Ideation: Frequency: Duration: Controllability: Deterrents: Reasons for Ideation: SUICIDAL BEHAVIOR SINCE LAST VISIT (Check all that apply, so long as these are separate events; must ask about all types) Actual Attempt: No Total # of Attempts: If yes, describe: Has subject engaged in Non-Suicidal Self-Injurious Behavior? No Interrupted Attempt: No Total # of interrupted: If yes, describe: Aborted or Self-Interrupted Attempt: No Total # of aborted or self-interrupted: If yes, describe: Preparatory Acts or Behavior: No Total # of preparatory acts: If yes, describe: ACTUAL/POTENTIAL LETHALITY SINCE LAST VISIT Most Lethal Attempt Date: Actual Lethality/Medical Damage: Potential Lethality: [email or web address] Peer/Family Relationship: Lives with mom (Giorgio, step-dad (Dave), 15 y/o step-brother (Lb) , 12 y/o step-sister (Abril), and 11 y/o brother (Nico). Abel reports getting along well with family. Biological father is .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 on 01/14/23 at 0311, 5 mg = 1 mL May cause QT interval prolongation. If not already reconstituted, reconstitute 10 mg vial with 2.1 mL sterile water inj. Final concentration = 5 mg/mL. FOR IM USE ONLY. Use within 1 hr., I understand this medication is on National Backorder Shortage and I am using it for one of the resticted indications. Acknowledged OLANZapine (ZYPREXA) tablet 5 mg 5 mg, Oral, Every 6 hours PRN, Agitation, Starting on 01/14/23 at 0309, May cause QT interval prolongation. traZODone (DESYREL) tablet 50 mg 50 mg, Oral, Nightly PRN, sleep, Starting on 01/14/23 at 0136, May repeat once after 30 minutes if still awake. 210 (Given - Provider: Jessica Montelongo, JONO) Scheduled Medication Order 06/28/2023 06/29/2023 06/30/2023 Amoxicillin-clavulanate (AUGMENTIN) 875-125 MG per tablet 1 tablet (COMPLETED) 1 tablet, Oral, ONCE, 1 dose, On Mon06/30/23 at 1200 1144 (Given - Provid er: Radha Saul RN) Ibuprofen (MOTRIN) tablet 600 mg (COMPLETED) 600 mg, Oral, ONCE, 1 dose, On Mon06/30/23 at 1130, Give with food 1144 (Given - Provid er: Radha Saul RN) Scheduled Medication Order 06/29/2023 06/30/2023 07/01/2023 Ondansetron (ZOFRAN-ODT) disintegrating tablet 4 mg (COMPLETED) 4 mg, Oral, ONCE, 1 dose, On 07/01/23 at 1530 1523 (Given - Provid er: Kalie Ochoa RN) oxyCODONE-acetaminophen (PERCOCET) 5-325 MG per tablet 1 tablet (COMPLETED) 1 tablet, Oral, ONCE, 1 dose, On 07/01/23 at 1600, Maximum dose of acetaminophen is 4000 mg from all sources in 24 hours. 1522 (Given - Provid er: Kalie Ochoa RN) Source Comments (unrecognize d section and content) In the event this informatio n is protected by the Federal Confidentiality of Alcohol and Drug Abuse Patient Records regulations: The Federal rules restrict any use of the information to criminally investigate or prosecute any alcohol or drug abuse patient.[facility] FOR RECORDS PERTAINING TO PATIENTS WHO ARE OR HAVE BEEN ENROLLED IN A CHEMICAL DEPENDENCY/SUBSTANCEABUSE PROGRAM, SOME INFORMATION MAY BE OMITTED. This clinical summary was aggregated from multiple sources. Caution should be exercised in using it in the provision of clinical care. This summary normalizes information from multiple sources, and as a consequence, information in this document may materially change the coding, format and clinical context of patient data. In addition, data may be omitted in some cases. CLINICAL DECISIONS SHOULD BE BASED ON THE PRIMARY CLINICAL RECORDS. [employer] [facility]. provides no warranty or guarantee of the accuracy or completeness of information in this document.
[2025-02-19 12:44] LABS: Hematocrit 40.5 % (40-54); Hemoglobin 13.8 g/dL (13.0-16.5); Immature Granulocytes Count 0.020 X10^3/uL (0.0-0.0); Mean Corp Hgb Conc 34.1 g/dL (32-36); Mean Corpuscular Volume 90.8 fL (80-94); Mean Platelet Vol. 10.6 fl (6.2-12.0); NRBC Flagged by Analyzer 0 % (0-5); Platelet Count 198 K/mm3 (150-450); RBC Distribution Width CV 12.6 % (11.6-14.6); RBC Distribution Width SD 42.0 fl (35.1-43.9); Red Blood Count 4.46 M/mm3 (4.6-6.2); White Blood Count 6.0 K/mm3 (4.4-11.0)
[2025-02-19 13:19] LABS: AST(SGOT) 23 U/L (<=37); Alanine Aminotransfer ALT/SGPT 27 U/L (<=46); Albumin, Serum 4.6 g/dL (3.5-5.0); Alkaline Phosphatase 60 U/L (40-129); Anion Gap 11 (5-15); BUN 10 mg/dL (4-19); BUN/Creat Ratio 10.1 RATIO (10-20); Calcium,Total 9.6 mg/dL (7.6-11.0); Carbon Dioxide 24.8 mmol/L (21.0-32.0); Chloride 105 mmol/L (98-108); Globulin 2.2 g/dL (2.2-4.2); Glucose 92 mg/dL (70-99); Potassium 4.1 mmol/L (3.3-5.1)
== END | disposition home or self-care (01) ==
LOC: BFHLAB 09:21
PROVIDERS: PCP Family Medicine; Visit Provider Family Medicine
DX: R55 Syncope and collapse (principal); R00.1 Bradycardia, unspecified
CPT/HCPCS: 36415; 80053; 84439; 84443; 85025

== ENCOUNTER → 2025-03-07 | Outpatient (CLI) | payer OTHER, SELFPAY | END | disposition home or self-care (01) | LOC: PSN 08:30 | PROVIDERS: PCP Family Medicine; Referring Provider Family Medicine; Visit Provider Family Medicine | DX: R55 Syncope and collapse (principal); R00.1 Bradycardia, unspecified | CPT/HCPCS: 93225; 93226 ==

== ENCOUNTER → 2025-03-12 | Outpatient (CLI) | payer OTHER, SELFPAY ==
--- NOTE | 2025-03-12 13:54 | ECHOD_ITS ---
Reason For Study Reason For Study: SYNCOPE/ BRADYCARDIA Left Ventricle Normal LV size. Left ventricular systolic function is normal. No regional wall motion abnormalities noted. Right Ventricle Normal RV size. Normal systolic function. Atria Normal left atrium. Normal right atrium. Bubble contrast study is negative for PFO/ASD. Mitral Valve Normal mitral valve. Tricuspid Valve Normal tricuspid valve. Aortic Valve Normal aortic valve. Pulmonic Valve Normal pulmonic valve. Great Vessels Normal aortic root. The pulmonary artery is normal size. Inferior vena cava collapse with respiration. Pericardium/Pleural No pericardial effusion. Medication 22 gauge I.V. with prn adaptor inserted into right arm. Performed a rapid injection of agitated mix of 9 cc saline and 1cc air to assess for atrial septal defect. MMode/2D Measurements & Calculations LVIDd: 4.9 cm IVSd: 0.94 cm LVOT diam: 2.4 cm LVIDs: 2.9 cm LVPWd: 0.86 cm LVOT area: 4.5 cm2 RVDd: 4.2 cm FS: 40.6 % CO(Teich): 4.3 l/min asc Aorta Diam: 2.7 cm LAV(MOD- bp): 47.4 ml LAV(MOD- bp) Indexed: 20.7 ml/m2 LAV(MOD- sp2): 53.9 ml LAV(MOD- sp4): 38.7 ml CO(MOD- sp4): 2.8 l/min LVAd ap4: 31.0 cm2 LVAd ap2: 31.3 cm2 SV(MOD- sp4): 53.7 ml LVLd ap4: 8.1 cm LVLd ap2: 8.6 cm EDV(MOD-sp4): 95.4 ml EDV(MOD-sp2): 94.2 ml SI(MOD- sp4): 23.5 ml/m2 EDV(sp4-el): 100.2 ml EDV(sp2-el): 96.9 ml LVAs ap4: 18.5 cm2 LVAs ap2: 18.9 cm2 LVLs ap4: 7.1 cm LVLs ap2: 7.2 cm ESV(MOD-sp4): 41.7 ml ESV(MOD-sp2): 42.1 ml ESV(sp4-el): 41.0 ml ESV(sp2-el): 41.7 ml EF(MOD-sp4): 56.3 % EF(MOD-sp2): 55.4 % EF(sp4-el): 59.1 % SV(MOD-sp2): 52.2 ml SV(sp4-el): 59.2 ml Ao sinus diam: 3.4 cm SI(MOD-sp2): 22.8 ml/m2 Ao ST [place]: 2.7 cm LA dimension(2D): 3.4 cm LA A4 area: 15.5 cm2 TAPSE: 1.9 cm RA A4 area: 16.4 cm2 Time Measurements MV dec time: 0.11 sec Doppler Measurements & Calculations MV E max miguel: 72.1 cm/sec Lat Peak E' Miguel: 19.7 cm/sec Med Peak E' Miguel: 15.3 cm/sec MV A max miguel: 51.7 cm/sec E/E' lat: 3.7 E/E' med: 4.7 MV E/A: 1.4 MV dec slope: 636.8 cm/sec2 Ao V2 max: 135.9 cm/sec LV V1 max: 107.7 cm/sec Ao max P.4 mmHg LV V1 max P.6 mmHg Ao V2 mean: 89.3 cm/sec LV V1 mean P.5 mmHg Ao mean P.7 mmHg LV V1 mean: 73.9 cm/sec Ao V2 VTI: 31.6 cm LV V1 VTI: 26.2 cm AV (velocity ratio): 0.83 NEL(I,D): 3.7 cm2 NEL(V,D): 3.6 cm2 CO(LVOT): 6.3 l/min PA V2 max: 109.0 cm/sec PI end-d miguel: 82.3 cm/sec SV(LVOT): 117.2 ml TR max miguel: 209.7 cm/sec TR max P.6 mmHg ECHO/Echo Complete Interpretation Summary Normal LV size. Left ventricular systolic function is normal. Bubble contrast study is negative for PFO/ASD. No regional wall motion abnormalities noted. Ordering Physician: Reza Garza Referring Physician: Reza Garza Performed By: Gabi Candelario RDCS
== END | disposition home or self-care (01) ==
LOC: CVS 13:54
PROVIDERS: PCP Family Medicine; Referring Provider Family Medicine; Visit Provider Family Medicine
DX: R55 Syncope and collapse (principal); R00.1 Bradycardia, unspecified
CPT/HCPCS: 93306; A4216

== ENCOUNTER → 2025-06-25 | Outpatient (CLI) | payer OTHER, SELFPAY ==
--- NOTE | 2025-06-25 12:12 | STEWCON_ITS ---
Reason For Study Reason For Study: Syncope; Chest Pain Stress Results Protocol: Ismael Protocol WITH DEFINITY Maximum Predicted HR: 198 bpm Target HR: 168 bpm % Maximum Predicted HR: 87 % DurationHeart Rate Stage (mm:ss) (bpm) BP Comment Baseline 48 128/72No Chest Pain; 3 ML Diluted Definity Ismael Protocol Stage I 3:00 112 122/64No Chest Pain Ismael Protocol Stage II 3:00 121 134/66No Chest Pain Ismael Protocol Stage III 3:00 153 164/70No Chest Pain Ismael Protocol Stage IV 3:00 173 170/64No Chest Pain Recovery 96 122/78No Chest Pain Stress Duration: 12:00 mm:ss Maximum Stress HR: 173 bpm METS: 13 Baseline Echocardiogram Findings Stress Echo Wall motion Data Resting WM Intermediate WM Stress WM Resting Wall Motion Wall Motion Stress Normal resting wall motion. Estimated All wall segments hyperdynamic post LVEF 60%. exercise. Postexercise LVEF 75%. EKG Data Resting ECG sinus bradycardia with heart rate 48 bpm. Patient achieved 87% of the maximum predicted heart rate at 173 bpm. No ischemic ECG changes noted with exercise or in recovery. ECHO/Stress Test Echo W/Contrast Interpretation Summary Excellent functional capacity. Exercise time 12 minutes. No ischemic ECG changes at 87% of the maximum predicted heart rate. No ischemic changes in recovery. No cardiac dysrhythmias noted. All left ventricular wall segments hyperdynamic postexercise. No echo evidence of ischemia. Negative exercise stress echocardiogram. Ordering Physician: Ismael Adan Referring Physician: Ismael Adan Performed By: Gabi Candelario RDCS
--- OUTSIDE RECORDS SUMMARY | 2025-06-25 12:16 | XMS RPT_ITS | CCD ---
Author Organization [place] [employer] Inform ion [facility] Care Team Providers Care Farm Labor Contractor Name Role Phone WESLY RODRIGUEZ Attending Unavailable [...] Unavailable NO, PHYSICIAN Primary Care Unavailable SHELLY NAARNJO Attending Unavailable Self, Self Primary Care Provider [...] Attending Unavaila ble Unavailable Primary Care Provider Unavailabl e SELF Referring Unavailable DEMETRIS KING JR Attending Unavailable Reza Garza Primary Care Unavailable Reza Garza Attending Unavailable Reza Garza Referring Unavailable MichaelaReza roblero Primary Care Unavailable Reza Garza Attending Unavailable Reza Garza Primary Care Unavailable Ismael Adan Attending Unavailable Reza Garza Referring Unavailable MichaelaReza roblero Referring Unavailable MichaelaReza roblero Primary Care Unavailable Reza Garza Attending Unavailable Reza Garza Referring Unavailable Rom Guevara Attending Unavailable Reza Garza Primary Care Unavailable Rom Guevara Attending Unavailable Reza Garza Primary Care Unavailable Reza Garza Primary Care Unavailable Ismael Adan Attending Unavailable Ismael Adan Referring Unavailable Jhoana Epstein Attending Unavailable Jhoana Epstein Referring Unavailable Care Physician, No Primary Primary Care Unava ilable Jhoana Epstein Referring Unavailable Care Physician, No Primary Primary Care Unava ilable Jhoana Epstein Attending Unavailable Medications Current Medications Medication Drug [...] oral solution (1 source) alpha-Adrenergic Agonist, Uncompetitive L-rmeaob-L-aspartate Receptor Antagonist, Sigma-1 Agonist Start: 11-14-2024 End: 11-21-2024 take 10 mL by mouth four times daily as needed Cmywrbtwlositeb-Glncrldjj-IC (BROMFED DM) 2-30-10 mg/5 mL syrup Indications: Fatigue, unspecified type , Acute cough Take 10 mL by mouth four times a day as needed (Cold Symptoms) for up to 7 days. 200 mL 11/14/2024 11/21/2024 Active dextromethorphan hydrobromide 15 mg / guaiFENesin 400 mg / pseudoephedrine hydrochloride 60 mg oral tablet (3 sources) alpha-Adrenergic Agonist, Uncompetitive Q-hvjbcz-F-aspartate Receptor Antagonist, Sigma-1 Agonist Start: 06-28-2023 take [...] Translations: [Anxiety disorder, unspecified] Onset: 02-24-2022 Chronic Cardiac dysrhythmias (2 sources) Bradycardia, unspecified; Translations: [Bradycardia, unspecified] Onset: 04-29-2025 Episodic Disorders of teeth and jaw (6 sources) Pulpitis; Translations: [Reversible pulpitis] Onset: 06-30-2023 06-30-2023 Episodic Fever of unknown origin (3 sources) Fever; Translations: [Fever, unspecified] Onset: 06-30-2023 06-30-2023 Episodic Malaise and fatigue (2 sources) Fatigue; Translations: [Other fatigue] Onset: 11-14-2024 11-14-2024 Episodic Mood disorders (11 sources) Major depressive disorder, single episode, unspecified; Translations: [Major depressive affective disorder, single episode, unspecified] Onset: 2022 Resolved: 01-14-2023 01-14-2023 Chronic Nonspecific chest pain (2 sources) Chest pain, unspecified; Translations: [Chest pain, unspecified] Onset: 04-29-2025 Episodic Other lower respiratory disease (1 source) Cough; Translations: [Acute cough] 11-14-2024 Episodic Other upper respiratory infections (6 sources) Sore throat symptom; Translations: [Acute pharyngitis, unspecified] Onset: 06-28-2023 06-28-2023 Episodic Substance-related disorders (1 source) Nicotine dependence, unspecified, uncomplicated; Translations: [Nicotine dependence, unspecified, uncomplicated] Onset: 04-29-2025 Chronic Syncope (5 sources) Vasovagal syncope; Translations: [Syncope and collapse] [...] Test Name Value Interpretation Reference Range Facility Cardiology Visit Reporton Cardiology Visit Report [facility] [address] [place] [address] OFFICE VISIT Date of Service: 04/29/25 MR#: [id number] Acct: [id number] Name: ABEL BENITEZ Rep #: [id number] : 2000 Provider: Dr. Ismael Adan MD Age/Sex: 24/M [place] [facility] Status: Signed HPI HPI History of Present Illness Details: This gentleman has past medical history significant for bipolar disorder. According to him, he has had 3 or 4 episodes over the last 4 years wherein he lost consciousness. According to him, the last such episode was about 4 months ago. Per patient, he walked up to his kitchen to make himself something to eat. He felt lightheaded. Started having ringing in his ears. Per him, he laid down and called his fianc???e to come over. Soon thereafter, he lost consciousness. According to him, his fianc???e later on told him that he was shaking. His eyes were noted to be open. He put a cold pack on his upper back and neck and with that the patient woke up. No bladder or bowel incontinence. No tongue bite. Patient has had an echocardiogram done. It was unremarkable. He has also had 48-hour Holter monitoring done. No cardiac arrhythmias or heart blocks were noted. No family history of sudden cardiac . Father in his 30s with a heroin overdose. Patient denies any palpitations. Denies any orthopnea or PND. He does have some chest tightness with strenuous exertion only. He is physically active and rides his bicycle regularly. Denies any shortness of breath. No ankle edema. Positive nicotine dependence. Occasional marijuana abuse. Intake Vital Signs 11/06/24 10:21 04/29/25 08:39 Height 6 ft 3 in 6 ft 3 in Weight: 219 lb BMI 27.3 BP 121/73 H Blood Pressure Location Lt brachial Position Sitting Respiration 16 Pulse 66 Pulse Source Monitor Intake Visit Reasons: BRADYCARDIA (MICHAELA) Ar Manager Required: No Accompanied by: Self Is patient in pain?: No Allergies No Known Allergies Allergy (Verified 11/06/24 10:01) Medications ???Medication ???Instructions ???Recorded ???Confirmed ???Type aripiprazole 2 mg tablet 2 mg PO QDAY 04/29/25 04/29/25 His tory escitalopram oxalate 10 mg tablet 10 mg PO QDAY 04/29/25 04/29/25 H istory Have you fallen in the past year?: Yes (december-passed out and fell) PFSH Medical History (Updated 04/29/25 @ 09:[address] Ismael Adan MD) Depression Bradycardia Syncope Anxiety disorder, unspecified Bipolar 2 disorder Social History (Updated 04/16/25 @ 11:56 by Kimmy Callaway) Smoking Status: Current every day smoker alcohol intake: never substance use type: marijuana what type of physical activity do you participate in: bicycling ROS Const Const: Negative for fatigue or weakness Eyes Eyes: Negative for change in vision ENT ENT: Positive for dizziness (3-4 times over last 3 yrs); Negative for balance problems Cardio Chest Pain: Yes (x 1 since february) Character: dull Location: left chest Duration: brief Palpitations: No Edema: None Resp Respiratory: Negative for SOB with activity, SOB at rest or SOB orthopnea SOB lying down GI GI: Negative nausea or heartburn Musc Musc: Negative for balance problems Neuro Neuro: Positive for dizziness (3-4 times over last 3 yrs) and syncope (x 1 in december ); Negative for lightheadedness, near syncope or weakness Endo Endo: Negative for fatigue Cardiology Exam Const Appearance: comfortable and no acute distress Nutritional Appearance: well nourished Neck Neck: no JVD Carotids: Negative bruit Chest Auscultation: Bilateral: Clear to Auscultation Cardio Rate: regular rate Rhythm: regular rhythm Heart sounds: S1 normal and S2 normal Neuro General: patient alert, patient awake and patient oriented x3 Extremities Lower Extremity Edema: None: Bilateral Supplemental Info Supplemental Information Labs: LDL Cholesterol, (0-130) 67 mg/dL HDL Cholesterol, (40-) 36 mg/dL L Cholesterol, (200) 160 mg/dL Triglycerides, (-199) 284 mg/dL H Diagnostics: Echocardiogram Abdomen/Pelvis CT Past Visits: Cardiology Visit Today Assessment and Plan Assessment and Plan (1) Syncope: Status: Chronic Plan: There is a question of seizure per history. I recommend that the patient see a neurologist. Cardiac gupta, I will check a tilt table test for the patient. (2) Exertional chest pain: Status: Chronic Plan: Check exercise stress echo. (3) Nicotine dependence: Status: Chronic Plan: Quit smoking. (4) Bipolar disorder: Status: Chronic Plan: As per psychiatry. Orders: Orders 12 Lead EKG performed by [facility] Today R00.1 - Bradycardia, unspecified, R55 - Syncope and collapse Plan Details Follow Up: 3 Months (more content not included)... Normal [facility] Echo Completeon 03-12-2025 Echo Complete [facility] [place] [address] [address] [place] [address] Echo Complete 03/12/25 1358 MR#: [id number] Acct: [id number] Name: ABEL BENITEZ Rep #: [id number] : 2000 24 From: Rom Guevara MD Attending Dr: Dr. Reza Garza, DO Status: REG CLI Ordering Dr: Reza Garza DO Date: 03/12/25 Location: [facility] Sex: M C Admitted: Reason For Study Reason For Study: SYNCOPE/ BRADYCARDIA Left Ventricle Normal LV size. Left ventricular systolic function is normal. No regional wall motion abnormalities noted. Right Ventricle Normal RV size. Normal systolic function. Atria Normal left atrium. Normal right atrium. Bubble contrast study is negative for PFO/ASD. Mitral Valve Normal mitral valve. Tricuspid Valve Normal tricuspid valve. Aortic Valve Normal aortic valve. Pulmonic Valve Normal pulmonic valve. Great Vessels Normal aortic root. The pulmonary artery is normal size. Inferior vena cava collapse with respiration. Pericardium/Pleural No pericardial effusion. Medication 22 gauge I.V. with prn adaptor inserted into right arm. Performed a rapid injection of agitated mix of 9 cc saline and 1cc air to assess for atrial septal defect. MMode/2D Measurements Calculations LVIDd: 4.9 cm IVSd: 0.94 cm LVOT diam: 2.4 cm LVIDs: 2.9 cm LVPWd: 0.86 cm LVOT area: 4.5 cm2 RVDd: 4.2 cm FS: 40.6 % CO(Teich): 4.3 l/min asc Aorta Diam: 2.7 cm LAV(MOD-bp): 47.4 ml LAV(MOD-bp) Indexed: 20.7 ml/m2 LAV(MOD-sp2): 53.9 ml LAV(MOD-sp4): 38.7 ml CO(MOD-sp4): 2.8 l/min LVAd ap4: 31.0 cm2 LVAd ap2: 31.3 cm2 SV(MOD-sp4): 53.7 ml LVLd ap4: 8.1 cm LVLd ap2: 8.6 cm EDV(MOD-sp4): 95.4 ml EDV(MOD-sp2): 94.2 ml SI(MOD-sp4): 23.5 ml/m2 EDV(sp4-el): 100.2 ml EDV(sp2-el): 96.9 ml LVAs ap4: 18.5 cm2 LVAs ap2: 18.9 cm2 LVLs ap4: 7.1 cm LVLs ap2: 7.2 cm ESV(MOD-sp4): 41.7 ml ESV(MOD-sp2): 42.1 ml ESV(sp4-el): 41.0 ml ESV(sp2-el): 41.7 ml EF(MOD-sp4): 56.3 % EF(MOD-sp2): 55.4 % EF(sp4-el): 59.1 % SV(MOD-sp2): 52.2 ml SV(sp4-el): 59.2 ml Ao sinus diam: 3.4 cm SI(MOD-sp2): 22.8 ml/m2 Ao ST Junction: 2.7 cm LA dimension(2D): 3.4 cm LA A4 area: 15.5 cm2 TAPSE: 1.9 cm RA A4 area: 16.4 cm2 Time Measurements MV dec time: 0.11 sec Doppler Measurements Calculations MV E max holger: 72.1 cm/sec Lat Peak E' Holger: 19.7 cm/sec Med Peak E' Holger: 15.3 cm/sec MV A max holger: 51.7 cm/sec E/E' lat: 3.7 E/E' med: 4.7 MV E/A: 1.4 MV dec slope: 636.8 cm/sec2 Ao V2 max: 135.9 cm/sec LV V1 max: 107.7 cm/sec Ao max P.4 mmHg LV V1 max P.6 mmHg Ao V2 mean: 89.3 cm/sec LV V1 mean P.5 mmHg Ao mean P.7 mmHg LV V1 mean: 73.9 cm/sec Ao V2 VTI: 31.6 cm LV V1 VTI: 26.2 cm AV (velocity ratio): 0.83 NEL(I,D): 3.7 cm2 NEL(V,D): 3.6 cm2 CO(LVOT): 6.3 l/min PA V2 max: 109.0 cm/sec PI end-d holger: 82.3 cm/sec SV(LVOT): 117.2 ml TR max holger: 209.7 cm/sec TR max P.6 mmHg ECHO/Echo Complete Interpretation Summary Normal LV size. Left ventricular systolic function is normal. Bubble contrast study is negative for PFO/ASD. No regional wall motion abnormalities noted. Ordering Physician: Reza Garza Referring Physician: Reza Garza Performed By: Gabi Candelario RDCS 03/17/25 132 Date Rom Guevara MD CC: Dr. Reza Garza, DO Date Dictated: 03/12/25 1358 Date Transcribed: 03/17/251320 [employer] Attendant: Signed Normal [facility] CBC W/Diff, Automatedon 080 Absolute Lymph 2.12 X10 3/uL Normal 0.83-4.51 [facility] Comment on above: Performed By: #### L 506.0400, L100.0100, L500.4050, L501.9520 #### [facility] [address] [place], [address] Absolute Neut 3.3 X10 3/uL Normal 2.0-7.7 [facility] Comment on above: Performed By: #### L 506.0400, L100.0100, L500.4050, [id number] #### [facility] [address] [place], [address] Basophils/100 WBC (Bld) 0.8 % Normal 0-1 [facility] Comment on above: Performed By: #### L 506.0400, L100.0100, L500.4050, [id number] #### [facility] [address] [place], [address] Eosinophils/100 WBC (Bld) 0.8 % Normal 0-5 [facility] Comment on above: Performed By: #### L 506.0400, L100.0100, L500.4050, [id number] #### [facility] [address] [place], [address] Erythrocyte distribution width (RBC) [Ratio] 12.6 % Normal 11.6-14.6 [facility] Comment on above: Performed By: #### L 506.0400, L100.0100, L500.4050, [id number] #### [facility] [address] [place], [address] Hematocrit (Bld) [Volume fraction] 40.5 % Normal 40-54 [facility] Comment on above: Performed By: #### L 506.0400, L100.0100, L500.4050, [id number] #### [facility] [address] [place], [address] Hemoglobin (Bld) [Mass/Vol] 13.8 g/dL Normal 13.0-16.5 [facility] Comment on above: Performed By: #### L 506.0400, L100.0100, L500.4050, [id number] #### [facility] [address] [place], [address] IG% 0.300 Normal 0.0-0.9 [facility] Comment on above: Result Comment: IG% - Immature Granulocytes (promyelocytes, myelocytes and metamyelocytes) > 1% indicates that a LEFT SHIFT is Present. Performed By: #### L 506.0400, L100.0100, L500.4050, L501.9520 #### [facility] [address] [place], [address] Lymphocytes/100 WBC (Bld) 35.5 % Normal 19-41 [facility] Comment on above: Performed By: #### L 506.0400, L100.0100, L500.4050, [id number] #### [facility] [address] [place], [address] MCH (RBC) [Entitic mass] 30.9 pg Normal 27.0-32.0 [facility] Comment on above: Performed By: #### L 506.0400, L100.0100, L500.4050, [id number] #### [facility] [address] [place], [address] MCHC (RBC) [Mass/Vol] 34.1 g/dL Normal 32-36 [facility] Comment on above: Performed By: #### L 506.0400, L100.0100, L500.4050, [id number] #### [facility] [address] [place], [address] MCV (RBC) [Entitic vol] 90.8 fL Normal 80-94 [facility] Comment on above: Performed By: #### L 506.0400, L100.0100, L500.4050, [id number] #### [facility] [address] [place], [address] Monocytes/100 WBC (Bld) 6.5 % Normal 0-10 [facility] Comment on above: Performed By: #### L 506.0400, L100.0100, L500.4050, [id number] #### [facility] [address] [place], [address] Neutrophils/100 WBC (Bld) 56.1 % Normal 47-70 [facility] Comment on above: Performed By: #### L 506.0400, L100.0100, L500.4050, [id number] #### [facility] [address] [place], [address] Nucleated RBC (Bld) [#/Vol] 0 10*3/uL Normal 0-5 [facility] Comment on above: Performed By: #### L 506.0400, L100.0100, L500.4050, L501.9520 #### [facility] [address] [place], [address] Platelet mean volume (Bld) [Entitic vol] 10.6 fL Normal 6.2-12.0 [facility] Comment on above: Performed By: #### L 506.0400, L100.0100, L500.4050, L501.9520 #### [facility] [address] [place], [address] Platelets (Bld) [#/Vol] 198 10*3/uL Normal 150-450 [facility] Comment on above: Performed By: #### L 506.0400, L100.0100, L500.4050, L501.9520 #### [facility] [address] [place], [address] RBC (Bld) [#/Vol] 4.46 10*6/uL Low 4.6-6.2 [facility] Comment on above: Performed By: #### L 506.0400, L100.0100, L500.4050, L501.9520 #### [facility] [address] [place], [address] RDW SD 42.0 fl Normal 35.1-43.9 [facility] Comment on above: Performed By: #### L 506.0400, L100.0100, L500.4050, L501.9520 #### [facility] [address] [place], [address] WBC (Bld) [#/Vol] 6.0 10*3/uL Normal 4.4-11.0 [facility] Comment on above: Performed By: #### L 506.0400, L100.0100, L500.4050, L501.9520 #### [facility] [address] [place], [address] Comprehensive Metabolic Prof [facility] 02-19-2025 Albumin [Mass/Vol] 4.6 g/dL Normal 3.5-5.0 [facility] Comment on above: Performed By: #### L 506.0400, L100.0100, L500.4050, L501.9520 #### [facility] [address] [place], [address] Albumin/Globulin [Mass ratio] 2.0 {ratio} Normal 0.9-2.4 [facility] Comment on above: Performed By: #### L 506.0400, L100.0100, L500.4050, L501.9520 #### [facility] [address] [place], [address] ALK PHOS 60 U/L Normal 40-129 [facility] Comment on above: Performed By: #### L 506.0400, L100.0100, L500.4050, L501.9520 #### [facility] [address] [place], [address] ALT [Catalytic activity/Vol] 27 U/L Normal <=46 [facility] Comment on above: Performed By: #### L 506.0400, L100.0100, L500.4050, L501.9520 #### [facility] [address] [place], [address] AST [Catalytic activity/Vol] 23 U/L Normal <=37 [facility] Comment on above: Performed By: #### L 506.0400, L100.0100, L500.4050, L501.9520 #### [facility] [address] [place], [address] Bilirubin [Mass/Vol] 0.48 mg/dL Normal 0.00-1.30 [facility] Comment on above: Performed By: #### L 506.0400, L100.0100, L500.4050, L501.9520 #### [facility] [address] [place], [address] BUN/CRE 10.1 RATIO Normal 10-20 [facility] Comment on above: Performed By: #### L 506.0400, L100.0100, L500.4050, L501.9520 #### [facility] [address] [place], [address] Calcium [Mass/Vol] 9.6 mg/dL Normal 7.6-11.0 [facility] Comment on above: Performed By: #### L 506.0400, L100.0100, L500.4050, L501.9520 #### [facility] [address] [place], [address] Chloride [Moles/Vol] 105 mmol/L Normal 98-108 [facility] Comment on above: Performed By: #### L 506.0400, L100.0100, L500.4050, L501.9520 #### [facility] [address] [place], [address] CO2 [Moles/Vol] 24.8 mmol/L Normal 21.0-32.0 [facility] Comment on above: Performed By: #### L 506.0400, L100.0100, L500.4050, L501.9520 #### [facility] [address] [place], [address] Creatinine [Mass/Vol] 0.94 mg/dL Normal 0.70-1.20 [facility] Comment on above: Performed By: #### L 506.0400, L100.0100, L500.4050, L501.9520 #### [facility] [address] [place], [address] GAP 11 Normal 5-15 [facility] Comment on above: Performed By: #### L 506.0400, L100.0100, L500.4050, L501.9520 #### [facility] [address] [place], [address] GFR/1.73 sq M.predicted among non-blacks MDRD (S/P/Bld) [Vol rate/Area] 117 mL/min/{1.73_m2} Normal >60 [facility] Comment on above: Result Comment: mL/m in/1.73m2 CKD-EPI Creatinine Equation (2020) Performed By: #### L 506.0400, L100.0100, L500.4050, L501.9520 #### [facility] [address] [place], [address] Globulin (S) [Mass/Vol] 2.2 g/dL Normal 2.2-4.2 [facility] Comment on above: Performed By: #### L 506.0400, L100.0100, L500.4050, L501.9520 #### [facility] [address] [place], [address] Glucose [Mass/Vol] 92 mg/dL Normal 70-99 [facility] Comment on above: Performed By: #### L 506.0400, L100.0100, L500.4050, L501.9520 #### [facility] [address] [place], [address] Potassium [Moles/Vol] 4.1 mmol/L Normal 3.3-5.1 [facility] Comment on above: Performed By: #### L 506.0400, L100.0100, L500.4050, L501.9520 #### [facility] [address] [place], [address] Sodium [Moles/Vol] 140 mmol/L Normal 133-145 [facility] Comment on above: Performed By: #### L 506.0400, L100.0100, L500.4050, L501.9520 #### [facility] [address] [place], [address] T PROT 6.8 g/dL Normal 5.9-8.4 [facility] Comment on above: Performed By: #### L 506.0400, L100.0100, L500.4050, L501.9520 #### [facility] [address] [place], [address] Urea nitrogen [Mass/Vol] 10 mg/dL Normal 4-19 [facility] Comment on above: Performed By: #### L 506.0400, L100.0100, L500.4050, L501.9520 #### [facility] [address] [place], [address] T4 Free Directon 02-19-2025 T4 FREE DIRECT 1.10 ng/dL Normal 0.76-1.46 [facility] Comment on above: Performed By: #### L 506.0400, L100.0100, L500.4050, L501.9520 #### [facility] [address] [place], [address] Thyroid Stim Hormone (TSH)on 02-19-2025 TSH 1.620 uIU/mL Normal 0.300-4.200 [facility] Comment on above: Performed By: #### L 506.0400, L100.0100, L500.4050, L501.9520 #### [facility] [address] [place], [address] ED NOTEon 01-30-2025 ED NOTE HNO ID: [id number] Author: ARTUR SHERMAN RN Service: Emergency Medicine Author Type: Registered Nurse Type: ED Notes Filed: 01/30/2025 21:09 Note Text: Pt states does not want to wait hours for room to be available. States is going to go somewhere that isn't as busy. Pt educated to come back if changes or he he still wants evaluated. Pt verbalized understanding Normal [facility] ED Triage Noteon 01-30-2025 ED Triage Note HNO ID: [id number] Author: DAVE MADRID PA-C Service: ? Author Type: Physician Crankshaft Straightener Type: ED Triage Notes Filed: 01/30/2025 21:10 [...] iv bolus EKG SIGNATURE: Dave Madrid PA-C [facility] CNOVon 11-14-2024 CNOV Office Visit (MMAS ) ABEL BENITEZ ([id number]) 4 M Date Time Provider Department 11/14/24 5:45 PM DEMETRIS KING JR [facility] During your visit today, we recorded the following information about you: Temperature Pulse Respiration Blood pressure 99.2 degrees 105/minute 20/minute 144/88 Weight 104.2 kg Demetris King Jr., FARM EQUIPMENT MAINTENANCE SUPERVISOR.[facility] 11/14/2024 9:19 PM Signed [facility]NNN Salima Abel Benitez is a 24 year old male. [...] treatment plan. { and Recording using ambient Qumu software for draft documentation of the visit was discussed with the patient/authorized hotel services sales representative; all questions welcomed and answered. Patient/authorized hotel services sales representative agreed to proceed MDM Procedures Demetris King Jr., FARM EQUIPMENT MAINTENANCE SUPERVISOR.[employer] 11/14/2024 6:36 PM Signed Use Tylenol and [...] Reviewed: 11/14/2024 Reviewed by: Demetris King Jr., FARM EQUIPMENT MAINTENANCE SUPERVISOR.[employer] - Fully Assessed Reason for Visit: Cough [28] Cmt: Cough, body aches, fatigue, sore throat, diarrhea x 3 days Primary Visit Diagnosis:Fatigue, unspecified type [R53.83] Other Visit Diagnosis:Acute cough [R05.1] Order(s):COVID AND INFLUENZA A/B AND RSV PCR, ROUTINE [SQCVFLRS] Order #: [id number]. #:[id number] Brompheniramine-Pseud oeph-DM (BROMFED DM) 2-30-10 mg/5 mL [...] mouth thre (more content not included)... Normal [facility] .Auto Diffon 09-21-2023 Basophil, Absolute 0.1 10 3/mcL Normal 0.0-0.3 [facility] ([place]) Comment on above: Performed By: #### A SAL, CMP, CBC, MDW, ADIFF, MORPH, GFR, ALC #### Melony [address] [address] [place], [place] [address] Basophils/100 WBC (Bld) 0.9 % Normal 0.0-2.5 [facility] ([place]) Comment on above: Performed By: #### A SAL, CMP, CBC, MDW, ADIFF, MORPH, GFR, ALC #### [facility] [address], [place] [address] Eosinophil, Absolute 0.1 10 3/mcL Normal 0.0-0.7 [facility] ([place]) Comment on above: Performed By: #### A SAL, CMP, CBC, MDW, ADIFF, MORPH, GFR, ALC #### [facility] [address], [place] [address] Eosinophils/100 WBC (Bld) 1.1 % Normal 0.0-6.0 [facility] ([place]) Comment on above: Performed By: #### A SAL, CMP, CBC, MDW, ADIFF, MORPH, GFR, ALC #### [facility] [address], [place] [address] Lymphocyte, Absolute 2.4 10 3/mcL Normal 0.9-4.3 [facility] ([place]) Comment on above: Performed By: #### A SAL, CMP, CBC, MDW, ADIFF, MORPH, GFR, ALC #### [facility] [address] [place], [place] [address] Lymphocytes/100 WBC (Bld) 34.5 % Normal 20.0-40.0 [facility] ([place]) Comment on above: Performed By: #### A SAL, CMP, CBC, MDW, ADIFF, MORPH, GFR, ALC #### [facility] [address] [place], [place] [address] Monocyte, Absolute 0.5 10 3/mcL Normal 0.1-1.4 [facility] ([place]) Comment on above: Performed By: #### A SAL, CMP, CBC, MDW, ADIFF, MORPH, GFR, ALC #### [facility] [address] [place], [place] [address] Monocytes/100 WBC (Bld) 7.4 % Normal 2.0-13.0 [facility] ([place]) Comment on above: Performed By: #### A SAL, CMP, CBC, MDW, ADIFF, MORPH, GFR, ALC #### [facility] [place] [address] [place], [place] [address] Neutrophils/100 WBC (Bld) 56.1 % Normal 50.0-75.0 [facility] ([place]) Comment on above: Performed By: #### A SAL, CMP, CBC, MDW, ADIFF, MORPH, GFR, ALC #### [facility] [place] [address] [place], [place] [address] .GFRon 09-21-2023 GFR Non- 79 ml/min/1.73sqm Normal [facility] ([place]) Comment on above: Result Comment: GFR Population [...] By: #### A CETA, DG #### [facility] [place] [address] [place], [place] [address] GFR 96 ml/min/1.73sqm Normal [facility] ([place]) Comment on above: Result Comment: GFR Population [...] mL/min/1.73 square meters Performed By: #### A INA DG #### Melony [facility] [address] [place] [phone] .MDWon 09-21-2023 Monocyte Distribution Width 16.09 Normal 0.00-20.00 [facility] ([place]) Comment on above: Result Comment: For ED adult patients suspected of sepsis, MDW<=20.0 does not rule out sepsis or risk of sepsis Performed By: #### A SAL, CMP, CBC, MDW, ADIFF, MORPH, GFR, ALC #### Melonyphilippe [facility]mann [address] [place] [address] .Morphon 09-21-2023 Platelet Estimate Normal Normal [facility] ([place]) Comment on above: Performed By: #### A SAL, CMP, CBC, MDW, ADIFF, MORPH, GFR, ALC #### [facility] [address] [place] [address] .NEUABSon 09-21-2023 Neutrophil, Absolute 3.9 10 3/mcL Normal 2.3-8.1 [facility] ([place]) Comment on above: Performed By: #### A SAL, CMP, CBC, MDW, ADIFF, MORPH, GFR, ALC #### [facility] [address] [place] [address] ACETAon 09-21-2023 Acetaminophen [Mass/Vol] 0.0 ug/mL Normal 10.0-30.0 [facility] ([place]) Comment on above: Performed By: #### A INA DG #### Melonyphilippe Bergmann [address] [place] [phone] Vivienne 09-21-2023 Ethanol Level 4 mg/dL High 0-3 [facility] ([place]) Comment on above: Performed By: #### A SAL, CMP, CBC, MDW, ADIFF, MORPH, GFR, ALC #### [facility] [address] [address] [place] [address] CBCon 09-21-2023 Erythrocyte distribution width (RBC) [Ratio] 13.1 % Normal 11.5-15.5 [facility] ([place]) Comment on above: Performed By: #### A SAL, CMP, CBC, MDW, ADIFF, MORPH, GFR, ALC #### [facility] [address] [place], [place] [address] Hematocrit (Bld) [Volume fraction] 43.6 % Normal 40.0-52.0 [facility] ([place]) Comment on above: Performed By: #### A SAL, CMP, CBC, MDW, ADIFF, MORPH, GFR, ALC #### [facility] [address] [place], [place] [address] Hgb 14.8 G/dL Normal 13.0-17.5 [facility] ([place] Comment on above: Performed By: #### A SAL, CMP, CBC, MDW, ADIFF, MORPH, GFR, ALC #### [facility] [address] [place], [place] [address] MCH (RBC) [Entitic mass] 32.0 pg Normal 27.0-33.0 [facility] ([place] Comment on above: Performed By: #### A SAL, CMP, CBC, MDW, ADIFF, MORPH, GFR, ALC #### [facility] [address] [place], [place] [address] MCHC 33.9 G/dL Normal 32.0-36.0 [facility] ([place] Comment on above: Performed By: #### A SAL, CMP, CBC, MDW, ADIFF, MORPH, GFR, ALC #### [facility] [address] [place], [place] [address] MCV (RBC) [Entitic vol] 94.5 fL Normal 81.0-100.0 [facility] ([place] Comment on above: Performed By: #### A SAL, CMP, CBC, MDW, ADIFF, MORPH, GFR, ALC #### [facility] [address] [place], [place] [address] Platelet 201 10 3/mcL Normal 150-450 [facility] ([place]) Comment on above: Performed By: #### A SAL, CMP, CBC, MDW, ADIFF, MORPH, GFR, ALC #### Melony [place] [address] [place], [place] [address] Platelet mean volume (Bld) [Entitic vol] 7.7 fL Normal 6.4-10.5 [facility] ([place]) Comment on above: Performed By: #### A SAL, CMP, CBC, MDW, ADIFF, MORPH, GFR, ALC #### Melonyphilippe Bergmann [address] [place], [place] [address] RBC 4.62 10 6/mcL Normal 4.50-6.00 [facility] ([place]) Comment on above: Performed By: #### A SLA, CMP, CBC, MDW, ADIFF, MORPH, GFR, ALC #### Melony [facility]mann [address] [place], [place] [address] WBC 7.0 10 3/mcL Normal 4.5-10.8 [facility] ([place]) Comment on above: Performed By: #### A SAL, CMP, CBC, MDW, ADIFF, MORPH, GFR, ALC #### Melonyphilippe Bergmann [address] [place], [place] [address] CMPon 09-21-2023 Albumin Level 4.5 G/dL Normal 3.5-5.0 [facility] ([place]) Comment on above: Performed By: #### A CETA, DG #### [facility] [facility] [address] [place], [place] [address] Albumin/Globulin [Mass ratio] 2.0 {ratio} Normal 1.1-2.5 [facility] ([place]) Comment on above: Performed By: #### A CETA, DG #### [facility] [address] [place], [place] [address] ALP [Catalytic activity/Vol] 62 U/L Normal 40-135 [facility] ([place]) Comment on above: Performed By: #### A CETA, DG #### [facility] [place] [address] [place], [place] [address] ALT [Catalytic activity/Vol] 23 U/L Normal 16-63 [facility] ([place]) Comment on above: Performed By: #### A CETA, DG #### [facility] [address] [place], [place] [address] AST [Catalytic activity/Vol] 14 U/L Normal 10-40 [facility] ([place] Comment on above: Performed By: #### A CETA, DG #### [facility] [address] [place], [place] [address] Bili Total 0.3 mg/dL Normal 0.2-1.0 [facility] ([place]) Comment on above: Result Comment: Use of this assay is not recommended for patients undergoing treatment with eltrombopag due to the potential for falsely elevated results. Performed By: #### A CETA, DG #### [facility] [address] [place], [place] [address] BUN/Creatinine Ratio 9 ratio Normal 7-27 [facility] ([place]) Comment on above: Performed By: #### A CETA, DG #### [facility] [address] [place], [place] [address] Calcium [Mass/Vol] 9.6 mg/dL Normal 8.4-10.2 [facility] ([place]) Comment on above: Performed By: #### A CETA, DG #### [facility] [address] [place], [place] [address] Chloride [Moles/Vol] 104 mmol/L Normal 98-107 [facility] ([place]) Comment on above: Performed By: #### A CETA, DG #### [facility] [address] [place], [place] [address] CO2 [Moles/Vol] 33 mmol/L High 22-29 [facility] ([place]) Comment on above: Performed By: #### A CETA, DG #### [facility] [address] [place], [place] [address] Creatinine [Mass/Vol] 1.17 mg/dL Normal 0.70-1.30 [facility] ([place]) Comment on above: Performed By: #### A CETA, DG #### [facility] [address] [place], [place] [address] Electrolyte Balance 5.0 mEq/L Normal 4.0-15.0 [facility] ([place]) Comment on above: Performed By: #### A INA, DG #### Melony [place] [address] [place], [place] [address] Globulin 2.2 G/dL Normal [facility] ([place] Comment on above: Performed By: #### A INA, DG #### [facility]ony [place] [address] [place], [place] [address] Glucose [Mass/Vol] 79 mg/dL Normal 70-105 [facility] ([place]) Comment on above: Performed By: #### A INA, GD #### [facility] [address] [place], [place] [address] Potassium [Moles/Vol] 3.8 mmol/L Normal 3.5-5.1 [facility] ([place]) Comment on above: Performed By: #### A INA, DG #### [facility] [address] [place], [place] [address] Sodium [Moles/Vol] 142 mmol/L Normal 136-145 [facility] ([place]) Comment on above: Performed By: #### A INA, DG #### [facility] [place] [address] [place], [place] [address] Total Protein 6.7 G/dL Normal 6.4-8.2 [facility] ([place]) Comment on above: Performed By: #### A INA, DG #### [facility] [place] [address] [place], [place] [address] Urea nitrogen [Mass/Vol] 11 mg/dL Normal 7-18 [facility] ([place]) Comment on above: Performed By: #### A INA, DG #### [facility] [address] [place], [place] [address] COVPCRon 09-21-2023 SARS-CoV-2 (COVID-19) RNA TIMBO+probe Ql (Unsp spec) Negative Normal Negative [facility] ([place]) Comment on above: Result Comment: This test [...] Performed By: #### C OVPCR #### Melony [place] [address] [place] [address] SALon 09-21-2023 Salicylate Level 1.6 mg/dL Low 2.8-20.0 [facility] ([place]) Comment on above: Performed By: #### A CETA, DG #### Melony [place] [address] [place] [phone] UDRUGon 09-21-2023 Amphetamine (u) Negative Normal Negative [facility] ([place]) Comment on above: Performed By: #### U DRUG #### Melony [place] [address] [place] [phone] Barbiturate (u) Negative Normal Negative [facility] ([place]) Comment on above: Performed By: #### U DRUG #### Melony [place] [address] [place] [phone] Benzodiazepine (u) Negative Normal Negative [facility] ([place]) Comment on above: Performed By: #### U DRUG #### Melony [place] [address] [place] [phone] Cannabinoid (u) Positive Abnormal Negative [facility] ([place]) Comment on above: Performed By: #### U DRUG #### Melony [place] [address] [place], [place] [address] Cocaine Ql (U) Negative Normal Negative [facility] ([place]) Comment on above: Performed By: #### U DRUG #### Melony [place] [address] [place], [place] [address] Methadone Ql (U) Negative Normal Negative [facility] ([place]) Comment on above: Performed By: #### U DRUG #### Melony [place] [address] [place], [place] [address] Opiate (u) Negative Normal Negative [facility] ([place]) Comment on above: Performed By: #### U DRUG #### Melony [place] [address] [place], [place] [address] PCP (u) Negative Normal Negative [facility] ([place]) Comment on above: Performed By: #### U DRUG #### Melony [place] [address] [place], [place] [address] Urine Drugs screened: See Below Normal [facility] ([place]) Comment on above: Performed By: #### U DRUG #### Melony [place] [address] [place], [place] [address] COVID RSV FLU PANELon 2022 FLUAV Ag IA Ql (Unsp spec) Negative Normal [facility] Comment on above: Order Comment: Use r [...] testing. Performed By: #### C RFP #### [address] [address] FLUBV Ab IA Ql (S) Negative Normal [facility] Comment on above: Order Comment: Use r [...] testing. Performed By: #### C RFP #### [address] [address] RSV BY PCR Negative [facility] Comment on above: Order Comment: Use r [...] testing. Performed By: #### C RFP #### [address] [address] SARS-CoV-2 (COVID-19) RNA TIMBO+probe Ql (Resp) Negative [facility] Comment on above: Order Comment: Use r [...] testing. Performed By: #### C RFP #### [address] [address] RESPIRATORY PANEL (COVID, [place] U, RSV)on 06-30-2023 FLUAV Ag IA Ql (Unsp spec) Negative [facility] FLUBV Ab IA Ql (S) Negative [facility] Respiratory Syncytial Virus (RSV) Negative [facility] SARS-CoV-2 (COVID-19) RNA TIMBO+probe Ql (Resp) Negative [facility] SARS-CoV-2 (COVID-19) RNA TIMBO+probe Ql (Unsp spec) This order code is for the COVID/Flu/RSV combo testing. [address] POCT MOLECULAR STREP Aon S. pyogenes Ag Ql (Throat) Negative [facility] Work Phone: [facility] Work Phone: Electrocardiogram, 12-leadon 01-16-2023 Atrial Rate 64 BPM [facility] P [place] 56 degrees [facility] P-R Interval 166 ms [facility] Q-T Interval 458 ms [facility] QRS Duration 86 ms [facility] QTC Calculation (Bezet) 472 ms [facility] R [place] 48 degrees [facility] T [place] 42 degrees [facility] Ventricular Rate 64 BPM [facility] Normal sinus rhythm with sinus arrhythmia Normal ECG Confirmed by Ellyn Blake MD ([id number]) on 01/16/2023 1:34:40 PM [facility] CBC Auto Differentialon Basophils (Bld) [#/Vol] 0.05 10*3/uL [facility] Basophils/100 WBC (Bld) 0.9 % [facility] Eosinophils (Bld) [#/Vol] 0.05 10*3/uL [facility] Eosinophils/100 WBC (Bld) 0.9 % [facility] Erythrocyte distribution width (RBC) [Entitic vol] 12.9 % 11.6 - 14.8 % [facility] Hematocrit (Bld) [Volume fraction] 38.4 % Low 41.0 - 53.0 % [facility] Hemoglobin (Bld) [Mass/Vol] 13.0 g/dL Low 13.5 - 17.5 g/dL [facility] Immature granulocytes (Bld) [#/Vol] 0.02 10*3/uL [facility] Immature granulocytes/100 WBC (Bld) 0.30 % [facility] Comment on above: The IG parameter is the percentage of metamyelocytes, myelocytes and promyelocytes. An immature granulocyte count (IG) of 1% or more suggests the possibility of infection, an IG count of 3% is very likely related to an infection. Interpretation and review of laboratory results Abnormal [facility] Lymphocytes (Bld) [#/Vol] 2.27 10*3/uL [facility] Lymphocytes/100 WBC (Bld) 39.3 % [facility] MCH (RBC) [Entitic mass] 31.9 pg 26.0 - 34.0 pg [facility] MCHC (RBC) [Mass/Vol] 33.9 g/dL 31.0 - 37.0 g/dL [facility] MCV (RBC) [Entitic vol] 94.3 fL 80.0 - 100.0 fL [facility] Monocytes (Bld) [#/Vol] 0.49 10*3/uL [facility] Monocytes/100 WBC (Bld) 8.5 % [facility] Neutrophils (Bld) [#/Vol] 2.89 10*3/uL [facility] Neutrophils/100 WBC (Bld) 50.1 % [facility] Nucleated RBC (Bld) [#/Vol] 0.00 10*3/uL [facility] Nucleated RBC/100 WBC (Bld) [Ratio] 0.0 % [facility] Platelet mean volume (Bld) [Entitic vol] 9.9 fL 9.4 - 12.4 fL [facility] Platelets (Bld) [#/Vol] 156 10*3/uL [facility] RBC (Bld) [#/Vol] 4.07 10*6/uL Low [facility] WBC (Bld) [#/Vol] 5.77 10*3/uL [facility] Comprehensive metabolic 2000 panelon 01-14-2023 Albumin [Mass/Vol] 3.9 g/dL 3.2 - 5.2 g/dL [facility] ALP [Catalytic activity/Vol] 52 U/L Low 75 - 270 U/L [facility] ALT [Catalytic activity/Vol] 16 U/L 14 - 65 U/L [facility] Anion gap [Moles/Vol] 7 mmol/L Low 10 - 20 mmol/L [facility] AST [Catalytic activity/Vol] 8 U/L 0 - 45 U/L [facility] Bilirubin [Mass/Vol] 1.2 mg/dL 0.0 - 1 .3 mg/dL [facility] Calcium [Mass/Vol] 9.4 mg/dL 8.4 - 10. 2 mg/dL [facility] Chloride [Moles/Vol] 111 mmol/L High 98 - 10 8 mmol/L [facility] Creatinine [Mass/Vol] 0.88 mg/dL 0.50 - 1.30 mg/dL [facility] GFR/1.73 sq M.predicted CKD-EPI (S/P/Bld) [Vol rate/Area] 126 - PINF [facility] Comment on above: Estimated GFR was ca lculated using the 2020 CKD-EPI creatinine equation. Glucose [Mass/Vol] 90 mg/dL 65 - 99 mg/dL [facility] HCO3 [Moles/Vol] 30 mmol/L 21 - 32 mmol/L [facility] Interpretation and review of laboratory results Abnormal [facility] Potassium [Moles/Vol] 3.5 mmol/L 3.5 - 5.1 mmol/L [facility] Protein [Mass/Vol] 6.6 g/dL 6.0 - 8.0 g/dL [facility] Sodium [Moles/Vol] 144 mmol/L 135 - 145 mmol/L [facility] Urea nitrogen [Mass/Vol] 13 mg/dL 8 - 25 mg/dL [facility] Urea nitrogen/Creatinine [Mass ratio] 14.8 mg/mg 10.0 - 20.0 [facility] has implemented the eGFR calculation approach that does not have a coefficient for race that conforms to the NKF-ASN Task Force Recommendations. [facility] Lipid 1996 panelon 3 Cholesterol [Mass/Vol] 103 mg/dL 100 - 199 mg/dL [facility] Comment on above: National Cholesterol Education Program Guidelines: Cholesterol Desirable: <200 mg/dL Borderline High: 200-239 mg/dL High: greater than or equal to 240 mg/dL Cholesterol in HDL [Mass/Vol] 48 mg/dL 40 - 59 mg/dL [facility] Comment on above: National Cholesterol Education Program Guidelines: HDL Cholesterol Low: <40 mg/dL Near Optimal: 40-59 mg/dL High: greater than or equal to 60 mg/dL Cholesterol in LDL [Mass/Vol] 37 mg/dL 10 - 130 mg/dL [facility] Comment on above: National Cholesterol Education Program Guidelines: LDL Cholesterol Optimal: <100 mg/dL Near Optimal/above Optimal: 100-129 mg/dL Borderline High: 130-159 mg/dL High: 160-189 mg/dL Very High: greater than or equal to 190 mg/dL Cholesterol non HDL [Mass/Vol] 55 mg/dL [facility] Comment on above: National Cholesterol Education Program Guidelines: NON HDL Cholesterol Desirable: <130 mg/dL Borderline High: 130-159 mg/dL High: 160-189 mg/dL Very High: > or = 190 mg/dL Cholesterol.total/Ch olesterol in HDL [Mass ratio] 2.1 {ratio} ratio [facility] Comment on above: Males Cholesterol/HD L Ratio: Average risk: 5.0 1/2 average risk: 3.4 2 x average risk: 9.6 Triglyceride [Mass/Vol] 89 mg/dL 30 - 150 mg/dL [facility] Comment on above: National Cholesterol Education Program Guidelines: Triglyceride Normal: <150 mg/dL Borderline High: 150-199 mg/dL High: 200-499 mg/dL Very High: greater than or equal to 500 mg/dL No Panel Informationon 01-14 [facility] TSH DL <= 0.005 mIU/L Qnon 0 01-14-2023 Interpretation and review of laboratory results Normal [facility] TSH Qn 0.50 m[IU]/L [facility] Alcohol, Medicalon 3 Ethanol [Mass/Vol] mg/dL NINF - 10 .00 mg/dL [facility] Comment on above: Alcohol cutoff: <10. 00 mg/dL = None Detected Ethanol [Mass/Vol]on 023 Interpretation and review of laboratory results Normal [facility] Lavender Topon 01-13-2023 Extra Tube Hold for add-ons. [facility] Comment on above: Auto resulted. [facility] No Panel Informationon 01-13 Extra Tube Hold for add-ons. [facility] Comment on above: Auto resulted. [facility] Urine Drug Screenon 01-14-20 23 Amphetamines Ql (U) Not detected None Detected [facility] Comment on above: Urine Amphetamine Cu toff: < 1000 ng/mL = None Detected Barbiturates Screen Ql (U) Not detected None Detected [facility] Comment on above: Urine Barbiturates C utoff: < 200 ng/mL = None Detected Benzodiazepines Ql (U) Not detected None Detected [facility] Comment on above: Urine Benzodiazepine Cutoff: < 200 ng/mL = None Detected Buprenorphine Ql (U) Not detected None Detected [facility] Comment on above: Urine Buprenorphine Cutoff: < 5 ng/mL = None Detected Cannabinoids Screen Ql (U) Positive Abnormal None Detected [facility] Comment on above: Urine Cannabinoids C utoff: < 50 ng/mL = None Detected Cocaine Ql (U) Not detected None Detected [facility] Comment on above: Urine Cocaine Cutoff : < 300 ng/mL = None Detected fentaNYL+Norfentanyl Screen Ql (U) Not detected None Detected [facility] Comment on above: Urine Fentanyl Cutof f: < 1 ng/mL = None Detected Interpretation and review of laboratory results Abnormal [facility] Methadone Screen Ql (U) Not detected None Detected [facility] Comment on above: Urine Methadone Cuto ff: < 300 ng/mL = None Detected Opiates Screen Ql (U) Not detected None Detected [facility] Comment on above: Urine Opiates [...] should be used for treatment purposes only. [facility] ED Clinical Summaryon 2021 ED Clinical Summary [address], [address] Fax: [phone] PERSON INFORMATION Name: ABEL BENITEZ Age: 21 Years : 2000 Sex: Male Language: German PCP: Marital Status: Single Med Service: Emergency Medicine Arrival: 11/07/2021 02:05:39 Visit Reason: Finger pain-swelling; Ring stuck on finger Acuity: 5 LOS: 000 01:39 Address: [address] [place] [address] Diagnosis: Constriction injury of finger Medications Administered: [...] PATIENT EDUCATION INFORMATION Instructions: Finger Sprain, Adult, [id number] Follow up: With: Address: When: Follow up with primary care provider In 1 week 11/14/2021, only if needed Comments: Return for any worsening or worrisome symptoms Normal [facility] ED Note Physicianon 11-08-19 ED Note Physician [...] continue to monitor closely Assessment/Plan Finger pain-swelling [id number] Final Diagnosis: Ring stuck on finger Problem [...] available. Electronically Signed on 11/07/21 04:35 MD Kumar Trishena R Normal [facility] ED Patient Summaryon 022 ED Patient Summary [facility] Emergency Department [address] [phone] Discharge Instructions (Patient) Name:ABEL BENITEZ : 2000 [facility]: [id number] Reason For Visit: Finger pain-swelling Final Diagnosis: Constriction injury of finger Visit Date: 11/07/2021 02:05:39 Address: [address] [place] [address] Primary Care Provider: Name: Phone: Emergency Department Providers:Primary Physician: MD Kumar Trishena R [facility] would like to thank you for allowing [...] symptoms Patient Education Materials: Finger Sprain, Adult, [id number] Finger Sprain, Adult A finger sprain is [...] sitting or lying down. Medicines ?? Take [id number] and prescription medicines only as told by [...] provider. Document Revised: 06/15/2018 Document Reviewed: 2017 [employer] Patient Education ? 2020 [employer] Allergy Info: No Known Allergies Medication Information: [facility] ED Physicians provided you with a complete list of medications post discharge, if you have been instructed to stop taking a medication please ensure you also follow up with this information to your Primary Care Physician. Unless otherwise noted, patient will continue to take medications as prescribed prior to the Emergency Room visit (more content not included)... Normal [facility] CNOVon 07-29-2019 CNOV Office Visit (UCWSTR ) ABEL BENITEZ ([id number]) [birth year] M Date Time Provider Department 07/29/19 3:30 PM [facility] [facility] During your visit today, we recorded the following information about you: Temperature Pulse Respiration Blood pressure 98.1 degrees 101/minute 18/minute 102/70 Weight 94.5 kg Nadege Nagel APRN.MARINE STEAMFITTER 07/29/2019 4:27 PM Signed [facility] PATIENT [...] to anyone within 6 feet. Nadege Nagel APRN.MARINE STEAMFITTER 07/29/2019 4:37 PM Signed Subjective HPI Pt [...] Diagnosis:Sore throat [J02.9] Order(s):RAPID STREP TEST B/O [8177960] Order #: [id number] GROUP A STREPTOCOCCUS BY PCR [SQGASPCR] Order #: [id number] predniSONE (DELTASONE) 20 mg tabletTake 2 tablets [...] 20 MG CAPSULE,DELAYED RELEASE >> Liliana Parkinson LPN 07/29/2019 3:54 PM >> LILIANA PARKINSON LPN [...] NAGEL CNP on 07/29/19 Normal [facility] Group A Strep by PCRon 07-29 GAS Specimen Source Throat Swab Normal [facility] Comment on above: Performed By: #### G ASPCR #### [facility] [address], [place] [address] Group A Strep PCR Negative Normal [facility] Comment on above: Result Comment: This test was developed and its performance characteristics determined by [facility]'s Collin Trotter [facility] Pathology and Laboratory Medicine [facility] It has not been cleared or approved by the FDA. [facility] is regulated under CLIA as qualified to perform high complexity testing. This test is used for clinical purposes. It should not be regarded as investigational or for research. Performed By: #### G ASPCR #### [facility] [employer] [address], [place] [address] PROGRESSon 07-29-2019 PROGRESS HNO ID: [id number] Author: Nadege Nagel Service: ? Author Type: [...] care. Nadege Nagel CNP Normal [facility] CNOVon 05-02-2019 CNOV Office Visit (UCWSTR ) ABEL BENITEZ ([id number]) 4 M Date Time Provider Department 05/02/19 2:00 PM SHAI GUERRERO [facility] During your visit today, we recorded the [...] Known Allergies) Date Reviewed: 05/02/2019 Reviewed by: Lesia Oates Ma - Fully Assessed Reason for [...] Status:Closed by SHAI GUERRERO MD on 05/02/19 [facility] PROGRESSon 05-02-2019 PROGRESS HNO ID: [id number] Author: Shai Guerrero Service: ? Author Type: [...] 100,000 UNIT/GRAM TOPICAL POWDER Shai Guerrero MD [facility] Vital Signs Date Time Vital Sign Value Performing Clinician Faci lity 11-14-2024 18:03-0400 Body temperature 99.19 [degF] Demetris King Jr., FARM EQUIPMENT MAINTENANCE SUPERVISOR.MARINE STEAMFITTER Work Phone: [facility] 11-14-2024 18:03-0400 Body weight 104.24 kg Demetris King Jr., FARM EQUIPMENT MAINTENANCE SUPERVISOR.MARINE STEAMFITTER Work Phone: [facility] 11-14-2024 18:03-0400 Diastolic blood pressure 88 mm[Hg] Demetris King Jr., FARM EQUIPMENT MAINTENANCE SUPERVISOR.MARINE STEAMFITTER Work Phone: [facility] 11-14-2024 18:03-0400 Heart rate 105 /min Demetris King Jr., FARM EQUIPMENT MAINTENANCE SUPERVISOR.MARINE STEAMFITTER Work Phone: [facility] 11-14-2024 18:03-0400 Respiratory rate 20 /min Demetris King Jr., FARM EQUIPMENT MAINTENANCE SUPERVISOR.MARINE STEAMFITTER Work Phone: [facility] 11-14-2024 18:03-0400 SaO2% (BldA) [Mass fraction] 98 % Demetris King Jr., FARM EQUIPMENT MAINTENANCE SUPERVISOR.MARINE STEAMFITTER Work Phone: [facility] 11-14-2024 18:03-0400 Systolic blood pressure 144 mm[Hg] Demetris King Jr., FARM EQUIPMENT MAINTENANCE SUPERVISOR.MARINE STEAMFITTER Work Phone: [facility] 07-01-2023 14:57-0500 Body temperature 98.2 [degF] Giorgio Suellen DO Work Phone: [facility] 07-01-2023 14:57-0500 Diastolic blood pressure 85 mm[Hg] Giorgio Ken DO Work Phone: [facility] 07-01-2023 14:57-0500 Heart rate 76 /min Giorgio Ken DO Work Phone: [facility] 07-01-2023 14:57-0500 Respiratory rate 14 /min Giorgio Ken DO Work Phone: [facility] 07-01-2023 14:57-0500 SaO2% (BldA) [Mass fraction] 97 % Giorgio Ken DO Work Phone: [facility] 07-01-2023 14:57-0500 Systolic blood pressure 152 mm[Hg] Giorgio Ken DO Work Phone: [facility] 06-30-2023 11:04-0500 Body height 190.5 cm Edis Castle DO Work Phone: [facility] 06-30-2023 11:04-0500 Body mass index (BMI) [Ratio] 24.47 kg/m2 Edsi Castle DO Work Phone: [facility] 06-30-2023 11:04-0500 Body weight 88.8 kg Edis Castle DO Work Phone: [facility] 06-30-2023 10:59-0500 Body temperature 101.3 [degF] Edis Castle DO Work Phone: [facility] 06-30-2023 10:59-0500 Diastolic blood pressure 69 mm[Hg] Edis Castle DO Work Phone: [facility] 06-30-2023 10:59-0500 Heart rate 109 /min Edis Castle DO Work Phone: [facility] 06-30-2023 10:59-0500 Respiratory rate 18 /min Edis Castle DO Work Phone: [facility] 06-30-2023 10:59-0500 SaO2% (BldA) [Mass fraction] 97 % Edis Castle DO Work Phone: [facility] 06-30-2023 10:59-0500 Systolic blood pressure 129 mm[Hg] Edis Monroeugh DO Work Phone: [facility] 06-28-2023 12:16-0500 Body temperature 99.81 [degF] Merlin Addison EXERCISER Work Phone: [facility] 06-28-2023 12:16-0500 Heart rate 97 /min [facility] EXERCISER Work Phone: [place] [id number] 12:16-0500 Respiratory rate 16 /min Merlin Cleaning EXERCISER Work Phone: [facility] 06-28-2023 12:16-0500 SaO2% (BldA) [Mass fraction] 99 % Merlin Cleaning EXERCISER Work Phone: [facility] 01-18-2023 08:12-0400 Body temperature 97.9 [degF] Rafal Trevino MD Work Phone: [facility] 01-18-2023 08:12-0400 Diastolic blood pressure 73 mm[Hg] Rafal Trevino MD Work Phone: [facility] 01-18-2023 08:12-0400 Heart rate 58 /min Rafal Trevino MD Work Phone: [facility] 01-18-2023 08:12-0400 Respiratory rate 16 /min Rafal Trevino MD Work Phone: [facility] 01-18-2023 08:12-0400 SaO2% (BldA) [Mass fraction] 100 % Rafal Trevino MD Work Phone: [facility] 01-18-2023 08:12-0400 Systolic blood pressure 115 mm[Hg] Rafal Trevino MD Work Phone: [facility] 01-14-2023 01:58-0400 Body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 through the [facility] Physician Referral Service by calling [phone] or by visiting [email or web address] Thank You for choosing the [facility] Emergency Department! The following attachments cannot be sent through Care Everywhere.Vasovagal Syncope (German)documented in this encounter [facility] 12-30-2022 Emergency department Note This RN was [...] to RM 6 in pt ED cot. [facility] 12-30-2022 Physician Emergency department Note Emergency Department Report [facility] EMERGENCY DEPARTMENT Service Date:.12/30/22 PCP: No primary [...] palpated pulse)-provider notified, no further orders. KLEBER Abel Benitez is a 22 y.o. male presents [...] above information. Pina Cobos DO 12/30/22 0140 [facility] 03-18-2022 History of Present illness Narrative This BHP trophy assembler attempted to contact patient regarding referral to BHI program placed by PCP at request of BHP. The patient did not answer. Left voice mail message at patient's contact number with request for return call. THIRD and FINAL attempt. [phone] Behavioral Health Screenings: JACY-7 02/24/2022 JACY-7 Score 18 PHQ-9 02/24/2022 PHQ-9 Total Score 19 documented in this encounter [facility] 02-25-2022 History of Present illness Narrative This BHP trophy assembler attempted to contact patient regarding referral to BHI program placed by PCP at request of BHP. The patient did not answer. Left voice mail message at patient's contact number with request for return call. First attempt. [phone] Behavioral Health Screenings: JACY-7 02/24/2022 JACY-7 Score 18 PHQ-9 02/24/2022 PHQ-9 Total Score 19 documented in this encounter [facility] 02-24-2022 Evaluation + Plan note Associated Problem(s): Anxiety and depression Ordered prozac 10mg Referral placed for [facility] 02-24-2022 Miscellaneous Notes Associated Problem(s): Anxiety and depression Ordered prozac 10mg Referral placed for [facility] documented in this encounter [facility] 02-24-2022 Instructions Latoya Chambers MD - 02/24/2022 12:05 PM EDT 988 Suicide crisis hotline documented in this encounter [facility] 02-24-2022 History of Present illness [...] depression Ordered prozac 10mg Referral placed for [facility] Relevant Medications FLUoxetine (PROZAC) 10 MG capsule Other Relevant Orders Ambulatory Ref to [facility] Personnel Quality Assurance Auditor Encounter to establish care - Primary Return [...] GAD7 = 18 documented in this encounter [facility] 11-07-2021 Note Patient Education In structions Name: ABEL BENITEZ Current Date: 11/07/2021 03:44:26 [facility]: [id number] The following sheet(s) are the Patient Education Leaflets for ABEL BENITEZ Orthopedics Finger Sprain, Adult A finger sprain [...] sitting or lying down. Medicines ?? Take cibx-reb-unmloij and prescription medicines only as told by [...] provider. Document Revised: 06/15/2018 Document Reviewed: 2017 [employer] Patient Education ? 2020 [employer]. [facility] 10-29-2020 Note CHILD PSYCHIATRY OUT PATIENT PROGRESS NOTE DATE OF SERVICE: 10/29/2020 AGE: 20 y.o. GRADE: [employer], 12th grade. IEP in place. [...] a lot. Denies SI/HI/AH/VH. Denies self harm. [place] states 'I have had any anxiety. Denies feeling restless. Denies panic attacks. Mom states he has been doing very well. He is looking towards future goals. 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 He seem to have a good group of friends. We are very proud me. History of legal involvement as a minor. Previous PO ([facility], [facility]). Sleep: Abel reports sleeping well School Bedtime: Fluctuates, 1-2 AM, up at 8-10 am, varies on weekends . Appetite: Decreased. Eating 2 meals per day. Exercise: so-so, it's been lacking. I go to the gym once per month. Current Risk Level Low Acute Risk: History of past bbgtmb-ly-ve- or suicidal thoughts;Protective factors outweigh risk factors Patient able to plan for safety: yes Safety education provided to guardian: yes [place] Suicide Severity Rating Scale (C-SSRS) SUICIDAL IDEATION [...] Attempt Date: Actual Lethality/Medical Damage: Potential Lethality: [email or web address].[email or web address] Peer/Family Relationship: Lives with mom (Giorgio, step-dad (Dave), 15 y/o step-brother (Lb) , 12 y/o step-sister (Abril), and 11 y/o brother (Nico). Abel reports getting along well with family. Biological father is . Per mother father from unintentionally drug overdose. School Behavior/Grades: [employer], 12th grade. IEP in place. Completed school in July as an early graduate. Current grade B-C's. Hopes to attend an marine electrician apprentice program. Employment: Previously at [employer]. Quit last week. Seeking employment with [employer] or being an marine electrician apprentice. General Health: good Healthy Wellness check in [...] encounter. No weigh (more content not included)... [facility] 07-30-2020 Note CHILD PSYCHIATRY OUT PATIENT PROGRESS NOTE DATE OF SERVICE: 07/30/2020 AGE: 19 y.o. GRADE: [employer], 12th grade. IEP in place. [...] and motivation. 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 Denies anhedonia. Enjoys hanging out with friends and eating at local restaurants. Denies SI/HI/AH/VH. Denies self harm. Hetal states on occasion I have some anxiety but it's not very often. Denies feeling restless. Denies panic attacks. No recent issues with conduct. Previous PO ([facility]upe, [facility]). Sleep: Abel states my sleep has been ok. School Bedtime: Fluctuates, 12-2 AM, up at 7 am, varies on weekends . Appetite: Normal. Exercise: Attempting to be more active. Current Risk Level Low Acute Risk: History of past eeljoa-du-yc- or suicidal thoughts;Protective factors outweigh risk factors Patient able to plan for safety: yes Safety education provided to guardian: yes [place] Suicide Severity Rating Scale (C-SSRS) SUICIDAL IDEATION [...] Attempt Date: Actual Lethality/Medical Damage: Potential Lethality: www.cssrs.[facility] Peer/Family Relationship: Lives with mom (Giorgio, step-dad (Dave), 14 y/o step-brother (Lb) , 12 y/o step-sister (Abril), and 11 y/o brother (Nico). Abel states I have mostly been getting along with everyone. Biological father is . Per mother father from unintentionally drug overdose. School Behavior/Grades: [employer], 12th grade. IEP in place. Put on fast track option to graduate in the next couple weeks. Mom states they evaluated his credits and are giving him the trades to graduate. Hybrid approach 2 days at school and 3 days at home. [facility] [employer]. Participating in the [employer] program. Has future goals of becoming an EMT. Current grade B-C's. Behavior: No issues. Peers: no difficulty.' Employment: Working at [employer]. Averages 25-30 hours per week during school. Reports he get's along well with co-workers. Earned employee of the month. General Health: good Healthy Wellness check in 01/2019. REVIEW OF SYMPTOMS: No issues noted with constitution, EENT, cardiovascular, respiratory, GI, , musculoskeletal, integument, neuro, endocrine, hem/lymph, or allergy. OBJECTIVE: There were no vitals filed for this v (more content not included)... [facility] 04-29-2020 Note CHILD PSYCHIATRY OUT PATIENT PROGRESS NOTE DATE OF SERVICE: 04/29/2020 AGE: 19 y.o. GRADE: [employer], 12th grade. IEP in place. [...] his co-workers and it allows him socialization. [place] states things are going pretty good. I have been somewhat stressed with the school year with the learning model. When I attend school I am with the same group of kids which sucks because my friends are in the other group which I don't see that often. Abel states I don't feel to anxious about things. I have been getting used to it. [place] states my moods have been pretty good. [...] issues with conduct. Previous PO ([facility], [facility]). Sleep: Abel states my sleep has been on and off with being sick and being home to much. Bedtime: 12-3 AM.. Up at noon. Appetite: Normal. Exercise: Has been attempting to exercise more often. States It's difficult to manage with school and work. Current Risk Level Low Acute Risk: History of past jgjvrw-gb-yv- or suicidal thoughts Patient able to plan for safety: yes Safety education provided to guardian: yes [place] Suicide Severity Rating Scale (C-SSRS) [place]-Suicide Severity Rating Scale (C-SSRS) - Screener Ask [...] you do any of these? Lifetime No www.cssrs.[facility] Peer/Family Relationship: Lives with mom (Giorgio, [...] at school and 3 days at home. [facility]. Participating in the [employer] program. Reports program wasn't first choice and he hasn't taken interest to [employer]. Has future goals of becoming an ENT. Current grade B-C's. Behavior: No issues currently. Peers: no difficulty.' Employment: Working a (more content not included)... [facility] 01-20-2020 Note CHILD PSYCHIATRY OUT PATIENT PROGRESS [...] friends. . 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 Denies SI/HI/AH/VH. Denies self harm. No recent issues with conduct. Previously PO ([facility]upe, [facility]). Current Risk Level Low Acute Risk: History of past nrpsuq-dv-yz- or suicidal thoughts;Protective factors outweigh risk factors Patient able to plan for safety: yes Safety education provided to guardian: yes [place] Suicide Severity Rating Scale (C-SSRS) [place]-Suicide Severity Rating Scale (C-SSRS) - Screener Ask [...] you do any of these? Lifetime No www.cssrs.[facility] Peer/Family Relationship: Lives with mom, step-dad, 14 y/o step-brother (Lb) , 11 y/o step-sister (Abril), and 10 y/o brother (iNco). Abel states I am getting along well with everyone. . School Behavior/Grades: [employer], promoted to 12th grade.[facility]. Participating in the [employer] program. Completed school year ok academically. Has C-D's on most recent report card. Mom states he did well and was on Track beside government and that's primarily because of lack of routine. IEP in place. Behavior: No issues to completed school year. Peers: no difficulty.' Employment: Working at [employer]. Averages 20 hours per week. Reports he get's along well with co-workers. General Health: good Healthy Wellness check in 01/2019. OF SYMPTOMS: No issues noted with constitution, EENT, cardiovascular, respiratory, GI, , musculoskeletal, integument, neuro, endocrine, hem/lymph, or allergy. Sleep: Gra (more content not included)... [facility] Evaluation note Diagnosis Encounter to establish care- Primary Anxiety and depression [facility] Vasovagal episode- Primary Syncope and collapse [facility] Bipolar affective disorder, depressed, severe (HCC)- Primary Bipolar I disorder, most recent episode (or current) depressed, severe, without mention of psychotic behavior Major depressive disorder, remission status unspecified, unspecified whether recurrent Generalized anxiety disorder Severe episode of recurrent major depressive disorder, 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, without psychotic features (HCC) [facility] Diagnosis Viral illness- Primary Unspecified viral infection, in conditions classified elsewhere and of unspecified site Sore throat Acute pharyngitis documented in this encounter [employer] [facility] [employer] Phone: Evaluation note* Diagnosis Pulpitis- Primary Fever, unspecified fever cause Upper respiratory tract infection, unspecified type documented in this encounter [employer] Phone: Evaluation note* Diagnosis Pain, dental- Primary Unspecified disorder of the teeth and supporting structures documented in this encounter [employer] Phone: Evaluation note* Diagnosis Fatigue, unspecified type- Primary Acute cough documented in this encounter [facility] Summary Purpose Family History No Family [...] Referral Specialty Diagnoses / Procedures Referred By Contcharles t Referred To Contact Behavorist (Outpatient Social Work) Diagnoses Anxiety and depression Latoya Chambers MD [address] [place] [address] Referral ID Status Reason Start Date Expiration Date V isits Requested Visits Authorized [id number] Authorized 02/24/2022 02/24/2023 1 1 Additional Source Comments (unrecognized sect ion and content) No Status Records FoundNo Status Records FoundNo Status Records FoundNo Status Records FoundNo Status Records FoundNo Status Records FoundNo Status Records FoundNo Status Records FoundNo Status Records FoundNo Status Records FoundNo Status Records Found INFORMATION SOURCE (unrecogn ized section and content) DATE CREATED AUTHOR 07/30/2019 [facility] DATE CREATED AUTHOR AUTHOR'S ORGANIZ ATION 11/04/2020 [facility] DATE CREATED AUTHOR AUTHOR'S ORGANIZ ATION 11/08/2021 [facility] DATE CREATED AUTHOR AUTHOR'S ORGANIZ ATION 12/31/2021 [facility] DATE CREATED AUTHOR AUTHOR'S ORGANIZ ATION 02/25/2022 [facility] DATE CREATED AUTHOR AUTHOR'S ORGANIZ ATION 01/30/2023 [facility] DATE CREATED AUTHOR AUTHOR'S ORGANIZ ATION [place] [facility] [place] AUTHOR AUTHOR'S ORGANIZ ATION 09/01/2023 [facility] DATE CREATED AUTHOR AUTHOR'S ORGANIZ ATION 10/27/2023 [facility] ([place] DATE CREATED AUTHOR AUTHOR'S ORGANIZ ATION 02/03/2025 [facility] DATE CREATED AUTHOR AUTHOR'S ORGANIZ ATION 05/28/2025 [facility] Reason for Visit (unrecogniz ed section and content) Reason Comments Establish Care Reason Onset Date Comments Care coordination [facility] 02/25/2022 Reason Onset Date Comments Care coordination [facility] 03/18/2022 Reason Comments Syncope Pt visitor- [...] Suicidal Specialty Diagnoses / Procedures Referred By Aly michaels Referred To Contact Referral ID Status Reason Start Date Expiration Date Visits Re quested Visits Authorized [id number] 1 Reason Comments URI Pt reports symptomat ic since yesterday: Sore throat, headache, nausea, fever, cough, diarrhea, fatigue, body aches, runny nose Reason Comments Dental Pain Abscess Reason Comments Abscess Reason Comments Cough Cough, body aches, f atigue, sore throat, diarrhea x 3 days Care Teams (unrecognized sec tion and content) [employer] Relationship Specialty Start Date End Date Latoya Chambers MD [address] [place] [address] PCP - General Family Medicine 02/24/22 [employer] Relationship Specialty Start Date End Date Latoya Chambers MD [address] [place] [address] PCP - General Family Medicine 02/24/22 [employer] Relationship Specialty Start Date End Date Latoya Chambers MD [facility] [place] [address] PCP - General Family Medicine 02/24/22 [employer] Relationship Specialty Start Date End Date No, Physician [facility] PCP - General 05/11/22 [employer] Relationship Specialty Start Date End Date Self, [...] 25 mg, Oral, Daily, First dose on Mon01/16/23 at 1530 1748 (Given - Provider: Dustin [...] once after 30 minutes if still awake. 2107 (Given - Provider: Jessica Montelongo, JONO) Scheduled [...] or prosecute any alcohol or drug abuse patient.[facility] FOR RECORDS PERTAINING TO PATIENTS WHO [...] BE BASED ON THE PRIMARY CLINICAL RECORDS. [employer] [facility]. provides no warranty or guarantee of the accuracy or completeness of information in this document.
== END | disposition home or self-care (01) ==
PROVIDERS: PCP Family Medicine; Referring Provider Internal Medicine Cardiovascular Disease; Visit Provider Internal Medicine Cardiovascular Disease
DX: R55 Syncope and collapse (principal)
CPT/HCPCS: 93017; 93350; Q9957; A4216; C8928